=== PATIENT | female | born 1975 | race Caucasian/White ===

== ENCOUNTER 2016-03-16 14:41 | Emergency (ER) | payer OTHER ==
[2016-03-16] MEDS ORDERED: PHENAZOPYRIDINE 100 MG TAB PO STA (16:43)
[2016-03-16] MEDS ORDERED: SODIUM CHLORIDE 0.9% 1,000 ML IV STA (16:43)
--- NOTE | 2016-03-16 16:48 | ED ---
General Adult HPI - General Chief complaint: Syncope Stated complaint: Syncope,Fever Time Seen by Provider: 03/16/16 16:39 Source: patient, RN notes reviewed Mode of arrival: wheelchair Limitations: no limitations - History of Present Illness Initial comments: 41 yo female presents to the emergency Department chief complaint of dysuria. Patient states she's had burning with urination for the past few days. Patient states she's had a low-grade fever with this as well. Patient doesn't she should return feel lightheaded due to her pain and fever and she didn't have a simple episode. Patient's surgical injury during this. Patient states she's also had a cough with some production and some wheezing as well. Patient states she was feeling concerned she is becoming weak she thought that she should be evaluated. Patient denies any recent fever, chills, shortness of breath, chest pain, back pain, abdominal pain, nausea vomiting, numbness or tingling, constipation or diarrhea, headaches or visual changes, or any other current symptoms. - Related Data Previous Rx's Medication Instructions Recorded Orphenadrine [Norflex] 100 mg PO Q12H #10 tablet.er 02/15/16 predniSONE 50 mg PO DAILY #5 tab 02/15/16 Ciprofloxacin HCl [Cipro] 500 mg PO Q12HR #14 tablet 03/16/16 Phenazopyridine [Pyridium] 100 mg PO TID #6 tablet 03/16/16 traMADol HCl [Ultram] 50 mg PO Q4H PRN #20 tab 03/16/16 Allergies Allergy/AdvReac Type Severity Reaction Status Date / Time hydromorphone HCl Allergy Swelling Verified 03/16/16 16:10 [From Dilaudid] Review of Systems ROS Statement: Those systems with pertinent positive or pertinent negative responses have been documented in the HPI. ROS Other: All systems not noted in ROS Statement are negative. Past Medical History Past Medical History: No Reported History History of Any Multi-Drug Resistant Organisms: None Reported Past Surgical History: Section, Hernia Repair, Tubal Ligation Past Psychological History: No Psychological Hx Reported Smoking Status: Current every day smoker Past Alcohol Use History: None Reported Past Drug Use History: None Reported General Exam - General Exam Comments Initial Comments: General: The patient is awake and alert, in no distress, and does not appear acutely ill. Eye: Pupils are equal, round and reactive to light, extra-ocular movements are intact; there is normal conjunctiva bilaterally. No signs of icterus. Ears, nose, mouth and throat: There are moist mucous membranes and no oral lesions. Neck: The neck is supple, there is no tenderness. Cardiovascular: There is a regular rate and rhythm. No murmur, rub or gallop is appreciated. Respiratory: Lungs are clear to auscultation, respirations are non-labored, breath sounds are equal. No wheezes, stridor, rales, or rhonchi. Gastrointestinal: Soft, non-distended, supra pubic abdomen without masses or organomegaly noted. There is no rebound or guarding present. Bilateral CVA tenderness. Bowel sounds are unremarkable. Back: There is no tenderness to palpation in the midline. There is no obvious deformity. No rashes noted. Musculoskeletal: Normal ROM, no tenderness, There is no pedal edema. There is no calf tenderness or swelling. Sensation intact. Pulses equal bilaterally 2+. Neurological: CN II-XII intact, There are no obvious motor or sensory deficits. Coordination appears grossly intact. Speech is normal. Skin: Skin is warm and dry and no rashes or lesions are noted. Psychiatric: Cooperative, appropriate mood & affect, normal judgment. Limitations: no limitations Course Vital Signs 03/16/16 03/16/16 15:21 15:55 Temperature 98.4 F Pulse Rate 76 Respiratory 20 20 Rate Blood Pressure 101/75 O2 Sat by Pulse 99 Oximetry Medical Decision Making - Medical Decision Making 41-year-old female presents emergency Department with a chief complaint of dysuria and cough. Patient's CAT scan is reviewed. At this time the patient does appear to have medullary kidney which she was informed about. We did discuss close follow-up for this. Patient does appear to have UTI. The plan is most likely related to the infection versus possibly the sponge kidney. We did discuss with the patient. We did take antibiotics as prescribed and appropriate follow-up and return parameters. Patient stated that she understood all her questions have been answered. She will be discharged home. - Lab Data Result diagrams: 03/16/16 17:20 03/16/16 17:20 Lab Results 03/16/16 03/16/16 03/16/16 Range/Units 17:20 17:20 17:20 WBC 9.7 (3.8-10.6) k/uL RBC 4.58 (3.80-5.40) m/uL Hgb 14.1 (11.4-16.0) gm/dL Hct 42.8 (34.0-46.0) % MCV 93.6 (80.0-100.0) fL MCH 30.8 (25.0-35.0) pg MCHC 32.9 (31.0-37.0) g/dL RDW 13.0 (11.5-15.5) % Plt Count 336 (150-450) k/uL Neutrophils % 64 % Lymphocytes % 26 % Monocytes % 4 % Eosinophils % 5 % Basophils % 1 % Neutrophils # 6.2 (1.3-7.7) k/uL Lymphocytes # 2.5 (1.0-4.8) k/uL Monocytes # 0.3 (0-1.0) k/uL Eosinophils # 0.5 (0-0.7) k/uL Basophils # 0.1 (0-0.2) k/uL Sodium 145 (137-145) mmol/L Potassium 4.3 (3.5-5.1) mmol/L Chloride 107 (98-107) mmol/L Carbon Dioxide 24 (22-30) mmol/L Anion Gap 14 mmol/L BUN 15 (7-17) mg/dL Creatinine 0.71 (0.52-1.04) mg/dL Est GFR (MDRD) Af Amer >60 (>60 ml/min/1.73 sqM) Est GFR (MDRD) Non-Af >60 (>60 ml/min/1.73 sqM) Glucose 87 (74-99) mg/dL Calcium 9.2 (8.4-10.2) mg/dL Total Bilirubin 0.3 (0.2-1.3) mg/dL AST 15 (14-36) U/L ALT 28 (9-52) U/L Alkaline Phosphatase 87 (38-126) U/L Total Protein 7.8 (6.3-8.2) g/dL Albumin 4.4 (3.5-5.0) g/dL Urine Color Urine Appearance (Clear) Urine pH (5.0-8.0) Ur Specific [place] (1.001-1.035) Urine Protein (Negative) Urine Glucose (UA) (Negative) Urine Ketones (Negative) Urine Blood (Negative) Urine Nitrate (Negative) Urine Bilirubin (Negative) Urine Urobilinogen (<2.0) mg/dL Ur Leukocyte Esterase (Negative) Urine RBC (0-5) /hpf Urine WBC (0-5) /hpf Ur Squamous Epith Cells (0-4) /hpf Urine Mucus (None) /hpf Urine HCG, Qual Not Detected (Not Detectd) Influenza Type A RNA (Not Detectd) Influenza Type B (PCR) (Not Detectd) 03/16/16 03/16/16 Range/Units 17:20 17:20 WBC (3.8-10.6) k/uL RBC (3.80-5.40) m/uL Hgb (11.4-16.0) gm/dL Hct (34.0-46.0) % MCV (80.0-100.0) fL MCH (25.0-35.0) pg MCHC (31.0-37.0) g/dL RDW (11.5-15.5) % Plt Count (150-450) k/uL Neutrophils % % Lymphocytes % % Monocytes % % Eosinophils % % Basophils % % Neutrophils # (1.3-7.7) k/uL Lymphocytes # (1.0-4.8) k/uL Monocytes # (0-1.0) k/uL Eosinophils # (0-0.7) k/uL Basophils # (0-0.2) k/uL Sodium (137-145) mmol/L Potassium (3.5-5.1) mmol/L Chloride (98-107) mmol/L Carbon Dioxide (22-30) mmol/L Anion Gap mmol/L BUN (7-17) mg/dL Creatinine (0.52-1.04) mg/dL Est GFR (MDRD) Af Amer (>60 ml/min/1.73 sqM) Est GFR (MDRD) Non-Af (>60 ml/min/1.73 sqM) Glucose (74-99) mg/dL Calcium (8.4-10.2) mg/dL Total Bilirubin (0.2-1.3) mg/dL AST (14-36) U/L ALT (9-52) U/L Alkaline Phosphatase (38-126) U/L Total Protein (6.3-8.2) g/dL Albumin (3.5-5.0) g/dL Urine Color Light Red Urine Appearance Turbid H (Clear) Urine pH 6.0 (5.0-8.0) Ur Specific [place] 1.022 (1.001-1.035) Urine Protein 2+ H (Negative) Urine Glucose (UA) Negative (Negative) Urine Ketones 1+ H (Negative) Urine Blood Large H (Negative) Urine Nitrate Negative (Negative) Urine Bilirubin Negative (Negative) Urine Urobilinogen 2.0 (<2.0) mg/dL Ur Leukocyte Esterase Large H (Negative) Urine RBC >182 H (0-5) /hpf Urine WBC >182 H (0-5) /hpf Ur Squamous Epith Cells 5 H (0-4) /hpf Urine Mucus Occasional H (None) /hpf Urine HCG, Qual (Not Detectd) Influenza Type A RNA Not Detected (Not Detectd) Influenza Type B (PCR) Not Detected (Not Detectd) - Radiology Data Radiology results: report reviewed, image reviewed Disposition Clinical Impression: Medullary sponge kidney, UTI (urinary tract infection) Disposition: HOME SELF-CARE Condition: Stable Instructions: Urinary Tract Infection in Women (ED) Additional Instructions: Please use medication as discussed. Please follow up with family doctor if symptoms have not improved over the next two days. Please return to the emergency room if your symptoms increase or worsen or for any other concerns. Prescriptions: Ciprofloxacin HCl [Cipro] 500 mg PO Q12HR #14 tablet Phenazopyridine [Pyridium] 100 mg PO TID #6 tablet traMADol HCl [Ultram] 50 mg PO Q4H PRN #20 tab PRN Reason: Pain Referrals: Ange Maldonado MD [Primary Care Provider] - 1-2 days Time of Disposition: 19:04
[2016-03-16] MEDS ORDERED: KETOROLAC 30 MG/ML 1 ML VIAL IVP STA (17:24)
[2016-03-16 17:32] LABS: Basophils # (A) 0.1 k/uL (0-0.2); Basophils % (A) 1 %; CH 31.8; CHCM 34.1; Eosinophils # (A) 0.5 k/uL (0-0.7); Eosinophils % (A) 5 %; HCT 42.8 % (34.0-46.0); HDW 2.71; HGB 14.1 gm/dL (11.4-16.0); Luc # (Auto) 0.08; Luc % (Auto) 1; Lymphocytes # (A) 2.5 k/uL (1.0-4.8); Lymphocytes % (A) 26 %; MCH 30.8 pg (25.0-35.0); MCHC 32.9 g/dL (31.0-37.0); MCV 93.6 fL (80.0-100.0); Mean Platelet Volume 8.1; Monocytes # (A) 0.3 k/uL (0-1.0); Monocytes % (A) 4 %; Neutrophils # (A) 6.2 k/uL (1.3-7.7); Neutrophils % (A) 64 %; RBC 4.58 m/uL (3.80-5.40); WBC 9.7 k/uL (3.8-10.6)
[2016-03-16 17:37] LABS: Appearance,Urine Turbid (Clear); Bilirubin,Urine Negative (Negative); Glucose,Urine (UA) Negative (Negative); Ketones,Urine 1+ (Negative); Leukocyte Esterase,Urine Large (Negative); Mucus,Urine Occasional /hpf; Nitrite,Urine Negative (Negative); Particle Count 10015; Protein,Urine 2+ (Negative); RBC,Urine >182 /hpf (0-5); Specific Gravity,Urine 1.022 (1.001-1.035); Squamous Epithelial Cell,Urine 5 /hpf (0-4); UA Billing (MACRO vs. MICRO) MICRO; WBC,Urine >182 /hpf (0-5)
[2016-03-16 17:40] LABS: ALT 28 U/L (9-52); AST 15 U/L (14-36); Alkaline Phosphatase 87 U/L (38-126); Anion Gap 14 mmol/L; Blood Urea Nitrogen 15 mg/dL (7-17); Calcium 9.2 mg/dL (8.4-10.2); Carbon Dioxide 24 mmol/L (22-30); Chloride 107 mmol/L (98-107); Glucose 87 mg/dL (74-99); Non-African American GFR(MDRD) >60 (>60 ml/min/1.73 sqM); Potassium 4.3 mmol/L (3.5-5.1); Sodium 145 mmol/L (137-145); Total Bilirubin 0.3 mg/dL (0.2-1.3); Total Protein 7.8 g/dL (6.3-8.2)
--- NOTE | 2016-03-16 18:07 | XR ---
EXAMINATION TYPE: XR chest 2V DATE OF EXAM: 03/16/2016 5:37 PM COMPARISON: Prior chest x-ray reported August 2014 HISTORY: Syncope and cough TECHNIQUE: Frontal and lateral views of the chest are obtained. FINDINGS: There is no focal air space opacity, pleural effusion, or pneumothorax seen. The cardiac silhouette size is within normal limits. The osseous structures are intact. IMPRESSION: No acute cardiopulmonary process.
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
[2016-03-16 19:44] VITALS: BP 110/65; PULSE 81; RESP 18; TEMP 97.3
== END 2016-03-16 19:30 | disposition home or self-care (01) ==
LOC: EC 14:41
DX: N39.0 Urinary tract infection, site not specified (principal); Q61.5 Medullary cystic kidney; R05 Cough; R16.0 Hepatomegaly, not elsewhere classified; N83.202 Unspecified ovarian cyst, left side; F17.200 Nicotine dependence, unspecified, uncomplicated; Z88.5 Allergy status to narcotic agent
CPT/HCPCS: 99284; 96374; 96361 ×2; 36415; 80053; 85025; 81001; 81025; 87040; 87086; 87502; 71020; 74176; J1885

== ENCOUNTER 2019-09-13 13:44 | Emergency (ER) | payer OTHER ==
[2019-09-13 13:51] VITALS: TEMP 98.9
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
[2019-09-13 14:54] LABS: Basophils # (A) 0.1 k/uL (0-0.2); Basophils % (A) 1 %; Eosinophils # (A) 0.3 k/uL (0-0.7); Eosinophils % (A) 4 %; HCT 39.4 % (34.0-46.0); HGB 12.9 gm/dL (11.4-16.0); Lymphocytes # (A) 2.8 k/uL (1.0-4.8); Lymphocytes % (A) 36 %; MCH 30.2 pg (25.0-35.0); MCHC 32.6 g/dL (31.0-37.0); MCV 92.6 fL (80.0-100.0); Mean Platelet Volume 8.3; Monocytes # (A) 0.4 k/uL (0-1.0); Monocytes % (A) 5 %; Neutrophils # (A) 4.1 k/uL (1.3-7.7); Neutrophils % (A) 52 %; Platelet Count 328 k/uL (150-450); RBC 4.26 m/uL (3.80-5.40); RDW 13.2 % (11.5-15.5); WBC 7.8 k/uL (3.8-10.6)
[2019-09-13 15:02] LABS: INR 0.9 (<1.2); Partial Thromboplastin Time 22.9 sec (22.0-30.0); Prothrombin Time 9.9 sec (9.0-12.0)
[2019-09-13 15:10] LABS: ALT 14 U/L (4-34); AST 21 U/L (14-36); African American GFR (CKD) >90 (>60 ml/min/1.73 sqM); Albumin 4.7 g/dL (3.5-5.0); Alkaline Phosphatase 66 U/L (38-126); Anion Gap 7 mmol/L; Blood Urea Nitrogen 10 mg/dL (7-17); Calcium 9.8 mg/dL (8.4-10.2); Carbon Dioxide 24 mmol/L (22-30); Chloride 107 mmol/L (98-107); Glucose 92 mg/dL (74-99); Non-African American GFR(CKD) >90 (>60 ml/min/1.73 sqM); Potassium 3.9 mmol/L (3.5-5.1); Sodium 138 mmol/L (137-145); Total Bilirubin 0.4 mg/dL (0.2-1.3); Total Protein 7.9 g/dL (6.3-8.2)
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
[2019-09-13] MEDS ORDERED: ACETAMINOPHEN TAB 325 MG TAB PO STA (15:46)
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
[2019-09-13 16:38] VITALS: BP 115/85
[2019-09-13] MEDS ORDERED: KETOROLAC 30 MG/ML 1 ML VIAL IVP STA (16:49)
[2019-09-13 17:01] VITALS: PULSE 78; RESP 15
== END 2019-09-13 17:09 | disposition home or self-care (01) ==
LOC: EC 13:44
DX: M25.511 Pain in right shoulder (principal); M25.512 Pain in left shoulder; M54.2 Cervicalgia; F17.200 Nicotine dependence, unspecified, uncomplicated; Z88.5 Allergy status to narcotic agent; Z88.8 Allergy status to other drugs, medicaments and biological substances; V89.2XXA Person injured in unspecified motor-vehicle accident, traffic, initial encounter; Y92.410 Unspecified street and highway as the place of occurrence of the external cause
CPT/HCPCS: 36415; 80053; 85025; 85610; 85730; 73562; 71046; 72128; 72125; 72131; 70450; 99284; 96374; J1885

== ENCOUNTER 2020-07-10 00:33 | Emergency (ER) | payer OTHER ==
[2020-07-10 00:45] VITALS: BP 116/81; PULSE 88; RESP 20; TEMP 98.3
[2020-07-10] MEDS ORDERED: LIDOCAINE 1% INJ 10MG/ML (20 ML MDV) SQ ONE (00:56)
--- NOTE | 2020-07-10 01:09 | ED ---
General Adult HPI - General Chief complaint: Wound/Laceration Stated complaint: Left finger lac Time Seen by Provider: 07/10/20 00:50 Source: patient Mode of arrival: ambulatory Limitations: no limitations - History of Present Illness Initial comments: 45-year-old female presents to the emergency room for laceration of the left index finger. Patient states she was trying to cut a kielbasa and accidentally cut her finger. This occurred about 3 hours prior to arrival. Patient states her tetanus is up-to-date within the past 5 years. Patient states that she came in today because it would not stop bleeding and opening back up. 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 - Related Data Previous Rx's Medication Instructions Recorded Orphenadrine [Norflex] 100 mg PO Q12H #10 tablet.er 02/15/16 predniSONE 50 mg PO DAILY #5 tab 02/15/16 Ciprofloxacin HCl [Cipro] 500 mg PO Q12HR #14 tablet 03/16/16 Phenazopyridine [Pyridium] 100 mg PO TID #6 tablet 03/16/16 traMADol HCl [Ultram] 50 mg PO Q4H PRN #20 tab 03/16/16 Cyclobenzaprine [Flexeril] 5 mg PO TID PRN #15 tablet 09/13/19 Allergies Allergy/AdvReac Type Severity Reaction Status Date / Time hydromorphone HCl Allergy Swelling Verified 07/10/20 00:45 [From Dilaudid] Morpholine Analogues AdvReac Itching Verified 07/10/20 00:45 Review of Systems ROS Statement: Those systems with pertinent positive or pertinent negative responses have been documented in the HPI. ROS Other: All systems not noted in ROS Statement are negative. Past Medical History Past Medical History: No Reported History History of Any Multi-Drug Resistant Organisms: None Reported Past Surgical History: Section, Hernia Repair, Tubal Ligation Past Psychological History: No Psychological Hx Reported Smoking Status: Current every day smoker Past Alcohol Use History: None Reported Past Drug Use History: None Reported General Exam Limitations: no limitations General appearance: alert, in no apparent distress Head exam: Present: atraumatic, normocephalic, normal inspection Eye exam: Present: normal appearance ENT exam: Present: normal exam, mucous membranes moist Neck exam: Present: normal inspection. Absent: tenderness, meningismus, lymphadenopathy Respiratory exam: Present: normal lung sounds bilaterally. Absent: respiratory distress, wheezes, rales, rhonchi, stridor Cardiovascular Exam: Present: regular rate, normal rhythm, normal heart sounds Extremities exam: Present: full ROM (Full range of motion of the left index finger.), normal capillary refill (Capillary refill less than 2 seconds, DP pulse 2+ left upper extremity.), other (Small 1 cm laceration to the tip of the left index finger. No foreign bodies. No evidence of infection.) Course Vital Signs 07/10/20 00:43 Temperature 98.3 F Pulse Rate 88 Respiratory 20 Rate Blood Pressure 116/81 O2 Sat by Pulse 99 Oximetry Procedures - Laceration Laceration #1 Consent Obtained: verbal consent Indication: laceration Site: hand Size (cm): 1 Description: linear Depth: simple, single layer Anesthetic Used: lidocaine 1% Anesthesia Technique: local infiltration Amount (mls): 1 Pre-repair: wound explored, irrigated extensively Type of Sutures: nylon Size of Sutures: 5-0 Number of Sutures: 2 Technique: simple, interrupted Patient Tolerated Procedure: well, no complications Medical Decision Making - Medical Decision Making I did offer glue versus suturing. Patient providers suturing. Laceration is repaired. Discussed return parameters the patient. Discussed care instructions. Disposition Clinical Impression: Laceration Disposition: HOME SELF-CARE Condition: Good Instructions (If sedation given, give patient instructions): Laceration (ED) Additional Instructions: Please keep the area clean. Monitor for signs of infection such as spreading or streaking redness, drainage or fever return if these occur. Return if you have any other worsening symptoms. Returnin 7 - 10 days for suture removal. Is patient prescribed a controlled substance at d/c from ED?: No Referrals: Foster Thomas [STAFF PHYSICIAN] - 1-2 days Time of Disposition: 01:09
== END 2020-07-10 01:41 | disposition home or self-care (01) ==
LOC: EC 00:33
DX: S61.211A Laceration without foreign body of left index finger without damage to nail, initial encounter (principal); W26.8XXA Contact with other sharp object(s), not elsewhere classified, initial encounter; F17.200 Nicotine dependence, unspecified, uncomplicated
CPT/HCPCS: 99282; 12001; 96372; J2001

== ENCOUNTER 2021-05-10 15:10 | Inpatient (IN) | payer OTHER ==
[2021-05-10] MEDS ORDERED: SODIUM CHLORIDE 0.9% 2,000 ML IV STA (15:54)
[2021-05-10] MEDS ORDERED: ONDANSETRON 4 MG/2 ML VIAL IVP STA (15:54)
[2021-05-10] MEDS ORDERED: ACETAMINOPHEN TAB 500 MG TAB PO STA (16:00)
[2021-05-10 16:50] LABS: ALT 26 U/L (4-34); AST 26 U/L (14-36); African American GFR (CKD) 18 (>60 ml/min/1.73 sqM); Albumin 3.3 g/dL (3.5-5.0); Alkaline Phosphatase 180 U/L (38-126); Anion Gap 15 mmol/L; Blood Urea Nitrogen 48 mg/dL (7-17); Calcium 8.6 mg/dL (8.4-10.2); Carbon Dioxide 18 mmol/L (22-30); Chloride 104 mmol/L (98-107); Glucose 116 mg/dL (74-99); Lipase <10 U/L (23-300); Non-African American GFR(CKD) 16 (>60 ml/min/1.73 sqM); Potassium 3.7 mmol/L (3.5-5.1); Sodium 137 mmol/L (137-145); Total Bilirubin 0.6 mg/dL (0.2-1.3); Total Protein 6.4 g/dL (6.3-8.2)
[2021-05-10 16:54] LABS: Appearance,Urine Turbid (Clear); Bacteria,Urine Many /hpf; Bilirubin,Urine Negative (Negative); Blood,Urine Moderate (Negative); Color,Urine Yellow; Glucose,Urine (UA) Trace (Negative); Hyaline Casts,Urine 21 /lpf (0-2); Ketones,Urine Negative (Negative); Leukocyte Esterase,Urine Large (Negative); Mucus,Urine Few /hpf; Nitrite,Urine Negative (Negative); Protein,Urine 3+ (Negative); RBC,Urine 52 /hpf (0-5); Specific Gravity,Urine 1.019 (1.001-1.035); Squamous Epithelial Cell,Urine 96 /hpf (0-4); Urobilinogen,Urine <2.0 mg/dL (<2.0); WBC,Urine >182 /hpf (0-5)
--- NOTE | 2021-05-10 17:03 | ED ---
Nausea/Vomiting/Diarrhea HPI - General Chief complaint: Nausea/Vomiting/Diarrhea Stated complaint: Vomiting, Fever Time Seen by Provider: 05/10/21 15:45 Source: patient Mode of arrival: ambulatory Limitations: no limitations - History of Present Illness Initial comments: Patient is a 46-year-old female who presents with a chief complaint of intractable nausea and vomiting 4 days. Patient reports that she woke up with the symptoms and has been unable to keep food or liquid down. Last bowel movement was today. Patient also reports generalized body aches and chills. Patient denies abdominal pain but does report back pain in the tailbone area, worsened with movement, no known mechanism of injury. Patient denies radicular symptoms including pain, numbness, and tingling down the bilateral legs. She denies shortness of breath, chest pain, groin numbness, dysuria, urinary incontinence, and urinary retention. She denies chance of , alcohol, and drug use. She does note history of medullary sponge kidney. - Related Data Home Medications Medication Instructions Recorded Confirmed No Known Home Medications 05/10/21 05/10/21 Allergies Allergy/AdvReac Type Severity Reaction Status Date / Time hydromorphone HCl Allergy Swelling Verified 05/10/21 17:50 [From Dilaudid] Morpholine Analogues AdvReac Itching Verified 05/10/21 17:50 Review of Systems ROS Statement: Those systems with pertinent positive or pertinent negative responses have been documented in the HPI. ROS Other: All systems not noted in ROS Statement are negative. Past Medical History Past Medical History: No Reported History History of Any Multi-Drug Resistant Organisms: None Reported Past Surgical History: Section, Hernia Repair, Tubal Ligation Past Psychological History: No Psychological Hx Reported Smoking Status: Current every day smoker Past Alcohol Use History: None Reported Past Drug Use History: None Reported General Exam Limitations: no limitations General appearance: alert, in no apparent distress Head exam: Present: atraumatic, normocephalic, normal inspection Eye exam: Present: normal appearance, PERRL, EOMI. Absent: scleral icterus, conjunctival injection, periorbital swelling ENT exam: Present: mucous membranes dry Respiratory exam: Present: wheezes (Patient reports she has a smoker's cough, denies shortness of breath) Cardiovascular Exam: Present: normal rhythm, tachycardia GI/Abdominal exam: Present: soft, tenderness (Patient is very tender with palpation of the right upper quadrant, positive Martinez's sign). Absent: distended, guarding, rebound, rigid Back exam: Present: normal inspection, full ROM, vertebral tenderness (Lumbosacral area). Absent: CVA tenderness (R), CVA tenderness (L) Neurological exam: Present: alert, oriented X3, CN II-XII intact Psychiatric exam: Present: normal affect, normal mood Skin exam: Present: warm, dry, intact, normal color. Absent: rash Course Vital Signs 05/10/21 05/10/21 15:19 17:52 Temperature 98.4 F Pulse Rate 109 H 94 Respiratory 20 16 Rate Blood Pressure 86/56 149/105 O2 Sat by Pulse 98 98 Oximetry Medical Decision Making - Medical Decision Making This is a 46-year-old female who presents with intractable nausea,/vomiting and back pain. Thorough history and examination were performed. Patient is afebrile. During my abdominal exam patient is very tender with palpation of the right upper quadrant. Laboratory studies revealed leukocytosis with left shift at 20.4 and 17.2 respectively. Patient has acute kidney injury with creatinine at 3.36 and BUN at 48. Alk phos is elevated at 180. Urinalysis reveals moderate blood, > 182 WBC, many bacteria however is contaminated by 96 squamous cells. Urine hCG is negative. Abdominal ultrasound limited reveals no gallstones or dilated ducts, there is hepatomegaly. CT of the abdomen and pelvis without contrast reveals significant right renal swelling without any significant hydronephrosis, consistent with acute pyelonephritis. Lumbar spine x-ray is unremarkable. Patient does meet SIRS criteria with tachycardia and leukocytosis. Blood c ultures were drawn and Rocephin was given. Patient given Tylenol for pain and Zofran for nausea. On reevaluation patient is still very nauseous. Reglan was given with moderate relief. Case discussed with Sarah Ingram. Patient will be admitted with nephrology consult for further evaluation and management. Results discussed with patient who verbalizes understanding and is agreeable to plan. Dr. Berman is my attending. - Lab Data Result diagrams: 05/10/21 16:05 05/10/21 16:05 Lab Results 05/10/21 05/10/21 05/10/21 Range/Units 16:05 16:05 16:16 WBC 20.4 H (3.8-10.6) k/uL RBC 4.16 (3.80-5.40) m/uL Hgb 13.0 (11.4-16.0) gm/dL Hct 39.1 (34.0-46.0) % MCV 94.0 (80.0-100.0) fL MCH 31.2 (25.0-35.0) pg MCHC 33.2 (31.0-37.0) g/dL RDW 13.3 (11.5-15.5) % Plt Count 115 L (150-450) k/uL MPV 11.0 Neutrophils % 84 % Lymphocytes % 8 % Monocytes % 4 % Eosinophils % 0 % Basophils % 0 % Neutrophils # 17.2 H (1.3-7.7) k/uL Lymphocytes # 1.5 (1.0-4.8) k/uL Monocytes # 0.9 (0-1.0) k/uL Eosinophils # 0.0 (0-0.7) k/uL Basophils # 0.1 (0-0.2) k/uL Sodium 137 (137-145) mmol/L Potassium 3.7 (3.5-5.1) mmol/L Chloride 104 (98-107) mmol/L Carbon Dioxide 18 L (22-30) mmol/L Anion Gap 15 mmol/L BUN 48 H (7-17) mg/dL Creatinine 3.36 H (0.52-1.04) mg/dL Est GFR (CKD-EPI)AfAm 18 (>60 ml/min/1.73 sqM) Est GFR (CKD-EPI)NonAf 16 (>60 ml/min/1.73 sqM) Glucose 116 H (74-99) mg/dL Plasma Lactic Acid Jovany (0.7-2.0) mmol/L Calcium 8.6 (8.4-10.2) mg/dL Total Bilirubin 0.6 (0.2-1.3) mg/dL AST 26 (14-36) U/L ALT 26 (4-34) U/L Alkaline Phosphatase 180 H (38-126) U/L Total Protein 6.4 (6.3-8.2) g/dL Albumin 3.3 L (3.5-5.0) g/dL Lipase <10 L (23-300) U/L Urine Color Yellow Urine Appearance Turbid H (Clear) Urine pH 6.0 (5.0-8.0) Ur Specific Waggoner 1.019 (1.001-1.035) Urine Protein 3+ H (Negative) Urine Glucose (UA) Trace H (Negative) Urine Ketones Negative (Negative) Urine Blood Moderate H (Negative) Urine Nitrite Negative (Negative) Urine Bilirubin Negative (Negative) Urine Urobilinogen <2.0 (<2.0) mg/dL Ur Leukocyte Esterase Large H (Negative) Urine RBC 52 H (0-5) /hpf Urine WBC >182 H (0-5) /hpf Ur Squamous Epith Cells 96 H (0-4) /hpf Urine Bacteria Many H (None) /hpf Hyaline Casts 21 H (0-2) /lpf Urine Mucus Few H (None) /hpf Urine HCG, Qual (Not Detectd) Coronavirus (PCR) (Not Detectd) Influenza Type A RNA (Not Detectd) Influenza Type B (PCR) (Not Detectd) 05/10/21 05/10/21 05/10/21 Range/Units 16:16 16:16 16:16 WBC (3.8-10.6) k/uL RBC (3.80-5.40) m/uL Hgb (11.4-16.0) gm/dL Hct (34.0-46.0) % MCV (80.0-100.0) fL MCH (25.0-35.0) pg MCHC (31.0-37.0) g/dL RDW (11.5-15.5) % Plt Count (150-450) k/uL MPV Neutrophils % % Lymphocytes % % Monocytes % % Eosinophils % % Basophils % % Neutrophils # (1.3-7.7) k/uL Lymphocytes # (1.0-4.8) k/uL Monocytes # (0-1.0) k/uL Eosinophils # (0-0.7) k/uL Basophils # (0-0.2) k/uL Sodium (137-145) mmol/L Potassium (3.5-5.1) mmol/L Chloride (98-107) mmol/L Carbon Dioxide (22-30) mmol/L Anion Gap mmol/L BUN (7-17) mg/dL Creatinine (0.52-1.04) mg/dL Est GFR (CKD-EPI)AfAm (>60 ml/min/1.73 sqM) Est GFR (CKD-EPI)NonAf (>60 ml/min/1.73 sqM) Glucose (74-99) mg/dL Plasma Lactic Acid Jovany (0.7-2.0) mmol/L Calcium (8.4-10.2) mg/dL Total Bilirubin (0.2-1.3) mg/dL AST (14-36) U/L ALT (4-34) U/L Alkaline Phosphatase (38-126) U/L Total Protein (6.3-8.2) g/dL Albumin (3.5-5.0) g/dL Lipase (23-300) U/L Urine Color Urine Appearance (Clear) Urine pH (5.0-8.0) Ur Specific Waggoner (1.001-1.035) Urine Protein (Negative) Urine Glucose (UA) (Negative) Urine Ketones (Negative) Urine Blood (Negative) Urine Nitrite (Negative) Urine Bilirubin (Negative) Urine Urobilinogen (<2.0) mg/dL Ur Leukocyte Esterase (Negative) Urine RBC (0-5) /hpf Urine WBC (0-5) /hpf Ur Squamous Epith Cells (0-4) /hpf Urine Bacteria (None) /hpf Hyaline Casts (0-2) /lpf Urine Mucus (None) /hpf Urine HCG, Qual Not Detected (Not Detectd) Coronavirus (PCR) Not Detected (Not Detectd) Influenza Type A RNA Not Detected (Not Detectd) Influenza Type B (PCR) Not Detected (Not Detectd) 05/10/21 Range/Units 19:07 WBC (3.8-10.6) k/uL RBC (3.80-5.40) m/uL Hgb (11.4-16.0) gm/dL Hct (34.0-46.0) % MCV (80.0-100.0) fL MCH (25.0-35.0) pg MCHC (31.0-37.0) g/dL RDW (11.5-15.5) % Plt Count (150-450) k/uL MPV Neutrophils % % Lymphocytes % % Monocytes % % Eosinophils % % Basophils % % Neutrophils # (1.3-7.7) k/uL Lymphocytes # (1.0-4.8) k/uL Monocytes # (0-1.0) k/uL Eosinophils # (0-0.7) k/uL Basophils # (0-0.2) k/uL Sodium (137-145) mmol/L Potassium (3.5-5.1) mmol/L Chloride (98-107) mmol/L Carbon Dioxide (22-30) mmol/L Anion Gap mmol/L BUN (7-17) mg/dL Creatinine (0.52-1.04) mg/dL Est GFR (CKD-EPI)AfAm (>60 ml/min/1.73 sqM) Est GFR (CKD-EPI)NonAf (>60 ml/min/1.73 sqM) Glucose (74-99) mg/dL Plasma Lactic Acid Jovany 1.3 (0.7-2.0) mmol/L Calcium (8.4-10.2) mg/dL Total Bilirubin (0.2-1.3) mg/dL AST (14-36) U/L ALT (4-34) U/L Alkaline Phosphatase (38-126) U/L Total Protein (6.3-8.2) g/dL Albumin (3.5-5.0) g/dL Lipase (23-300) U/L Urine Color Urine Appearance (Clear) Urine pH (5.0-8.0) Ur Specific Waggoner (1.001-1.035) Urine Protein (Negative) Urine Glucose (UA) (Negative) Urine Ketones (Negative) Urine Blood (Negative) Urine Nitrite (Negative) Urine Bilirubin (Negative) Urine Urobilinogen (<2.0) mg/dL Ur Leukocyte Esterase (Negative) Urine RBC (0-5) /hpf Urine WBC (0-5) /hpf Ur Squamous Epith Cells (0-4) /hpf Urine Bacteria (None) /hpf Hyaline Casts (0-2) /lpf Urine Mucus (None) /hpf Urine HCG, Qual (Not Detectd) Coronavirus (PCR) (Not Detectd) Influenza Type A RNA (Not Detectd) Influenza Type B (PCR) (Not Detectd) Critical Care Time Critical Care Time: Yes Total Critical Care Time: 31 Disposition Clinical Impression: Pyelonephritis Disposition: ADMITTED IP TO THIS HOSP Condition: Fair Referrals: None,Stated [Primary Care Provider] - 1-2 days Decision Time: 19:28
[2021-05-10 17:31] LABS: Basophils # (A) 0.1 k/uL (0-0.2); Basophils % (A) 0 %; Eosinophils % (A) 0 %; HCT 39.1 % (34.0-46.0); Lymphocytes # (A) 1.5 k/uL (1.0-4.8); Lymphocytes % (A) 8 %; MCH 31.2 pg (25.0-35.0); MCHC 33.2 g/dL (31.0-37.0); Monocytes # (A) 0.9 k/uL (0-1.0); Monocytes % (A) 4 %; Neutrophils # (A) 17.2 k/uL (1.3-7.7); Neutrophils % (A) 84 %; Platelet Count 115 k/uL (150-450); RBC 4.16 m/uL (3.80-5.40); RDW 13.3 % (11.5-15.5); WBC 20.4 k/uL (3.8-10.6)
--- NOTE | 2021-05-10 17:31 | US ---
EXAMINATION TYPE: US abdomen limited DATE OF EXAM: 05/10/2021 COMPARISON: CT CLINICAL HISTORY: RUQ tenderness. EC patient with epigastric pain, nausea and vomiting, fever x 4 day s; patient stated has sponge kidney and enlarged liver EXAM MEASUREMENTS: Liver Length: 21.6 cm Gallbladder Wall: 0.2 cm CBD: 0.6 cm Right Kidney: 12.5 x 5.5 x 4.6 cm Pancreas: wnl Liver: enlarged as is greater than 18.0cm; periportal wall brightness is noted. 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 No gallstones or d ilated ducts. Hepatomegaly.
[2021-05-10] MEDS ORDERED: METOCLOPRAMIDE 5 MG/ML 2 ML VIAL IVP STA (18:09)
--- NOTE | 2021-05-10 18:17 | XR ---
EXAMINATION TYPE: XR lumbosacral spine min 4V DATE OF EXAM: 05/10/2021 COMPARISON: NONE HISTORY: Pain TECHNIQUE: 5 views FINDINGS: Lumbar vertebra have fairly normal spacing and alignment. Posterior elements are intact. Th ere is no compression fracture. Sacroiliac joints are intact. IMPRESSION: Negative lumbar spine exam. No fracture.
--- NOTE | 2021-05-10 18:29 | CT ---
EXAMINATION TYPE: CT abdomen pelvis wo con DATE OF EXAM: 05/10/2021 COMPARISON: 03/16/2016 HISTORY: vomiting, abd pain CT DLP: 592.3 mGycm Automated exposure control for dose reduction was used. Images obtained from the diaphragm to the floor the pelvis with no contrast. Lung bases are clear. There is no pleural effusion. Heart size is normal. There is no pericardial eff usion. Liver spleen pancreas and gallbladder appear intact. The bile ducts are not dilated. There is no adrenal mass. There is some hypertrophy left adrenal gland. Left kidney appears normal. T he right kidney is enlarged with heterogeneity. There is some fat stranding and fluid around the righ t kidney. Right ureter not definitely dilated. Bladder distends smoothly. The lumbar vertebrae have n ormal alignment. Posterior elements are intact. There is no compression fracture. The uterus is antev erted. There is no pelvic mass. There is no free fluid in the pelvis. There is no inguinal hernia. There is no mesenteric edema. There is no ascites or free air. There is no bowel obstruction. Appendi x not definitely seen. No sign of thickened appendix. IMPRESSION: Significant right renal swelling without any significant hydronephrosis. This is consistent with acut e pyelonephritis and is a change compared to the old exam. No evidence of ureteral calculus.
[2021-05-10] MEDS ORDERED: SODIUM CHLORIDE 0.9% 1,000 ML IV STA (18:38)
[2021-05-10] MEDS ORDERED: NALOXONE 0.4 MG/ML 1 ML VIAL IV PRN (18:59)
[2021-05-11] MEDS: ACETAMINOPHEN TAB 325 MG TAB PO PRN ×3 (02:32→19:46)
[2021-05-11] MEDS: PROCHLORPERAZINE 5 MG TAB PO PRN (03:06)
[2021-05-11 08:36] LABS: ALT 26 U/L (4-34); AST 25 U/L (14-36); African American GFR (CKD) 28 (>60 ml/min/1.73 sqM); Albumin 2.7 g/dL (3.5-5.0); Alkaline Phosphatase 168 U/L (38-126); Anion Gap 6 mmol/L; Blood Urea Nitrogen 46 mg/dL (7-17); Calcium 7.5 mg/dL (8.4-10.2); Carbon Dioxide 21 mmol/L (22-30); Chloride 107 mmol/L (98-107); Globulin 2.7 g/dL; Glucose 105 mg/dL (74-99); Magnesium 1.8 mg/dL (1.6-2.3); Non-African American GFR(CKD) 24 (>60 ml/min/1.73 sqM); Potassium 3.1 mmol/L (3.5-5.1); Sodium 134 mmol/L (137-145); Total Bilirubin 0.7 mg/dL (0.2-1.3); Total Protein 5.4 g/dL (6.3-8.2)
[2021-05-11] MEDS ORDERED: Potassium Replacement Protocol 1 EACH MISC MISCELLANE PRN (09:27)
[2021-05-11] MEDS: ONDANSETRON 4 MG/2 ML VIAL IVP PRN (09:44)
[2021-05-11] MEDS: SODIUM CHLORIDE 0.9% 1,000 ML IV SCH ×2 (09:45→19:47)
--- NOTE | 2021-05-11 10:03 | P.HPIM ---
History of Present Illness H&P Date: 05/11/21 Chief Complaint: Intractable nausea and vomiting Patient is a 46-year-old female with a known history of medullary sponge kidney, history of pyelonephritis, nephrolithiasis and currently everyday smoker presents to ER with complaints of intractable nausea and vomiting for the past 4 days. Patient is unable to keep down food and was having generalized body aches and fever/chills. Patient also complaining of bilateral flank pain lower back pain worsens with movement. Denied any numbness or tingling in the hands. No chest pain or shortness of breath. Denied any dysuria or hematuria. No cough or sputum production. Denies any recent illnesses. Patient presents to ER due to worsening symptoms. Patient had ultrasound abdomen showed 5 mm hyperechoic focus in the upper pole of the right kidney is probable lipoma. No gallstones or dilated ducts. Hepatomegaly. Lumbar spine x-ray showed negative lumbar spine exam. No fractures. CT of the abdomen pelvis showed significant right renal swelling without any significant hydronephrosis. This is consistent with acute pyelonephritis and did a change compared to the old exam. Laboratory data showed WBC 20.4 hemoglobin 13.0 and platelets 115 sodium 137 potassium 3.7 chloride 104 bicarb is 18 BUN 48 and creatinine 3.36 Urinalysis showed turbid with 3+ protein moderate blood nitrite negative and liver large leukocyte esterase elevated RBCs and WBCs COVID-19 PCR not detected. Review of Systems Constitutional: Patient does have generalized weakness and fever and chills.. Abdomen: Patient has had nausea vomiting abdominal pain and bilateral flank pain. Cardiovascular: Patient denies any chest pain or short of breath no palpitations. Respiratory: patient denied any cough or sputum production. No shortness of breath Neurologic: Patient denied any numbness or tingling headache. Musculoskeletal: Patient denies any complaints of joint swelling or deformity. Skin: Negative Psychiatric: Negative Endocrine: No heat or cold intolerance. No recent weight gain. Genitourinary: No dysuria or hematuria. All other 14 point ROS negative except the above Past Medical History Past Medical History: Pneumonia, Renal Disease Additional Past Medical History / Comment(s): Medullary sponge kidney, pyelonephritis, nephrolithiasis/passed stone on her own, UTI, History of Any Multi-Drug Resistant Organisms: None Reported Past Surgical History: Section, Hernia Repair, Tubal Ligation Additional Past Surgical History / Comment(s): Umbilical hernia repair Past Anesthesia/Blood Transfusion Reactions: No Reported Reaction Smoking Status: Current every day smoker - Past Family History Father Family Medical History: No Reported History Additional Family Medical History / Comment(s): Father is healthy Mother Family Medical History: Cancer Additional Family Medical History / Comment(s): Breast cancer survivor Medications and Allergies Home Medications Medication Instructions Recorded Confirmed Type No Known Home Medications 05/10/21 05/10/21 History Allergies Allergy/AdvReac Type Severity Reaction Status Date / Time hydromorphone HCl Allergy Swelling Verified 05/10/21 17:50 [From Dilaudid] Morpholine Analogues AdvReac Itching Verified 05/10/21 17:50 Physical Exam Vitals: Vital Signs Temp Pulse Resp BP Pulse Ox 05/11/21 07:00 98.9 F 102 H 18 98/64 99 05/11/21 02:33 101 F H 110 H 20 99/62 99 05/10/21 20:13 96 16 100/63 100 05/10/21 17:52 94 16 149/105 98 05/10/21 15:19 98.4 F 109 H 20 86/56 98 Intake and Output 05/10/21 05/11/21 05/11/21 22:59 06:59 14:59 Other: Weight 70.307 kg 70.307 kg PHYSICAL EXAMINATION: Patient is lying in the bed comfortably, no acute distress, awake alert and oriented.. HEENT: Normocephalic. Neck is supple. Pupils reactive. Nostrils clear. Oral cavity is moist. Neck reveals no JVD, carotid bruits, or thyromegaly. CHEST EXAMINATION: Trachea is central. Symmetrical expansion. Lung leger clear to auscultation and percussion. CARDIAC: Normal S1, S2 with no gallops. No murmurs ABDOMEN: Soft. Bowel sounds normal. No organomegaly. No abdominal bruits. Right flank tenderness Extremities: reveal no edema. No clubbing or cyanosis Neurologically awake, alert, oriented x3 with well-coordinated movements. No focal deficits noted Skin: No rash or skin lesions. Psychiatric: Cooperative. Nonsuicidal Musculoskeletal: No joint swelling or deformity. Normal range of motion. Results CBC & Chem 7: 05/11/21 07:59 05/11/21 07:59 Labs: Abnormal Lab Results - Last 24 Hours (Table) 05/10/21 05/10/21 05/10/21 Range/Units 16:05 16:05 16:16 WBC 20.4 H (3.8-10.6) k/uL Plt Count 115 L (150-450) k/uL Neutrophils # 17.2 H (1.3-7.7) k/uL Sodium (137-145) mmol/L Potassium (3.5-5.1) mmol/L Carbon Dioxide 18 L (22-30) mmol/L BUN 48 H (7-17) mg/dL Creatinine 3.36 H (0.52-1.04) mg/dL Glucose 116 H (74-99) mg/dL Calcium (8.4-10.2) mg/dL Alkaline Phosphatase 180 H (38-126) U/L Total Protein (6.3-8.2) g/dL Albumin 3.3 L (3.5-5.0) g/dL Lipase <10 L (23-300) U/L Urine Appearance Turbid H (Clear) Urine Protein 3+ H (Negative) Urine Glucose (UA) Trace H (Negative) Urine Blood Moderate H (Negative) Ur Leukocyte Esterase Large H (Negative) Urine RBC 52 H (0-5) /hpf Urine WBC >182 H (0-5) /hpf Ur Squamous Epith Cells 96 H (0-4) /hpf Urine Bacteria Many H (None) /hpf Hyaline Casts 21 H (0-2) /lpf Urine Mucus Few H (None) /hpf 05/11/21 Range/Units 07:59 WBC (3.8-10.6) k/uL Plt Count (150-450) k/uL Neutrophils # (1.3-7.7) k/uL Sodium 134 L (137-145) mmol/L Potassium 3.1 L (3.5-5.1) mmol/L Carbon Dioxide 21 L (22-30) mmol/L BUN 46 H (7-17) mg/dL Creatinine 2.39 H (0.52-1.04) mg/dL Glucose 105 H (74-99) mg/dL Calcium 7.5 L (8.4-10.2) mg/dL Alkaline Phosphatase 168 H (38-126) U/L Total Protein 5.4 L (6.3-8.2) g/dL Albumin 2.7 L (3.5-5.0) g/dL Lipase (23-300) U/L Urine Appearance (Clear) Urine Protein (Negative) Urine Glucose (UA) (Negative) Urine Blood (Negative) Ur Leukocyte Esterase (Negative) Urine RBC (0-5) /hpf Urine WBC (0-5) /hpf Ur Squamous Epith Cells (0-4) /hpf Urine Bacteria (None) /hpf Hyaline Casts (0-2) /lpf Urine Mucus (None) /hpf Microbiology - Last 24 Hours (Table) 05/10/21 16:16 Urine Culture - Preliminary Urine,Voided Thrombosis Risk Factor Assmnt - DVT/VTE Prophylaxis DVT/VTE Prophylaxis: Pharmacologic Prophylaxis ordered - Choose All That Apply Any of the Below Risk Factors Present?: Yes Each Factor Represents 1 point: Age 41-60 years Other Risk Factors: No Other congenital or acquired thrombophilia - If yes, enter type in comment: No Thrombosis Risk Factor Assessment Total Risk Factor Score: 1 Thrombosis Risk Factor Assessment Level: Low Risk Assessment and Plan Assessment: Acute pyelonephritis Severe sepsis secondary to above Intractable nausea and vomiting Acute kidney injury Likely prerenal. possible ATN due to infection/ hypotension. Creatinine level 3.36 on admission and baseline creatinine is 0.65 Medullary sponge kidney Hypokalemia History of renal stones DVT prophylaxis Plan: Patient will be continued on antibiotics above ceftriaxone and follow-up urine culture reports and blood cultures. Renal ultrasound showed no gallstones or dilated ducts. Continue with IV hydration and nephrology and ID was consulted. Continue to follow closely. Time with Patient: Greater than 30
--- NOTE | 2021-05-11 10:14 | P.NPCON ---
History of Present Illness - Reason for Consult acute renal failure - History of Present Illness Reason for consultation: Acute kidney injury History of present illness: Patient is a 46-year-old female seen in renal consultation for acute kidney injury. Patient was seen and examined in the emergency room. Patient's baseline creatinine from September 2019 was 0.65. On admission was 3.36 and is down to 2.39 today. Patient presented to the hospital with fever as well as nausea and vomiting going on for the last 4 days. Patient states her temperature was as high as 103F at home. She did receive normal saline bolus and is currently maintained on IV fluids with normal saline. She had mild diarrhea but is not improved. Patient's blood pressure has been low in the systolic 80s to 90s systolic this admission. Patient states she took 2 tablets of ibuprofen but then threw them up. No history of diabetes. No hematuria. Urine output improved with IV fluids. No family history of renal disease. Patient states she's been told about having medullary sponge kidney. 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 Vital signs are stable. Blood pressure on the lower side. General: The patient appeared well nourished and normally developed. HEENT: Head exam is unremarkable. LUNGS: Breath sounds decreased. HEART: Rate and Rhythm are regular. ABDOMEN: Soft, no distention. EXTREMITITES: No edema. Past Medical History Past Medical History: Pneumonia, Renal Disease Additional Past Medical History / Comment(s): Medullary sponge kidney, pyelonephritis, nephrolithiasis/passed stone on her own, UTI, History of Any Multi-Drug Resistant Organisms: None Reported Past Surgical History: Section, Hernia Repair, Tubal Ligation Additional Past Surgical History / Comment(s): Umbilical hernia repair Past Anesthesia/Blood Transfusion Reactions: No Reported Reaction Smoking Status: Current every day smoker - Past Family History Father Family Medical History: No Reported History Additional Family Medical History / Comment(s): Father is healthy Mother Family Medical History: Cancer Additional Family Medical History / Comment(s): Breast cancer survivor Medications and Allergies Home Medications Medication Instructions Recorded Confirmed Type No Known Home Medications 05/10/21 05/10/21 History Allergies Allergy/AdvReac Type Severity Reaction Status Date / Time hydromorphone HCl Allergy Swelling Verified 05/10/21 17:50 [From Dilaudid] Morpholine Analogues AdvReac Itching Verified 05/10/21 17:50 Physical Exam Vitals: Vital Signs Temp Pulse Resp BP Pulse Ox 05/11/21 07:00 98.9 F 102 H 18 98/64 99 05/11/21 02:33 101 F H 110 H 20 99/62 99 05/10/21 20:13 96 16 100/63 100 05/10/21 17:52 94 16 149/105 98 05/10/21 15:19 98.4 F 109 H 20 86/56 98 Intake and Output 05/10/21 05/11/21 05/11/21 22:59 06:59 14:59 Other: Weight 70.307 kg 70.307 kg Results - Lab Results Most recent lab results Calcium 7.5 mg/dL (8.4-10.2) L 05/11/21 07:59 Magnesium 1.8 mg/dL (1.6-2.3) 05/11/21 07:59 05/10/21 16:05 05/11/21 07:59 Assessment and Plan Plan: Assessment: 1. Acute kidney injury mostly prerenal secondary to hypovolemia from vomiting. Improving with IV hydration. Creatinine was 3.36 on admission is 2.39 today. Creatinine in September 2019 was 0.65. 2. UTI. CAT scan suggestive of pyelonephritis. No hydronephrosis. On antibiotics. 3. Hypokalemia from poor intake. Being replaced. 4. Severe sepsis secondary to pyelonephritis. She tested negative for coronavirus. 5. Metabolic acidosis secondary to acute kidney injury. Improved. 6. Questionable history of medullary sponge kidney. She does have history of kidney stones and last passed a kidney stone 2 years ago. CAT scan done this admission showed no kidney stones. Also no evidence of nephrocalcinosis was mentioned on CAT scan done this admission. Plan: Maintain IV fluids. Follow-up renal ultrasound. Follow-up cultures. Repeat labs in the morning. Continue to monitor renal function and urine output. Thank you for the consultation. I will continue to follow the patient with you during her hospital stay.
[2021-05-11] MEDS: POTASSIUM CHLORIDE 10 MEQ in WATER FOR INJECTION 1 100ML.BAG IVPB SCH ×2 (10:18→12:03)
[2021-05-11] MEDS ORDERED: FAMOTIDINE 20 MG/2 ML VIAL IV SCH (10:27)
[2021-05-11 10:37] LABS: Basophils # (A) 0.1 k/uL (0-0.2); Basophils % (A) 0 %; Eosinophils # (A) 0.1 k/uL (0-0.7); Eosinophils % (A) 0 %; HCT 37.4 % (34.0-46.0); Lymphocytes # (A) 0.5 k/uL (1.0-4.8); Lymphocytes % (A) 3 %; MCH 31.1 pg (25.0-35.0); MCHC 32.1 g/dL (31.0-37.0); MCV 96.9 fL (80.0-100.0); Monocytes # (A) 0.6 k/uL (0-1.0); Monocytes % (A) 3 %; Neutrophils # (A) 18.9 k/uL (1.3-7.7); Neutrophils % (A) 93 %; Platelet Count 138 k/uL (150-450); RBC 3.87 m/uL (3.80-5.40); RDW 12.9 % (11.5-15.5); WBC 20.3 k/uL (3.8-10.6)
[2021-05-11] MEDS ORDERED: CEFEPIME 2 GM in SODIUM CHLORIDE 0.9% 100 ML IVPB SCH (11:00)
[2021-05-11] MEDS: POTASSIUM CHLORIDE ER 20 MEQ TAB.ER PO SCH ×2 (12:21→13:52)
--- NOTE | 2021-05-11 12:37 | US ---
EXAMINATION TYPE: US kidneys/renal and bladder DATE OF EXAM: 05/11/2021 COMPARISON: NONE CLINICAL HISTORY: uti and bacteremia. bilateral flank pain, UTI EXAM MEASUREMENTS: Right Kidney: 12.9 x 5.6 x 5.6 cm Left Kidney: 12.5 x 4.6 x 5.5 cm Right Kidney: 0.8cm possible angiomyolipoma seen on superior cortex, and the cortex shows increased e chogenicity Left Kidney: No hydronephrosis or masses seen Bladder: wnl Bilateral Jets seen: right only There is no evidence for hydronephrosis at this point in time. No nephrolithiasis is seen. No maury s are identified. The urinary bladder is anechoic. 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
[2021-05-11 13:56] VITALS: BMI 24.3
[2021-05-11] MEDS: HYDROcodone/APAP 5-325MG 1 EACH TAB PO PRN ×2 (15:27→21:30)
[2021-05-11] MEDS: HEPARIN SODIUM,PORCINE/PF 5,000 UNIT/0.5 ML SYRINGE SQ SCH ×2 (15:28→21:31)
--- NOTE | 2021-05-11 22:40 | P.CONS ---
History of Present Illness - Reason for Consult Consult date: 05/11/21 Gram-negative bacteremia Requesting physician: Sarah Ley - Chief Complaint Nausea and vomiting x 4 days - History of Present Illness Patient is a 46-year-old female presenting to the ER last night for evaluation of intractable nausea and vomiting symptom has been going on for 4 days prior to presentation to hospital patient mention she was unable to keep food or liquid down patient was comfortable generalized body aches and chills and has been complaining of pain in the right flank area describing the pain to be more of a dull aching to sharp 6-7 out of 10 head no radiation patient did have some urinary burning and frequency with the symptom the patient has been evaluated by ER physician on arrival to the ER patient did have a fever of 101 F patient did have white count of 20,000 repeat is 20.3 with a left shift she also have elevated BUN and creatinine urine has been positive hernandez PCR was negative patient blood culture showed gram-negative bacilli that has prompted this infectious disease consultation patient did have an abdominal ultrasound which did shows a 5 mm hyperpneic with focus in the upper pole of the right kidney stone no gallstone, patient also have a CT of abdominal pelvis which shows a significant right renal swelling without any significant hydronephrosis consistent with acute pyelonephritis patient was started on Rocephin infectious disease was consulted for further management of antibiotic therapy Review of Systems Positive point has been mentioned in the HPI rest of the systems are negative Past Medical History Past Medical History: Pneumonia, Renal Disease Additional Past Medical History / Comment(s): Medullary sponge kidney, pyelonephritis, nephrolithiasis/passed stone on her own, UTI, History of Any Multi-Drug Resistant Organisms: None Reported Past Surgical History: Section, Hernia Repair, Tubal Ligation Additional Past Surgical History / Comment(s): Umbilical hernia repair Past Anesthesia/Blood Transfusion Reactions: No Reported Reaction Smoking Status: Current every day smoker - Past Family History Father Family Medical History: No Reported History Additional Family Medical History / Comment(s): Father is healthy Mother Family Medical History: Cancer Additional Family Medical History / Comment(s): Breast cancer survivor Medications and Allergies Home Medications Medication Instructions Recorded Confirmed Type No Known Home Medications 05/10/21 05/10/21 History Allergies Allergy/AdvReac Type Severity Reaction Status Date / Time hydromorphone HCl Allergy Swelling Verified 05/10/21 17:50 [From Dilaudid] Morpholine Analogues AdvReac Itching Verified 05/10/21 17:50 Physical Exam Vitals: Vital Signs Temp Pulse Resp BP Pulse Ox 05/11/21 10:29 101 F H 05/11/21 07:00 98.9 F 102 H 18 98/64 99 05/11/21 02:33 101 F H 110 H 20 99/62 99 05/10/21 20:13 96 16 100/63 100 05/10/21 17:52 94 16 149/105 98 05/10/21 15:19 98.4 F 109 H 20 86/56 98 Intake and Output 05/10/21 05/11/21 05/11/21 22:59 06:59 14:59 Other: Weight 70.307 kg 70.307 kg GENERAL DESCRIPTION: Middle-aged female lying in bed, no distress. No tachypnea or accessory muscle of respiration use. HEENT: Shows Pallor , no scleral icterus. Oral mucous membrane is dry. No pharyngeal erythema or thrush NECK: Trachea central, no thyromegaly. LUNGS: Unlabored breathing. Clear to auscultation anteriorly. No wheeze or crackle. HEART: S1, S2, regular rate and rhythm. No loud murmur ABDOMEN: Soft, right flank tenderness , no guarding or rigidity, no organomegaly EXTREMITIES: No edema of feet. SKIN: No rash, no masses palpable. NEUROLOGICAL: The patient is awake, alert, oriented x3, mood and affect normal. Results CBC & Chem 7: 05/11/21 07:59 05/11/21 07:59 Labs: Abnormal Lab Results - Last 24 Hours (Table) 05/10/21 05/10/21 05/10/21 Range/Units 16:05 16:05 16:16 WBC 20.4 H (3.8-10.6) k/uL Plt Count 115 L (150-450) k/uL Neutrophils # 17.2 H (1.3-7.7) k/uL Lymphocytes # (1.0-4.8) k/uL Sodium (137-145) mmol/L Potassium (3.5-5.1) mmol/L Carbon Dioxide 18 L (22-30) mmol/L BUN 48 H (7-17) mg/dL Creatinine 3.36 H (0.52-1.04) mg/dL Glucose 116 H (74-99) mg/dL Calcium (8.4-10.2) mg/dL Alkaline Phosphatase 180 H (38-126) U/L Total Protein (6.3-8.2) g/dL Albumin 3.3 L (3.5-5.0) g/dL Lipase <10 L (23-300) U/L Urine Appearance Turbid H (Clear) Urine Protein 3+ H (Negative) Urine Glucose (UA) Trace H (Negative) Urine Blood Moderate H (Negative) Ur Leukocyte Esterase Large H (Negative) Urine RBC 52 H (0-5) /hpf Urine WBC >182 H (0-5) /hpf Ur Squamous Epith Cells 96 H (0-4) /hpf Urine Bacteria Many H (None) /hpf Hyaline Casts 21 H (0-2) /lpf Urine Mucus Few H (None) /hpf 05/11/21 05/11/21 Range/Units 07:59 07:59 WBC 20.3 H (3.8-10.6) k/uL Plt Count 138 L (150-450) k/uL Neutrophils # 18.9 H (1.3-7.7) k/uL Lymphocytes # 0.5 L (1.0-4.8) k/uL Sodium 134 L (137-145) mmol/L Potassium 3.1 L (3.5-5.1) mmol/L Carbon Dioxide 21 L (22-30) mmol/L BUN 46 H (7-17) mg/dL Creatinine 2.39 H (0.52-1.04) mg/dL Glucose 105 H (74-99) mg/dL Calcium 7.5 L (8.4-10.2) mg/dL Alkaline Phosphatase 168 H (38-126) U/L Total Protein 5.4 L (6.3-8.2) g/dL Albumin 2.7 L (3.5-5.0) g/dL Lipase (23-300) U/L Urine Appearance (Clear) Urine Protein (Negative) Urine Glucose (UA) (Negative) Urine Blood (Negative) Ur Leukocyte Esterase (Negative) Urine RBC (0-5) /hpf Urine WBC (0-5) /hpf Ur Squamous Epith Cells (0-4) /hpf Urine Bacteria (None) /hpf Hyaline Casts (0-2) /lpf Urine Mucus (None) /hpf Microbiology - Last 24 Hours (Table) 05/10/21 18:45 Blood Culture - Final Blood 05/10/21 16:16 Urine Culture - Preliminary Urine,Voided Assessment and Plan (1) Pyelonephritis Current Visit: Yes Status: Acute Code(s): N12 - TUBULO-INTERSTITIAL NEPHRITIS, NOT SPCF ACUTE OR CHRONIC SNOMED Code(s): 90496722 Plan: 1patient presented to hospital with sepsis in this patient did have a fever elevated white count tachycardia with evidence of gram-negative bacteremia source is urinary and right-sided pyelonephritis with no evidence of any hydronephrosis. 2patient with gram-negative bacteremia with persistent elevated white count despite being on Rocephin questionable resistant gram-negative pathogen. 3discontinue Rocephin and start IV cefepime 2 g every 12 hours 4gentle IV fluid We will follow on clinical condition and cultures to further adjust medication if needed Thank you for this consultation will follow this patient along with you Time with Patient: Greater than 30
[2021-05-12] MEDS: HYDROcodone/APAP 5-325MG 1 EACH TAB PO PRN ×4 (04:26→23:03)
[2021-05-12] MEDS: SODIUM CHLORIDE 0.9% 1,000 ML IV SCH (08:47)
[2021-05-12] MEDS: FAMOTIDINE 20 MG TAB PO SCH (08:48)
[2021-05-12] MEDS: HEPARIN SODIUM,PORCINE/PF 5,000 UNIT/0.5 ML SYRINGE SQ SCH ×3 (08:48→20:38)
--- NOTE | 2021-05-12 09:57 | P.PN ---
Subjective Patient is seen in follow-up for acute kidney injury. Morning labs pending. Nausea and vomiting improved. Oral intake fair. Good urine output. Vital signs are stable. General: The patient appeared well nourished and normally developed. HEENT: Head exam is unremarkable. LUNGS: Breath sounds decreased. HEART: Rate and Rhythm are regular. ABDOMEN: Soft, no distention. EXTREMITITES: No edema. Objective - Vital Signs Vital signs: Vital Signs Temp 98.6 F 05/12/21 07:40 Pulse 94 05/12/21 07:40 Resp 18 05/12/21 07:40 BP 102/71 05/12/21 07:40 Pulse Ox 97 05/12/21 07:40 Intake & Output 05/11/21 05/12/21 05/12/21 18:59 06:59 18:59 Intake Total 295 Balance 295 Weight 70.307 kg Intake: Intake, IV Titration 175 Amount Cefepime 2 gm In Sodium 25 Chloride 0.9% 100 ml @ 25 mls/hr IVPB Q12H [facility] Rx# :[id number] Sodium Chloride 0.9% 1, 150 000 ml @ 75 mls/hr IV . [id number] [facility] Rx#:[id number] Oral 120 Other: Voiding Method Toilet Toilet # Voids 1 2 # Bowel Movements 1 - Labs CBC & Chem 7: 05/11/21 07:59 05/11/21 07:59 Labs: Abnormal Lab Results - Last 24 Hours (Table) 05/11/21 Range/Units 07:59 WBC 20.3 H (3.8-10.6) k/uL Plt Count 138 L (150-450) k/uL Neutrophils # 18.9 H (1.3-7.7) k/uL Lymphocytes # 0.5 L (1.0-4.8) k/uL Microbiology - Last 24 Hours (Table) 05/10/21 19:02 Blood Culture - Preliminary Blood No Growth after 24 hours 05/10/21 16:16 Urine Culture - Preliminary Urine,Voided Gram Neg Bacilli 05/10/21 18:45 Blood Culture Gram Stain - Preliminary Blood Blood Culture - Preliminary Escherichia coli 05/10/21 18:45 Blood Culture - Final Blood Assessment and Plan Plan: Assessment: 1. Acute kidney injury mostly prerenal secondary to hypovolemia from vomiting. Improving with IV hydration. Creatinine was 3.36 on admission and was 2.39 yesterday. Creatinine in September 2019 was 0.65. No hydronephrosis noted on u ltrasound. 2. E. coli UTI and bacteremia. CAT scan suggestive of pyelonephritis. No hydronephrosis. On antibiotics. 3. Hypokalemia from poor intake. Replaced. 4. Severe sepsis secondary to pyelonephritis. She tested negative for coronavirus. 5. Metabolic acidosis secondary to acute kidney injury. Improved. 6. Questionable history of medullary sponge kidney. She does have history of kidney stones and last passed a kidney stone 2 years ago. CAT scan done this admission showed no kidney stones. Also no evidence of nephrocalcinosis was mentioned on CAT scan done this admission. Plan: Maintain IV fluids. Follow-up cultures. Continue to monitor renal function and urine output. Follow-up morning labs.
[2021-05-12 12:31] LABS: African American GFR (CKD) 41.8 (60.0-200.0); Albumin 2.7 g/dL (3.8-4.9); Albumin/Globulin Ratio 1.13 (1.60-3.17); Anion Gap 9.4 mmol/L (10.00-18.00); BUN/Creat Ratio 18.24 Ratio (12.00-20.00); Carbon Dioxide 19.6 mmol/L (20.0-27.5); Globulin 2.4 g/dL (1.6-3.3); Magnesium 2.4 mg/dL (1.5-2.4); Potassium 3.4 mmol/L (3.5-5.5); Total Bilirubin 0.4 mg/dL (0.30-1.20); Total Protein 5.1 g/dL (6.2-8.2)
[2021-05-12 12:32] LABS: Basophils # (A) 0.07 X 10*3/uL (0.00-0.10); Basophils % (A) 0.5 %; Eosinophils # (A) 0.02 X 10*3/uL (0.04-0.35); Eosinophils % (A) 0.1 %; HGB 10.6 g/dL (12.0-15.0); Immature Grans, Automated 1.4 %; Immature Platelet Fraction 15.8 % (1.1-6.1); Lymphocytes # (A) 0.98 X 10*3/uL (0.90-5.00); Lymphocytes % (A) 6.4 %; MCHC 32.1 g/dL (32.0-37.0); MCV 93.5 fL (80.0-97.0); Mean Platelet Volume 12.8 fL (9.5-12.2); Monocytes % (A) 10.4 %; NRBC Per 100 WBC 0 /100 WBCS (0.0-0.0); Neutrophils # (A) 12.46 X 10*3/uL (1.80-7.70); Neutrophils % (A) 81.2 %; Platelet Count 97 X 10*3/uL (140-440); RBC 3.53 X 10*6/uL (4.10-5.20); RDW 13.3 % (11.5-14.5); WBC 15.34 X 10*3/uL (4.50-10.00)
[2021-05-12] MEDS ORDERED: POTASSIUM CHLORIDE ER 20 MEQ TAB.ER PO STA (12:59)
[2021-05-12] MEDS: ACETAMINOPHEN TAB 325 MG TAB PO PRN (20:38)
[2021-05-12] MEDS: ONDANSETRON 4 MG/2 ML VIAL IVP PRN (20:41)
[2021-05-13] MEDS: SODIUM CHLORIDE 0.9% 1,000 ML IV SCH ×3 (01:54→21:12)
[2021-05-13] MEDS: ACETAMINOPHEN TAB 325 MG TAB PO PRN ×4 (01:54→21:10)
[2021-05-13] MEDS: HYDROcodone/APAP 5-325MG 1 EACH TAB PO PRN ×3 (06:23→17:33)
[2021-05-13] MEDS: HEPARIN SODIUM,PORCINE/PF 5,000 UNIT/0.5 ML SYRINGE SQ SCH ×3 (07:51→23:36)
[2021-05-13] MEDS: FAMOTIDINE 20 MG TAB PO SCH ×2 (07:51→21:09)
[2021-05-13 09:59] LABS: African American GFR (CKD) 63.7 (60.0-200.0); Anion Gap 9.2 mmol/L (10.00-18.00); BUN/Creat Ratio 14.92 Ratio (12.00-20.00); Blood Urea Nitrogen 17.9 mg/dL (9.0-27.0); Calcium 7.7 mg/dL (8.7-10.3); Carbon Dioxide 20.8 mmol/L (20.0-27.5); Magnesium 2.2 mg/dL (1.5-2.4); Non-African American GFR(CKD) 54.9 (60.0-200.0); Potassium 3.6 mmol/L (3.5-5.5)
--- NOTE | 2021-05-13 10:01 | P.PN ---
Subjective Patient is seen in follow-up for acute kidney injury. Morning labs pending. Nausea and vomiting improved. Oral intake fair. Good urine output. Complaining of burning with urination as well as flank and abdominal discomfort. Vital signs are stable. General: The patient appeared well nourished and normally developed. HEENT: Head exam is unremarkable. LUNGS: Breath sounds decreased. HEART: Rate and Rhythm are regular. ABDOMEN: Soft, generalized tenderness. EXTREMITITES: No edema. Objective - Vital Signs Vital signs: Vital Signs Temp 99.4 F 05/13/21 07:52 Pulse 87 05/13/21 07:52 Resp 16 05/13/21 07:52 BP 106/68 05/13/21 07:52 Pulse Ox 96 05/13/21 07:52 Intake & Output 05/12/21 05/13/21 05/13/21 18:59 06:59 18:59 Intake Total 240 Balance 240 Intake: Oral 240 Other: Voiding Method Toilet External Catheter # Voids 0 2 - Labs CBC & Chem 7: 05/12/21 07:36 05/12/21 07:36 Labs: Abnormal Lab Results - Last 24 Hours (Table) 05/12/21 05/12/21 Range/Units 07:36 07:36 WBC 15.34 H (4.50-10.00) X 10*3/uL RBC 3.53 L (4.10-5.20) X 10*6/uL Hgb 10.6 L (12.0-15.0) g/dL Hct 33.0 L (37.2-46.3) % Plt Count 97 L (140-440) X 10*3/uL Plt Count Comment DECREASED A MPV 12.8 H (9.5-12.2) fL Immature Gran # 0.21 H (0.00-0.04) X 10*3/uL Neutrophils # 12.46 H (1.80-7.70) X 10*3/uL Monocytes # 1.60 H (0.20-1.00) X 10*3/uL Eosinophils # 0.02 L (0.04-0.35) X 10*3/uL Immature Plt Fraction 15.8 H (1.1-6.1) % Sodium 134 L (135-145) mmol/L Potassium 3.4 L (3.5-5.5) mmol/L Carbon Dioxide 19.6 L (20.0-27.5) mmol/L Anion Gap 9.40 L (10.00-18.00) mmol/L BUN 31.0 H (9.0-27.0) mg/dL Creatinine 1.7 H (0.6-1.5) mg/dL Est GFR (CKD-EPI)AfAm 41.8 L (60.0-200.0) Est GFR (CKD-EPI)NonAf 36.0 L (60.0-200.0) Calcium 8.0 L (8.7-10.3) mg/dL Alkaline Phosphatase 204 H (41-126) U/L Total Protein 5.1 L (6.2-8.2) g/dL Albumin 2.7 L (3.8-4.9) g/dL Albumin/Globulin Ratio 1.13 L (1.60-3.17) g/dL Microbiology - Last 24 Hours (Table) 05/10/21 19:02 Blood Culture - Preliminary Blood No Growth after 48 hours 05/10/21 16:16 Urine Culture - Final Urine,Voided Escherichia coli 05/10/21 18:45 Blood Culture Gram Stain - Preliminary Blood Blood Culture - Preliminary Escherichia coli Assessment and Plan Plan: Assessment: 1. Acute kidney injury mostly prerenal secondary to hypovolemia from vomiting and infection. Improving with IV hydration. Creatinine was 3.36 on admission and was 1.7 yesterday. Creatinine in September 2019 was 0.65. No hydronephrosis noted on ultrasound. 2. E. coli UTI and bacteremia. CAT scan suggestive of pyelonephritis. No hydronephrosis. On antibiotics. 3. Hypokalemia from poor intake. Replaced. 4. Severe sepsis secondary to pyelonephritis. She tested negative for co ronavirus. 5. Metabolic acidosis secondary to acute kidney injury. 6. Questionable history of medullary sponge kidney. She does have history of kidney stones and last passed a kidney stone 2 years ago. CAT scan done this admission showed no kidney stones. Also no evidence of nephrocalcinosis was mentioned on CAT scan done this admission. Plan: Maintain IV fluids. Continue to monitor renal function and urine output. Follow-up morning labs.
--- NOTE | 2021-05-13 10:34 | P.PN ---
Subjective Progress Note Date: 05/12/21 Principal diagnosis: E. coli urinary tract infection and bacteremia Patient is a 46-year female presented to hospital with flank pain nausea and vomiting this patient has been diagnosed with the E. coli ureteric infection/pyonephritis with secondary bacteremia. On today's evaluation that is 05/12/2021 the patient is afebrile this morning, the patient denies any further vomiting pain has decreased intensity no chest pain shortness of breath or cough no diarrhea Objective - Vital Signs Vital signs: Vital Signs Temp 98.6 F 05/12/21 07:40 Pulse 94 05/12/21 07:40 Resp 18 05/12/21 07:40 BP 102/71 05/12/21 07:40 Pulse Ox 97 05/12/21 07:40 Intake & Output 05/11/21 05/12/21 05/12/21 18:59 06:59 18:59 Intake Total 295 Balance 295 Weight 70.307 kg Intake: Intake, IV Titration 175 Amount Cefepime 2 gm In Sodium 25 Chloride 0.9% 100 ml @ 25 mls/hr IVPB Q12H [facility] Rx# :[id number] Sodium Chloride 0.9% 1, 150 000 ml @ 75 mls/hr IV . [id number] [facility] Rx#:[id number] Oral 120 Other: Voiding Method Toilet Toilet # Voids 1 2 # Bowel Movements 1 - Exam GENERAL DESCRIPTION: Middle-aged female lying in bed, no distress. No tachypnea or accessory muscle of respiration use. LUNGS: Unlabored breathing. Clear to auscultation anteriorly. No wheeze or crackle. HEART: S1, S2, regular rate and rhythm. No loud murmur ABDOMEN: Soft, no tenderness , guarding or rigidity, no organomegaly EXTREMITIES: No edema of feet. - Labs CBC & Chem 7: 05/12/21 07:36 05/13/21 06:41 Labs: Microbiology - Last 24 Hours (Table) 05/10/21 19:02 Blood Culture - Preliminary Blood No Growth after 24 hours 05/10/21 16:16 Urine Culture - Preliminary Urine,Voided Gram Neg Bacilli 05/10/21 18:45 Blood Culture Gram Stain - Preliminary Blood Blood Culture - Preliminary Escherichia coli 05/10/21 18:45 Blood Culture - Final Blood Assessment and Plan (1) Pyelonephritis Current Visit: Yes Status: Acute Code(s): N12 - TUBULO-INTERSTITIAL NEPHRITIS, NOT SPCF ACUTE OR CHRONIC SNOMED Code(s): 96104394 Plan: 1patient presented to hospital with sepsis in this patient did have a fever elevated white count tachycardia with evidence of gram-negative bacteremia source is urinary and right-sided pyelonephritis with no evidence of any hydronephrosis. 2Patient blood culture has been finalized with E. coli that is sensitive to Rocephin antibiotic has been adjusted to Rocephin 2 g daily, ultrasound did not show any structural normality. Time with Patient: Less than 30
[2021-05-13] MEDS ORDERED: POTASSIUM CHLORIDE ER 20 MEQ TAB.ER PO STA (14:44)
[2021-05-13] MEDS: ONDANSETRON 4 MG/2 ML VIAL IVP PRN (21:10)
--- NOTE | 2021-05-13 22:02 | P.PN ---
Subjective Progress Note Date: 05/12/21 Patient is a 46-year-old female with a known history of medullary sponge kidney, history of pyelonephritis, nephrolithiasis and currently everyday smoker presents to ER with complaints of intractable nausea and vomiting for the past 4 days. Patient is unable to keep down food and was having generalized body aches and fever/chills. Patient also complaining of bilateral flank pain lower back pain worsens with movement. Denied any numbness or tingling in the hands. No chest pain or shortness of breath. Denied any dysuria or hematuria. No cough or sputum production. Denies any recent illnesses. Patient presents to ER due to worsening symptoms. Patient had ultrasound abdomen showed 5 mm hyperechoic focus in the upper pole of the right kidney is probable lipoma. No gallstones or dilated ducts. Hepatomegaly. Lumbar spine x-ray showed negative lumbar spine exam. No fractures. CT of the abdomen pelvis showed significant right renal swelling without any significant hydronephrosis. This is consistent with acute pyelonephritis and did a change compared to the old exam. Laboratory data showed WBC 20.4 hemoglobin 13.0 and platelets 115 sodium 137 potassium 3.7 chloride 104 bicarb is 18 BUN 48 and creatinine 3.36 Urinalysis showed turbid with 3+ protein moderate blood nitrite negative and liver large leukocyte esterase elevated RBCs and WBCs COVID-19 PCR not detected. 05/12/2021 Patient is currently resting in bed. Awake alert and oriented. Feels weak and also complaining of nausea but improved compared to yesterday. No complaints of chest pain or shortness breath. Patient has been febrile overnight. Continued on antibiotics in the form of ceftriaxone 2 g daily. Blood cultures growing E. coli and urine culture showed gram-negative bacilli. Laboratory showed WBC trending down to 15.3 hemoglobin 10.6 and platelets 97 Sodium 134 potassium 3.4 chloride 105 BUN 31 and creatinine improved to 1.7 calcium 8.0 ID and nephrology is on board. Current medications reviewed. Objective - Vital Signs Vital signs: Vital Signs Temp 98.6 F 05/12/21 07:40 Pulse 94 05/12/21 07:40 Resp 18 05/12/21 07:40 BP 102/71 05/12/21 07:40 Pulse Ox 97 05/12/21 07:40 Intake & Output 05/11/21 05/12/21 05/12/21 18:59 06:59 18:59 Intake Total 295 Balance 295 Weight 70.307 kg Intake: Intake, IV Titration 175 Amount Cefepime 2 gm In Sodium 25 Chloride 0.9% 100 ml @ 25 mls/hr IVPB Q12H [facility] Rx# :[id number] Sodium Chloride 0.9% 1, 150 000 ml @ 75 mls/hr IV . [id number] [facility] Rx#:[id number] Oral 120 Other: Voiding Method Toilet Toilet # Voids 1 2 # Bowel Movements 1 - Exam PHYSICAL EXAMINATION: Patient is lying in the bed comfortably, no acute distress, awake alert and oriented.. HEENT: Normocephalic. Neck is supple. Pupils reactive. Nostrils clear. Oral cavity is moist. Neck reveals no JVD, carotid bruits, or thyromegaly. CHEST EXAMINATION: Trachea is central. Symmetrical expansion. Lung leger clear to auscultation and percussion. CARDIAC: Normal S1, S2 with no gallops. No murmurs ABDOMEN: Soft. Bowel sounds normal. No organomegaly. No abdominal bruits. Right flank tenderness Extremities: reveal no edema. No clubbing or cyanosis Neurologically awake, alert, oriented x3 with well-coordinated movements. No focal deficits noted Skin: No rash or skin lesions. Psychiatric: Cooperative. Nonsuicidal Musculoskeletal: No joint swelling or deformity. Normal range of motion. - Labs CBC & Chem 7: 05/12/21 07:36 05/13/21 06:41 Labs: Abnormal Lab Results - Last 24 Hours (Table) 05/12/21 05/12/21 Range/Units 07:36 07:36 WBC 15.34 H (4.50-10.00) X 10*3/uL RBC 3.53 L (4.10-5.20) X 10*6/uL Hgb 10.6 L (12.0-15.0) g/dL Hct 33.0 L (37.2-46.3) % Plt Count 97 L (140-440) X 10*3/uL Plt Count Comment DECREASED A MPV 12.8 H (9.5-12.2) fL Immature Gran # 0.21 H (0.00-0.04) X 10*3/uL Neutrophils # 12.46 H (1.80-7.70) X 10*3/uL Monocytes # 1.60 H (0.20-1.00) X 10*3/uL Eosinophils # 0.02 L (0.04-0.35) X 10*3/uL Immature Plt Fraction 15.8 H (1.1-6.1) % Sodium 134 L (135-145) mmol/L Potassium 3.4 L (3.5-5.5) mmol/L Carbon Dioxide 19.6 L (20.0-27.5) mmol/L Anion Gap 9.40 L (10.00-18.00) mmol/L BUN 31.0 H (9.0-27.0) mg/dL Creatinine 1.7 H (0.6-1.5) mg/dL Est GFR (CKD-EPI)AfAm 41.8 L (60.0-200.0) Est GFR (CKD-EPI)NonAf 36.0 L (60.0-200.0) Calcium 8.0 L (8.7-10.3) mg/dL Alkaline Phosphatase 204 H (41-126) U/L Total Protein 5.1 L (6.2-8.2) g/dL Albumin 2.7 L (3.8-4.9) g/dL Albumin/Globulin Ratio 1.13 L (1.60-3.17) g/dL Microbiology - Last 24 Hours (Table) 05/10/21 19:02 Blood Culture - Preliminary Blood No Growth after 24 hours 05/10/21 16:16 Urine Culture - Preliminary Urine,Voided Gram Neg Bacilli 05/10/21 18:45 Blood Culture Gram Stain - Preliminary Blood Blood Culture - Preliminary Escherichia coli 05/10/21 18:45 Blood Culture - Final Blood Assessment and Plan Assessment: Acute pyelonephritis E. coli bacteremia likely source from the UTI. Severe sepsis secondary to above Intractable nausea and vomiting Acute kidney injury Likely prerenal. possible ATN due to infection/ hypotension. Creatinine level 3.36 on admission and baseline creatinine is 0.65 Medullary sponge kidney Hypokalemia History of renal stones DVT prophylaxis Plan: Patient will be continued on antibiotics above ceftriaxone and follow-up final urine culture reports and blood cultures. Renal ultrasound showed no gallstones or dilated ducts. Continue with IV hydration and nephrology and ID is on board.Replace electrolyt es and symptomatic management for nausea and vomiting. GI and DVT prophylaxis. . Continue to follow closely. Time with Patient: Greater than 30
--- NOTE | 2021-05-13 22:07 | P.PN ---
Subjective Progress Note Date: 05/13/21 Patient is a 46-year-old female with a known history of medullary sponge kidney, history of pyelonephritis, nephrolithiasis and currently everyday smoker presents to ER with complaints of intractable nausea and vomiting for the past 4 days. Patient is unable to keep down food and was having generalized body aches and fever/chills. Patient also complaining of bilateral flank pain lower back pain worsens with movement. Denied any numbness or tingling in the hands. No chest pain or shortness of breath. Denied any dysuria or hematuria. No cough or sputum production. Denies any recent illnesses. Patient presents to ER due to worsening symptoms. Patient had ultrasound abdomen showed 5 mm hyperechoic focus in the upper pole of the right kidney is probable lipoma. No gallstones or dilated ducts. Hepatomegaly. Lumbar spine x-ray showed negative lumbar spine exam. No fractures. CT of the abdomen pelvis showed significant right renal swelling without any significant hydronephrosis. This is consistent with acute pyelonephritis and did a change compared to the old exam. Laboratory data showed WBC 20.4 hemoglobin 13.0 and platelets 115 sodium 137 potassium 3.7 chloride 104 bicarb is 18 BUN 48 and creatinine 3.36 Urinalysis showed turbid with 3+ protein moderate blood nitrite negative and liver large leukocyte esterase elevated RBCs and WBCs COVID-19 PCR not detected. 05/12/2021 Patient is currently resting in bed. Awake alert and oriented. Feels weak and also complaining of nausea but improved compared to yesterday. No complaints of chest pain or shortness breath. Patient has been febrile overnight. Continued on antibiotics in the form of ceftriaxone 2 g daily. Blood cultures growing E. coli and urine culture showed gram-negative bacilli. Laboratory showed WBC trending down to 15.3 hemoglobin 10.6 and platelets 97 Sodium 134 potassium 3.4 chloride 105 BUN 31 and creatinine improved to 1.7 calcium 8.0 ID and nephrology is on board. 05/13/2021 Patient is currently resting in the bed. Feels weak. Otherwise nausea did improve and able to tolerate oral diet and will be advanced to regular. No complaints of abdominal pain. No nausea or vomiting or diarrhea. Patient has fever with T-max 102.7. Currently being continued ceftriaxone 2 g daily. Blood cultures grew E. coli and is pansensitive. Laboratory showed renal function improved with creatinine level 1.2, BUN 17.9 potassium 3.6. Current medications reviewed. Objective - Vital Signs Vital signs: Vital Signs Temp 99.4 F 05/13/21 07:52 Pulse 87 05/13/21 07:52 Resp 16 05/13/21 07:52 BP 106/68 05/13/21 07:52 Pulse Ox 96 05/13/21 07:52 Intake & Output 05/12/21 05/13/21 05/13/21 18:59 06:59 18:59 Intake Total 240 Balance 240 Intake: Oral 240 Other: Voiding Method Toilet External Catheter # Voids 0 2 - Exam PHYSICAL EXAMINATION: Patient is lying in the bed comfortably, no acute distress, awake alert and oriented.. HEENT: Normocephalic. Neck is supple. Pupils reactive. Nostrils clear. Oral cavity is moist. Neck reveals no JVD, carotid bruits, or thyromegaly. CHEST EXAMINATION: Trachea is central. Symmetrical expansion. Lung leger clear to auscultation and percussion. CARDIAC: Normal S1, S2 with no gallops. No murmurs ABDOMEN: Soft. Bowel sounds normal. No organomegaly. No abdominal bruits. Right flank tenderness Extremities: reveal no edema. No clubbing or cyanosis Neurologically awake, alert, oriented x3 with well-coordinated movements. No focal deficits noted Skin: No rash or skin lesions. Psychiatric: Cooperative. Nonsuicidal Musculoskeletal: No joint swelling or deformity. Normal range of motion. - Labs CBC & Chem 7: 05/12/21 07:36 05/13/21 06:41 Labs: Abnormal Lab Results - Last 24 Hours (Table) 05/13/21 Range/Units 06:41 Anion Gap 9.20 L (10.00-18.00) mmol/L Est GFR (CKD-EPI)NonAf 54.9 L (60.0-200.0) Calcium 7.7 L (8.7-10.3) mg/dL Microbiology - Last 24 Hours (Table) 05/10/21 18:45 Blood Culture Gram Stain - Final Blood Blood Culture - Final Escherichia coli 05/10/21 19:02 Blood Culture - Preliminary Blood No Growth after 48 hours 05/10/21 16:16 Urine Culture - Final Urine,Voided Escherichia coli Assessment and Plan Assessment: Acute pyelonephritis E. coli bacteremia likely source from the UTI. Severe sepsis secondary to above Intractable nausea and vomiting Acute kidney injury Likely prerenal. possible ATN due to infection/ hypotension. Creatinine level 3.36 on admission and baseline creatinine is 0.65 Medullary sponge kidney Hypokalemia History of renal stones DVT prophylaxis Plan: Patient will be continued on antibiotics above ceftriaxone and follow-up final urine culture reports and blood cultures. Renal ultrasound showed no gallstones or dilated ducts. Continue with IV hydration and nephrology and ID is on board.Replace electrolytes and symptomatic management for nausea and vomiting. GI and DVT prophylaxis. . Continue to follow closely. Time with Patient: Greater than 30
[2021-05-13] MEDS: HYDROcodone/APAP 7.5-325MG 1 EACH TAB PO PRN (23:37)
[2021-05-14] MEDS: HYDROcodone/APAP 7.5-325MG 1 EACH TAB PO PRN ×3 (06:07→19:49)
[2021-05-14] MEDS: HEPARIN SODIUM,PORCINE/PF 5,000 UNIT/0.5 ML SYRINGE SQ SCH ×2 (09:18→16:54)
[2021-05-14] MEDS: FAMOTIDINE 20 MG TAB PO SCH ×2 (09:18→19:49)
[2021-05-14 09:23] LABS: African American GFR (CKD) 79.3 (60.0-200.0); Anion Gap 16.9 mmol/L (10.00-18.00); BUN/Creat Ratio 13.6 Ratio (12.00-20.00); Blood Urea Nitrogen 13.6 mg/dL (9.0-27.0); Carbon Dioxide 19.1 mmol/L (20.0-27.5); Magnesium 1.9 mg/dL (1.5-2.4); Non-African American GFR(CKD) 68.5 (60.0-200.0); Potassium 3.9 mmol/L (3.5-5.5)
--- NOTE | 2021-05-14 09:52 | P.PN ---
Subjective Patient is seen in follow-up for acute kidney injury. Renal function continues to improve. Vomiting again. Oral intake poor. Good urine output. Still complains of dysuria. Vital signs are stable. General: The patient appeared well nourished and normally developed. HEENT: Head exam is unremarkable. LUNGS: Breath sounds decreased. HEART: Rate and Rhythm are regular. ABDOMEN: Soft, generalized tenderness. EXTREMITITES: No edema. Objective - Vital Signs Vital signs: Vital Signs Temp 99.7 F H 05/14/21 04:32 Pulse 82 05/14/21 04:32 Resp 16 05/14/21 04:32 BP 112/70 05/14/21 04:32 Pulse Ox 98 05/14/21 04:32 Intake & Output 05/13/21 05/14/21 05/14/21 18:59 06:59 18:59 Intake Total 300 Balance 300 Intake: Intake, IV Titration 300 Amount Sodium Chloride 0.9% 1, 300 000 ml @ 75 mls/hr IV . [id number] [facility] Rx#:[id number] Other: Voiding Method External Catheter External Catheter # Voids 1 1 - Labs CBC & Chem 7: 05/12/21 07:36 05/14/21 06:16 Labs: Abnormal Lab Results - Last 24 Hours (Table) 05/13/21 05/14/21 Range/Units 06:41 06:16 Carbon Dioxide 19.1 L (20.0-27.5) mmol/L Anion Gap 9.20 L (10.00-18.00) mmol/L Est GFR (CKD-EPI)NonAf 54.9 L (60.0-200.0) Calcium 7.7 L 8.0 L (8.7-10.3) mg/dL Microbiology - Last 24 Hours (Table) 05/10/21 19:02 Blood Culture - Preliminary Blood No Growth after 72 hours 05/10/21 18:45 Blood Culture Gram Stain - Final Blood Blood Culture - Final Escherichia coli Assessment and Plan Plan: Assessment: 1. Acute kidney injury mostly prerenal secondary to hypovolemia from vomiting and infection. Improving with IV hydration. Creatinine was 3.36 on admission and 1.0 today. Creatinine in September 2019 was 0.65. No hydronephrosis noted on ultrasound. 2. E. coli UTI and bacteremia. CAT scan suggestive of pyelonephritis. No hydronephrosis. On antibiotics. 3. Hypokalemia from poor intake. Replaced. Improved. 4. Severe sepsis secondary to pyelonephritis. She tested negative for coronavirus. 5. Metabolic acidosis secondary to acute kidney injury. Stable. 6. Questionable history of medullary sponge kidney. She does have history of k idney stones and last passed a kidney stone 2 years ago. CAT scan done this admission showed no kidney stones. Also no evidence of nephrocalcinosis was mentioned on CAT scan done this admission. Plan: Maintain IV fluids - change to LR. Continue to monitor renal function and urine output. Add oral bicarbonate.
[2021-05-14] MEDS: LACTATED RINGERS 1,000 ML IV SCH (11:23)
[2021-05-14 11:33] LABS: HCT 38.4 % (37.2-46.3); HGB 12.1 g/dL (12.0-15.0); MCH 30.1 pg (27.0-32.0); MCHC 31.5 g/dL (32.0-37.0); MCV 95.5 fL (80.0-97.0); Mean Platelet Volume 11.9 fL (9.5-12.2); NRBC Per 100 WBC 0 /100 WBCS (0.0-0.0); Platelet Count 102 X 10*3/uL (140-440); RBC 4.02 X 10*6/uL (4.10-5.20); RDW 13.5 % (11.5-14.5); WBC 18.91 X 10*3/uL (4.50-10.00)
[2021-05-14 11:34] LABS: Basophils # (M) 0.19 X 10*3/uL (0.00-0.10); Eosinophils # (M) 0 X 10*3/uL (0.04-0.35); Immature Platelet Fraction 18.7 % (1.1-6.1); Monocytes # (M) 0.95 X 10*3/uL (0.20-1.00); Myelocytes % 2 % (0-0); Neutrophils # (M) 15.13 X 10*3/uL (2.00-8.90); Neutrophils % (M) 80 %; Promyelocytes % 3 % (0-0); RBC Morphology NORMAL
[2021-05-14] MEDS: ONDANSETRON 4 MG/2 ML VIAL IVP PRN ×2 (12:47→19:49)
[2021-05-14] MEDS: ACETAMINOPHEN TAB 325 MG TAB PO PRN (20:27)
--- NOTE | 2021-05-14 23:52 | P.PN ---
Subjective Progress Note Date: 05/13/21 Principal diagnosis: E. coli urinary tract infection and bacteremia Patient is a 46-year female presented to hospital with flank pain nausea and vomiting this patient has been diagnosed with the E. coli ureteric infection/pyonephritis with secondary bacteremia. On today's evaluation that is 05/13/2021 the patient fever pattern has improved, the patient did have some nausea but no vomiting , the patient right flank pain has decreased intensity no chest pain shortness of breath or cough no diarrhea Objective - Vital Signs Vital signs: Vital Signs Temp 99.4 F 05/13/21 07:52 Pulse 87 05/13/21 07:52 Resp 16 05/13/21 07:52 BP 106/68 05/13/21 07:52 Pulse Ox 96 05/13/21 07:52 Intake & Output 05/12/21 05/13/21 05/13/21 18:59 06:59 18:59 Intake Total 240 Balance 240 Intake: Oral 240 Other: Voiding Method Toilet External Catheter # Voids 0 2 - Exam GENERAL DESCRIPTION: Middle-aged female lying in bed, no distress. No tachypnea or accessory muscle of respiration use. LUNGS: Unlabored breathing. Clear to auscultation anteriorly. No wheeze or crackle. HEART: S1, S2, regular rate and rhythm. No loud murmur ABDOMEN: Soft, no tenderness , guarding or rigidity, no organomegaly EXTREMITIES: No edema of feet. - Labs CBC & Chem 7: 05/14/21 06:16 05/14/21 06:16 Labs: Abnormal Lab Results - Last 24 Hours (Table) 05/12/21 05/12/21 05/13/21 Range/Units 07:36 07:36 06:41 WBC 15.34 H (4.50-10.00) X 10*3/uL RBC 3.53 L (4.10-5.20) X 10*6/uL Hgb 10.6 L (12.0-15.0) g/dL Hct 33.0 L (37.2-46.3) % Plt Count 97 L (140-440) X 10*3/uL Plt Count Comment DECREASED A MPV 12.8 H (9.5-12.2) fL Immature Gran # 0.21 H (0.00-0.04) X 10*3/uL Neutrophils # 12.46 H (1.80-7.70) X 10*3/uL Monocytes # 1.60 H (0.20-1.00) X 10*3/uL Eosinophils # 0.02 L (0.04-0.35) X 10*3/uL Immature Plt Fraction 15.8 H (1.1-6.1) % Sodium 134 L (135-145) mmol/L Potassium 3.4 L (3.5-5.5) mmol/L Carbon Dioxide 19.6 L (20.0-27.5) mmol/L Anion Gap 9.40 L 9.20 L (10.00-18.00) mmol/L BUN 31.0 H (9.0-27.0) mg/dL Creatinine 1.7 H (0.6-1.5) mg/dL Est GFR (CKD-EPI)AfAm 41.8 L (60.0-200.0) Est GFR (CKD-EPI)NonAf 36.0 L 54.9 L (60.0-200.0) Calcium 8.0 L 7.7 L (8.7-10.3) mg/dL Alkaline Phosphatase 204 H (41-126) U/L Total Protein 5.1 L (6.2-8.2) g/dL Albumin 2.7 L (3.8-4.9) g/dL Albumin/Globulin Ratio 1.13 L (1.60-3.17) g/dL Microbiology - Last 24 Hours (Table) 05/10/21 19:02 Blood Culture - Preliminary Blood No Growth after 48 hours 05/10/21 16:16 Urine Culture - Final Urine,Voided Escherichia coli 05/10/21 18:45 Blood Culture Gram Stain - Preliminary Blood Blood Culture - Preliminary Escherichia coli Assessment and Plan (1) Pyelonephritis Current Visit: Yes Status: Acute Code(s): N12 - TUBULO-INTERSTITIAL NEPHR ITIS, NOT SPCF ACUTE OR CHRONIC SNOMED Code(s): 13555071 Plan: 1patient presented to hospital with sepsis in this patient did have a fever elevated white count tachycardia with evidence of gram-negative bacteremia source is urinary and right-sided pyelonephritis with no evidence of any hydronephrosis or structural abnormality on the ultrasound 2Patient blood culture has been finalized with E. coli that is sensitive to Rocephin patient to continue with Rocephin 2 g daily Time with Patient: Less than 30
--- NOTE | 2021-05-14 23:55 | P.PN ---
Subjective Progress Note Date: 05/14/21 Principal diagnosis: E. coli urinary tract infection and bacteremia Patient is a 46-year female presented to hospital with flank pain nausea and vomiting this patient has been diagnosed with the E. coli ureteric infection/pyonephritis with secondary bacteremia. On today's evaluation that is 05/14/2021 the patient did have a low-grade fever of 99.9F, the patient denies further vomiting , the patient right flank pain has decreased intensity no chest pain shortness of breath or cough no diarrhea Objective - Vital Signs Vital signs: Vital Signs Temp 98.8 F 05/14/21 11:35 Pulse 90 05/14/21 11:35 Resp 16 05/14/21 11:35 BP 113/68 05/14/21 11:35 Pulse Ox 98 05/14/21 11:35 Intake & Output 05/13/21 05/14/21 05/14/21 18:59 06:59 18:59 Intake Total 300 Balance 300 Intake: Intake, IV Titration 300 Amount Sodium Chloride 0.9% 1, 300 000 ml @ 75 mls/hr IV . [id number] [facility] Rx#:[id number] Other: Voiding Method External Catheter External Catheter # Voids 1 1 - Exam GENERAL DESCRIPTION: Middle-aged female lying in bed, no distress. No tachypnea or accessory muscle of respiration use. LUNGS: Unlabored breathing. Clear to auscultation anteriorly. No wheeze or crackle. HEART: S1, S2, regular rate and rhythm. No loud murmur ABDOMEN: Soft, no tenderness , guarding or rigidity, no organomegaly EXTREMITIES: No edema of feet. - Labs CBC & Chem 7: 05/14/21 06:16 05/14/21 06:16 Labs: Abnormal Lab Results - Last 24 Hours (Table) 05/14/21 05/14/21 Range/Units 06:16 06:16 WBC 18.91 H (4.50-10.00) X 10*3/uL RBC 4.02 L (4.10-5.20) X 10*6/uL MCHC 31.5 L (32.0-37.0) g/dL Plt Count 102 L (140-440) X 10*3/uL Plt Count Comment DECREASED A Myelocytes % 2 H (0-0) % Promyelocytes % 3 H (0-0) % Neutrophils # (Manual) 15.13 H (2.00-8.90) X 10*3/uL Eosinophils # (Manual) 0 L (0.04-0.35) X 10*3/uL Basophils # (Manual) 0.19 H (0.00-0.10) X 10*3/uL Immature Plt Fraction 18.7 H (1.1-6.1) % Carbon Dioxide 19.1 L (20.0-27.5) mmol/L Calcium 8.0 L (8.7-10.3) mg/dL Microbiology - Last 24 Hours (Table) 05/10/21 19:02 Blood Culture - Preliminary Blood No Growth after 72 hours 05/10/21 18:45 Blood Culture Gram Stain - Final Blood Blood Culture - Final Escherichia coli Assessment and Plan (1) Pyelonephritis Current Visit: Yes Status: Acute Code(s): N12 - TUBULO-INTERSTITIAL NEP HRITIS, NOT SPCF ACUTE OR CHRONIC SNOMED Code(s): 45342029 Plan: 1patient presented to hospital with sepsis in this patient did have a fever elevated white count tachycardia with evidence of gram-negative bacteremia source is urinary and right-sided pyelonephritis with no evidence of any hydronephrosis or structural abnormality on the ultrasound 2Patient blood culture has been finalized with E. coli that is sensitive pathogen, patient to continue with the Rocephin however in view of slight worsening of the white count cultures will be repeated
[2021-05-15] MEDS: LACTATED RINGERS 1,000 ML IV SCH ×3 (00:02→23:58)
[2021-05-15] MEDS: HEPARIN SODIUM,PORCINE/PF 5,000 UNIT/0.5 ML SYRINGE SQ SCH ×4 (00:02→23:57)
--- NOTE | 2021-05-15 00:49 | P.PN ---
Subjective Progress Note Date: 05/14/21 Patient is a 46-year-old female with a known history of medullary sponge kidney, history of pyelonephritis, nephrolithiasis and currently everyday smoker presents to ER with complaints of intractable nausea and vomiting for the past 4 days. Patient is unable to keep down food and was having generalized body aches and fever/chills. Patient also complaining of bilateral flank pain lower back pain worsens with movement. Denied any numbness or tingling in the hands. No chest pain or shortness of breath. Denied any dysuria or hematuria. No cough or sputum production. Denies any recent illnesses. Patient presents to ER due to worsening symptoms. Patient had ultrasound abdomen showed 5 mm hyperechoic focus in the upper pole of the right kidney is probable lipoma. No gallstones or dilated ducts. Hepatomegaly. Lumbar spine x-ray showed negative lumbar spine exam. No fractures. CT of the abdomen pelvis showed significant right renal swelling without any significant hydronephrosis. This is consistent with acute pyelonephritis and did a change compared to the old exam. Laboratory data showed WBC 20.4 hemoglobin 13.0 and platelets 115 sodium 137 potassium 3.7 chloride 104 bicarb is 18 BUN 48 and creatinine 3.36 Urinalysis showed turbid with 3+ protein moderate blood nitrite negative and liver large leukocyte esterase elevated RBCs and WBCs COVID-19 PCR not detected. 05/12/2021 Patient is currently resting in bed. Awake alert and oriented. Feels weak and also complaining of nausea but improved compared to yesterday. No complaints of chest pain or shortness breath. Patient has been febrile overnight. Continued on antibiotics in the form of ceftriaxone 2 g daily. Blood cultures growing E. coli and urine culture showed gram-negative bacilli. Laboratory showed WBC trending down to 15.3 hemoglobin 10.6 and platelets 97 Sodium 134 potassium 3.4 chloride 105 BUN 31 and creatinine improved to 1.7 calcium 8.0 ID and nephrology is on board. 05/13/2021 Patient is currently resting in the bed. Feels weak. Otherwise nausea did improve and able to tolerate oral diet and will be advanced to regular. No complaints of abdominal pain. No nausea or vomiting or diarrhea. Patient has fever with T-max 102.7. Currently being continued ceftriaxone 2 g daily. Blood cultures grew E. coli and is pansensitive. Laboratory showed renal function improved with creatinine level 1.2, BUN 17.9 potassium 3.6. 05/14/2021 Patient is seen and evaluated this morning and is continued on IV antibiotics with ID and nephrology following. Patient continues to have fevers and WBC is trending upwards. Initial cultures came back with ecoli and blood cultures were positive for ecoli and repeat was negative. Repeat cultures ordered and pending. Procalcitonin ordered for am as well. Patient reports to continued flank pain on the right and also reports to mostly sleeping and has not been eating much. Patient maintained on IV NS and being transitioned to LR @ 75ml/hour. Encouraged oral intake and increased activity as tolerated. Patient denies chest pain or shortness of breath. Active Medications Acetaminophen (Acetaminophen Tab 325 Mg Tab) 650 mg PO Q6HR PRN PRN Reason: Mild Pain or Fever > 100.5 Last Admin: 05/14/21 20:27 Dose: 650 mg Documented by: Hydrocodone Bitart/Acetaminophen (Hydrocodone/Apap 7.5-325mg 1 Each Tab) 1 each PO Q6HR PRN PRN Reason: Pain Last Admin: 05/14/21 19:49 Dose: 1 each Documented by: Famotidine (Famotidine 20 Mg Tab) 20 mg PO BID [facility] Last Admin: 05/14/21 19:49 Dose: 20 mg Documented by: Heparin Sodium (Porcine) (Heparin Sodium,Porcine/Pf 5,000 Unit/0.5 Ml Syringe) 5,000 unit SQ Q8HR [facility] Last Admin: 05/15/21 00:02 Dose: 5,000 unit Documented by: Ceftriaxone Sodium 2 gm/ (Sodium Chloride) 50 mls @ 100 mls/hr IVPB HS [facility] Last Admin: 05/14/21 20:27 Dose: 100 mls/hr Documented by: Lactated Ringer's (Lactated Ringers) 1,000 mls @ 75 mls/hr IV .[id number] [facility] Last Admin: 05/15/21 00:02 Dose: 75 mls/hr Documented by: Miscellaneous Information (Potassium Replacement Protocol 1 Each Misc) 1 each MISCELLANE DAILY PRN; Protocol PRN Reason: Per Protocol Naloxone HCl (Naloxone 0.4 Mg/Ml 1 Ml Vial) 0.2 mg IV Q2M PRN PRN Reason: Opioid Reversal Ondansetron HCl (Ondansetron 4 Mg/2 Ml Vial) 4 mg IVP Q8HR PRN PRN Reason: Nausea And Vomiting Last Admin: 05/14/21 19:49 Dose: 4 mg Documented by: Prochlorperazine Maleate (Prochlorperazine 5 Mg Tab) 5 mg PO Q8HR PRN PRN Reason: Nausea And Vomiting Last Admin: 05/11/21 03:06 Dose: 5 mg Documented by: PHYSICAL EXAMINATION: Patient is lying in the bed comfortably, asleep, but arousable, no acute distress HEENT: Normocephalic. Neck is supple. Pupils reactive. Nostrils clear. Oral cavity is moist. Neck reveals no JVD, carotid bruits, or thyromegaly. CHEST EXAMINATION: Trachea is central. Symmetrical expansion. Lung leger clear to auscultation and percussion. CARDIAC: Normal S1, S2 with no gallops. No murmurs ABDOMEN: Soft. Bowel sounds normal. No organomegaly. No abdominal bruits. Right flank tenderness Extremities: reveal no edema. No clubbing or cyanosis Neurologically asleep but arousable, alert, oriented x3 with well-coordinated movements. No focal deficits noted Skin: No rash or skin lesions. Psychiatric: Cooperative. Non-suicidal Musculoskeletal: No joint swelling or deformity. Normal range of motion. Assessment: Acute pyelonephritis E. coli bacteremia likely source from the UTI. Repeat cultures pending Severe sepsis secondary to above Intractable nausea and vomiting Acute kidney injury Likely prerenal. possible ATN due to infection/ hypotension. Creatinine level 3.36 on admission and baseline creatinine is 0.65, currently 1.0 Medullary sponge kidney Hypokalemia, improved History of renal stones DVT prophylaxis full code Plan: Patient will be continued on antibiotics IV ceftriaxone and final urine culture reports and blood cultures show ecoli with sensitivity. ID following and procal citonin, CRP, repeat blood cultures ordered as patient continues with fevers and WBC count trending up. Renal ultrasound showed no gallstones or dilated ducts. Continue with IV hydration and nephrology and ID is on board. IV fluids being changed to lactated ringers per nephrology. Replace electrolytes and symptomatic management for nausea and vomiting. GI and DVT prophylaxis. Encouraged oral int grace and increased activity as tolerated. Patient reports to mostly sleeping and not having much energy or appetite. Continue to monitor closely. The impression and plan of care has been dictated by Kellie Guevara, nurse practitioner as directed. MD Karoline I have performed a history and examination and MDM of this patient, discussed the same with the dictator, and agree with the dictator's assessment and plan as written ,documented as a scribe. Based on total visit time, I have performed more than 50% of the visit. Number of minutes spent on the visit, 10 minutes. Any additional findings or plans will be noted. Objective - Vital Signs Vital signs: Vital Signs Temp 99.7 F H 05/14/21 04:32 Pulse 82 05/14/21 04:32 Resp 16 05/14/21 04:32 BP 112/70 05/14/21 04:32 Pulse Ox 98 05/14/21 04:32 Intake & Output 05/13/21 05/14/21 05/14/21 18:59 06:59 18:59 Intake Total 300 Balance 300 Intake: Intake, IV Titration 300 Amount Sodium Chloride 0.9% 1, 300 000 ml @ 75 mls/hr IV . [id number] [facility] Rx#:[id number] Other: Voiding Method External Catheter External Catheter # Voids 1 1 - Labs CBC & Chem 7: 05/14/21 06:16 05/14/21 06:16 Labs: Abnormal Lab Results - Last 24 Hours (Table) 05/13/21 Range/Units 06:41 Anion Gap 9.20 L (10.00-18.00) mmol/L Est GFR (CKD-EPI)NonAf 54.9 L (60.0-200.0) Calcium 7.7 L (8.7-10.3) mg/dL Microbiology - Last 24 Hours (Table) 05/10/21 19:02 Blood Culture - Preliminary Blood No Growth after 72 hours 05/10/21 18:45 Blood Culture Gram Stain - Final Blood Blood Culture - Final Escherichia coli
[2021-05-15] MEDS: HYDROcodone/APAP 7.5-325MG 1 EACH TAB PO PRN ×4 (03:59→23:58)
[2021-05-15] MEDS: ONDANSETRON 4 MG/2 ML VIAL IVP PRN ×3 (04:18→20:00)
[2021-05-15] MEDS: ACETAMINOPHEN TAB 325 MG TAB PO PRN ×3 (05:31→21:44)
[2021-05-15] MEDS: FAMOTIDINE 20 MG TAB PO SCH ×2 (08:45→21:44)
[2021-05-15 10:23] LABS: African American GFR (CKD) 101.6 (60.0-200.0); Anion Gap 11.7 mmol/L (10.00-18.00); BUN/Creat Ratio 9.87 Ratio (12.00-20.00); C Reactive Protein 20.5 mg/dL (0.00-0.80); Calcium 7.5 mg/dL (8.7-10.3); Carbon Dioxide 20.6 mmol/L (20.0-27.5); Magnesium 1.6 mg/dL (1.5-2.4); Non-African American GFR(CKD) 87.7 (60.0-200.0); Potassium 3.5 mmol/L (3.5-5.5)
[2021-05-15] MEDS ORDERED: POTASSIUM CHLORIDE ER 20 MEQ TAB.ER PO STA (11:00)
--- NOTE | 2021-05-15 11:01 | P.PN ---
Subjective Patient is seen in follow-up for acute kidney injury. Renal function continues to improve. Still vomiting. Good urine output. Dysuria improved. Vital signs are stable. General: The patient appeared well nourished and normally developed. HEENT: Head exam is unremarkable. LUNGS: Breath sounds decreased. HEART: Rate and Rhythm are regular. ABDOMEN: Soft, generalized tenderness. EXTREMITITES: No edema. Objective - Vital Signs Vital signs: Vital Signs Temp 100.5 F H 05/15/21 06:14 Pulse 106 H 05/15/21 04:03 Resp 18 05/15/21 04:03 BP 138/79 05/15/21 04:03 Pulse Ox 96 05/15/21 04:03 Intake & Output 05/14/21 05/15/21 05/15/21 18:59 06:59 18:59 Intake Total 800 1550 Balance 800 1550 Intake: Intake, IV Titration 950 Amount Lactated Ringers 1,000 ml 900 @ 75 mls/hr IV .[id number] [facility] Rx#:[id number] cefTRIAXone 2 gm In 50 Sodium Chloride 0.9% 50 ml @ 100 mls/hr IVPB HS [facility] Rx#:[id number] Oral 800 600 Other: Voiding Method Toilet Toilet # Voids 3 4 - Labs CBC & Chem 7: 05/14/21 06:16 05/15/21 06:15 Labs: Abnormal Lab Results - Last 24 Hours (Table) 05/14/21 05/15/21 05/15/21 Range/Units 06:16 06:15 06:15 WBC 18.91 H (4.50-10.00) X 10*3/uL RBC 4.02 L (4.10-5.20) X 10*6/uL MCHC 31.5 L (32.0-37.0) g/dL Plt Count 102 L (140-440) X 10*3/uL Plt Count Comment DECREASED A Myelocytes % 2 H (0-0) % Promyelocytes % 3 H (0-0) % Neutrophils # (Manual) 15.13 H (2.00-8.90) X 10*3/uL Eosinophils # (Manual) 0 L (0.04-0.35) X 10*3/uL Basophils # (Manual) 0.19 H (0.00-0.10) X 10*3/uL Immature Plt Fraction 18.7 H (1.1-6.1) % BUN 8.0 L (9.0-27.0) mg/dL BUN/Creatinine Ratio 9.87 L (12.00-20.00) Ratio Glucose 121 H (70-110) mg/dL Calcium 7.5 L (8.7-10.3) mg/dL C-Reactive Protein 20.50 H (0.00-0.80) mg/dL Procalcitonin 1.07 H (0.02-0.09) ng/mL Microbiology - Last 24 Hours (Table) 05/10/21 19:02 Blood Culture - Preliminary Blood No Growth after 96 hours Assessment and Plan Plan: Assessment: 1. Acute kidney injury mostly prerenal secondary to hypovolemia from vomiting and infection. Improving with IV hydration. Creatinine was 3.36 on admission and 0.8 today. Creatinine in September 2019 was 0.65. No hydronephrosis noted on ultrasound. 2. E. coli UTI and bacteremia. CAT scan suggestive of pyelonephritis. No hydronephrosis. On antibiotics. 3. Hypokalemia from poor intake. Improved. 4. Severe sepsis secondary to pyelonephritis. She tested negative for cor onavirus. 5. Metabolic acidosis secondary to acute kidney injury. Stable. On po bicarb. 6. Questionable history of medullary sponge kidney. She does have history of kidney stones and last passed a kidney stone 2 years ago. CAT scan done this admission showed no kidney stones. Also no evidence of nephrocalcinosis was mentioned on CAT scan done this admission. Plan: Maintain LR. Continue to monitor renal function and urine output. Replace potassium and magnesium.
[2021-05-15] MEDS: SODIUM BICARBONATE TAB 650 MG TAB PO SCH ×2 (12:09→21:44)
[2021-05-15] MEDS: MAGNESIUM SULFATE-D5W PMX 1 GM in DEXTROSE/WATER 1 100ML.BAG IVPB SCH ×2 (12:10→13:25)
[2021-05-15] MEDS: CIPROFLOXACIN HCL 500 MG TAB PO SCH ×2 (15:06→21:44)
[2021-05-15] MEDS ORDERED: IOPAMIDOL CONTRAST (ORAL USE) VIAL PO PRN (15:54)
--- NOTE | 2021-05-15 15:54 | P.PN ---
Subjective Progress Note Date: 05/15/21 Principal diagnosis: E. coli urinary tract infection and bacteremia Patient is a 46-year female presented to hospital with flank pain nausea and vomiting this patient has been diagnosed with the E. coli ureteric infection/pyonephritis with secondary bacteremia. On today's evaluation that is 05/15/2021 the patient has been spiking a fever of the last 24 hours, patient overall is feeling better the patient right sided flank pain has improved no chest pain shortness of breath or cough no nausea no vomiting and no diarrhea Objective - Vital Signs Vital signs: Vital Signs Temp 98.6 F 05/15/21 13:00 Pulse 88 05/15/21 13:00 Resp 18 05/15/21 13:00 BP 110/68 05/15/21 13:00 Pulse Ox 99 05/15/21 13:00 Intake & Output 05/14/21 05/15/21 05/15/21 18:59 06:59 18:59 Intake Total 800 1550 Balance 800 1550 Intake: Intake, IV Titration 950 Amount Lactated Ringers 1,000 ml 900 @ 75 mls/hr IV .[id number] [facility] Rx#:[id number] cefTRIAXone 2 gm In 50 Sodium Chloride 0.9% 50 ml @ 100 mls/hr IVPB HS [facility] Rx#:[id number] Oral 800 600 Other: Voiding Method Toilet Toilet # Voids 3 4 - Exam GENERAL DESCRIPTION: Middle-aged female lying in bed, no distress. No tachypnea or accessory muscle of respiration use. LUNGS: Unlabored breathing. Clear to auscultation anteriorly. No wheeze or crackle. HEART: S1, S2, regular rate and rhythm. No loud murmur ABDOMEN: Soft, no tenderness , guarding or rigidity, no organomegaly EXTREMITIES: No edema of feet. - Labs CBC & Chem 7: 05/14/21 06:16 05/15/21 06:15 Labs: Abnormal Lab Results - Last 24 Hours (Table) 05/15/21 05/15/21 Range/Units 06:15 06:15 BUN 8.0 L (9.0-27.0) mg/dL BUN/Creatinine Ratio 9.87 L (12.00-20.00) Ratio Glucose 121 H (70-110) mg/dL Calcium 7.5 L (8.7-10.3) mg/dL C-Reactive Protein 20.50 H (0.00-0.80) mg/dL Procalcitonin 1.07 H (0.02-0.09) ng/mL Microbiology - Last 24 Hours (Table) 05/10/21 19:02 Blood Culture - Preliminary Blood No Growth after 96 hours Assessment and Plan (1) Pyelonephritis Current Visit: Yes Status: Acute Code(s): N12 - TUBULO-INTERSTITIAL NEPHRITIS, NOT SPCF ACUTE OR CHRONIC SNOMED Code(s): 15487765 Plan: 1patient presented to hospital with sepsis in this patient did have a fever elevated white count tachycardia with evidence of gram-negative bacteremia source is urinary and right-sided pyelonephritis with no evidence of any hydronephrosis or structural abnormality on the ultrasound 2Patient blood culture has been finalized with E. coli that is sensitive pathogen, in view of the persistent fever we will repeat CT of the abdominal pel vis with oral contrast only to [place] no evidence of any abscess formation that may need to be drained he will continue the patient on Rocephin however and oral Cipro with consideration for possible emphysematous pyelonephritis Time with Patient: Less than 30
--- NOTE | 2021-05-15 21:49 | CT ---
EXAMINATION TYPE: CT abdomen pelvis wo con DATE OF EXAM: 05/15/2021 COMPARISON: 05/10/2021 HISTORY: fever, nausea, vomiting CT DLP: 550.9 mGycm Automated exposure control for dose reduction was used. Images obtained from the diaphragm to the floor the pelvis without contrast. There is right pleural effusion. There is some mild atelectasis at the lung bases. Heart size is norm al. There is no pericardial effusion. Liver spleen pancreas appear intact. The bile ducts are not dilated. There is mildly dilated gallblad noa measuring 5.2 cm in diameter. There is enlarged right kidney with some mild perinephric edema. There is mild right-sided periureter al edema. Bladder distends smoothly. I see no definite ureteral calculus. There is no retroperitoneal adenopathy. There is small amount of free fluid in the pelvis. Uterus is anteverted. Bladder distend s smoothly. Lumbar vertebrae have normal alignment. Posterior elements are intact. There is no compre ssion fracture. Bony pelvis is intact. The hip joints are intact. IMPRESSION: Significant right renal swelling slightly increased compared to last exam and could relate to pyelone phritis. No significant hydronephrosis. Periureteral edema. There is small amount of low-density free fluid in the pelvis which is new compared to old exam. Dilated gallbladder increased in size compared to last exam and consistent with cholecystitis.
[2021-05-15] MEDS: PROCHLORPERAZINE 5 MG TAB PO PRN (23:57)
[2021-05-16] MEDS: HYDROcodone/APAP 7.5-325MG 1 EACH TAB PO PRN ×3 (05:59→19:44)
[2021-05-16] MEDS: HEPARIN SODIUM,PORCINE/PF 5,000 UNIT/0.5 ML SYRINGE SQ SCH ×3 (09:43→23:39)
[2021-05-16] MEDS: CIPROFLOXACIN HCL 500 MG TAB PO SCH ×2 (09:43→20:06)
[2021-05-16] MEDS: FAMOTIDINE 20 MG TAB PO SCH ×2 (09:43→19:44)
[2021-05-16] MEDS: SODIUM BICARBONATE TAB 650 MG TAB PO SCH ×2 (09:43→20:06)
--- NOTE | 2021-05-16 09:48 | P.PN ---
Subjective Patient is seen in follow-up for acute kidney injury. Renal function continues to improve. Still vomiting. Good urine output. No dysuria or hematuria. Vital signs are stable. General: The patient appeared well nourished and normally developed. HEENT: Head exam is unremarkable. LUNGS: Breath sounds decreased. HEART: Rate and Rhythm are regular. ABDOMEN: Soft, generalized tenderness. EXTREMITITES: No edema. Objective - Vital Signs Vital signs: Vital Signs Temp 99.4 F 05/16/21 05:00 Pulse 91 05/16/21 05:00 Resp 16 05/16/21 05:00 BP 125/70 05/16/21 05:00 Pulse Ox 97 05/16/21 05:00 Intake & Output 05/15/21 05/16/21 05/16/21 18:59 06:59 18:59 Intake Total 1100 1550 Balance 1100 1550 Weight 70.307 kg Intake: Intake, IV Titration 1100 950 Amount Lactated Ringers 1,000 ml 900 900 @ 75 mls/hr IV .[id number] [facility] Rx#:[id number] Magnesium Sulfate-D5w Pmx 200 1 gm In Dextrose/Water 1 100ml.bag @ 100 mls/hr IVPB Q1H [facility] Rx#: [id number] cefTRIAXone 2 gm In 50 Sodium Chloride 0.9% 50 ml @ 100 mls/hr IVPB HS [facility] Rx#:[id number] Oral 600 Other: Voiding Method Toilet Toilet # Voids 3 - Labs CBC & Chem 7: 05/14/21 06:16 05/15/21 06:15 Labs: Abnormal Lab Results - Last 24 Hours (Table) 05/15/21 Range/Units 06:15 BUN 8.0 L (9.0-27.0) mg/dL BUN/Creatinine Ratio 9.87 L (12.00-20.00) Ratio Glucose 121 H (70-110) mg/dL Calcium 7.5 L (8.7-10.3) mg/dL C-Reactive Protein 20.50 H (0.00-0.80) mg/dL Microbiology - Last 24 Hours (Table) 05/15/21 06:15 Blood Culture - Preliminary Blood No Growth after 24 hours 05/10/21 19:02 Blood Culture - Preliminary Blood No Growth after 120 hours Assessment and Plan Plan: Assessment: 1. Acute kidney injury mostly prerenal secondary to hypovolemia from vomiting and infection. Improving with IV hydration. Creatinine was 3.36 on admission and 0.8 yesterday. Creatinine in September 2019 was 0.65. No hydronephrosis noted on ultrasound. 2. E. coli UTI and bacteremia. CAT scan suggestive of pyelonephritis. No hydronephrosis. On antibiotics. 3. Hypokalemia from poor intake. Replaced. 4. Severe sepsis secondary to pyelonephritis. She tested negative for coronavirus. 5. Metabolic acidosis secondary to acute kidney injury. Stable. On po bicarb. 6. Questionable history of medullary sponge kidney. She does have history of kidney stones and last passed a kidney stone 2 years ago. CAT scan done this admission showed no kidney stones. Also no evidence of nephrocalcinosis was mentioned on CAT scan done this admission. Plan: Maintain LR. Continue to monitor renal function and urine output. Morning labs pending.
[2021-05-16 11:54] LABS: African American GFR (CKD) 103.9 (60.0-200.0); BUN/Creat Ratio 7.13 Ratio (12.00-20.00); Blood Urea Nitrogen 5.7 mg/dL (9.0-27.0); Calcium 7.6 mg/dL (8.7-10.3); Magnesium 1.8 mg/dL (1.5-2.4); Non-African American GFR(CKD) 89.7 (60.0-200.0); Potassium 4.3 mmol/L (3.5-5.5)
[2021-05-16] MEDS: PROCHLORPERAZINE 5 MG TAB PO PRN ×2 (12:50→20:06)
[2021-05-16] MEDS: ACETAMINOPHEN TAB 325 MG TAB PO PRN (12:54)
[2021-05-16 15:10] LABS: HCT 36.9 % (34.0-46.0); HGB 11.4 gm/dL (11.4-16.0); Hypochromasia Marked; MCH 31.6 pg (25.0-35.0); MCHC 30.9 g/dL (31.0-37.0); Macrocytosis Slight; Mean Platelet Volume 11.5; RBC 3.61 m/uL (3.80-5.40); RDW 13.2 % (11.5-15.5); WBC 15.8 k/uL (3.8-10.6)
[2021-05-16 15:31] LABS: MCV 102.4 fL (80.0-100.0)
[2021-05-16] MEDS: LACTATED RINGERS 1,000 ML IV SCH (15:44)
[2021-05-16 16:43] LABS: Lymphocytes # (M) 2.21 k/uL (1.0-4.8); Metamyelocytes # (M) 0.32 k/uL (0); Metamyelocytes % 2 %; Monocytes # (M) 0.63 k/uL (0-1.0); Myelocytes # (M) 0.47 k/uL (0); Myelocytes % 3 %; Neutrophils # (M) 12.17 k/uL (1.3-7.7); Neutrophils % (M) 77 %; Nucleated Red Blood Cells 0 /100 WBC (0-0); Total Cells Counted 100
[2021-05-16 16:44] LABS: Polychromasia Present
[2021-05-16 16:45] LABS: Platelet Count 262 k/uL (150-450)
[2021-05-16] MEDS: AMPICILLIN-SULBACTAM 3 GM in SODIUM CHLORIDE 0.9% 100 ML IVPB SCH ×2 (17:41→23:40)
--- NOTE | 2021-05-17 00:23 | P.PN ---
Subjective Progress Note Date: 05/16/21 Principal diagnosis: E. coli urinary tract infection and bacteremia Patient is a 46-year female presented to hospital with flank pain nausea and vomiting this patient has been diagnosed with the E. coli ureteric infection/pyonephritis with secondary bacteremia. On today's evaluation that is 05/16/2021 the patient continues to be spiking a fever of the last 24 hours, patient has been complaining of more pain into the epigastric area since yesterday some nausea but no vomiting no chest pain shortness of breath or cough and no diarrhea Objective - Vital Signs Vital signs: Vital Signs Temp 102.0 F H 05/16/21 12:47 Pulse 48 L 05/16/21 12:47 Resp 18 05/16/21 12:47 BP 127/78 05/16/21 12:47 Pulse Ox 91 L 05/16/21 12:47 Intake & Output 05/15/21 05/16/21 05/16/21 18:59 06:59 18:59 Intake Total 1100 1550 Balance 1100 1550 Weight 70.307 kg Intake: Intake, IV Titration 1100 950 Amount Lactated Ringers 1,000 ml 900 900 @ 75 mls/hr IV .[id number] [facility] Rx#:[id number] Magnesium Sulfate-D5w Pmx 200 1 gm In Dextrose/Water 1 100ml.bag @ 100 mls/hr IVPB Q1H [facility] Rx#: [id number] cefTRIAXone 2 gm In 50 Sodium Chloride 0.9% 50 ml @ 100 mls/hr IVPB HS [facility] Rx#:[id number] Oral 600 Other: Voiding Method Toilet Toilet # Voids 3 - Exam GENERAL DESCRIPTION: Middle-aged female lying in bed, no distress. No tachypnea or accessory muscle of respiration use. LUNGS: Unlabored breathing. Clear to auscultation anteriorly. No wheeze or crackle. HEART: S1, S2, regular rate and rhythm. No loud murmur ABDOMEN: Soft, no tenderness , guarding or rigidity, no organomegaly EXTREMITIES: No edema of feet. - Labs CBC & Chem 7: 05/16/21 06:14 05/16/21 06:14 Labs: Abnormal Lab Results - Last 24 Hours (Table) 05/16/21 Range/Units 06:14 BUN 5.7 L (9.0-27.0) mg/dL BUN/Creatinine Ratio 7.13 L (12.00-20.00) Ratio Calcium 7.6 L (8.7-10.3) mg/dL Microbiology - Last 24 Hours (Table) 05/15/21 06:15 Blood Culture - Preliminary Blood No Growth after 24 hours 05/10/21 19:02 Blood Culture - Preliminary Blood No Growth after 120 hours Assessment and Plan (1) Pyelonephritis Current Visit: Yes Status: Acute Code(s): N12 - TUBULO-INTERSTITIAL NEPHRITIS, NOT SPCF ACUTE OR CHRONIC SNOMED Code(s): 39793073 Plan: 1patient presented to hospital with sepsis in this patient did have a fever elevated white count tachycardia with evidence of gram-negative bacteremia source is urinary and right-sided pyelonephritis with no evidence of any hydronephrosis or structural abnormality on the ultrasound, patient repeat CT did show significant swelling of the right kidney and concern for possible cholecystitis 2Patient antibiotic will be switched over to Unasyn in view of persistent fever could be related to emphysematous pyelonephritis, versus cholecystitis for which general surgery has been consulted Time with Patient: Less than 30
[2021-05-17] MEDS: HYDROcodone/APAP 7.5-325MG 1 EACH TAB PO PRN ×4 (01:48→21:10)
[2021-05-17] MEDS: PROCHLORPERAZINE 5 MG TAB PO PRN ×2 (04:02→18:06)
[2021-05-17] MEDS: LACTATED RINGERS 1,000 ML IV SCH ×2 (04:03→18:26)
[2021-05-17] MEDS: AMPICILLIN-SULBACTAM 3 GM in SODIUM CHLORIDE 0.9% 100 ML IVPB SCH ×4 (05:24→23:50)
[2021-05-17] MEDS: ACETAMINOPHEN TAB 325 MG TAB PO PRN ×2 (05:31→18:25)
[2021-05-17] MEDS: FAMOTIDINE 20 MG TAB PO SCH ×2 (08:04→21:10)
[2021-05-17] MEDS: CIPROFLOXACIN HCL 500 MG TAB PO SCH ×2 (08:04→21:10)
[2021-05-17] MEDS: SODIUM BICARBONATE TAB 650 MG TAB PO SCH (08:04)
[2021-05-17] MEDS: HEPARIN SODIUM,PORCINE/PF 5,000 UNIT/0.5 ML SYRINGE SQ SCH ×3 (08:04→23:51)
[2021-05-17 08:41] LABS: HCT 28.5 % (37.2-46.3); MCH 29.7 pg (27.0-32.0); MCHC 31.6 g/dL (32.0-37.0); MCV 94.1 fL (80.0-97.0); Mean Platelet Volume 11.1 fL (9.5-12.2); NRBC Per 100 WBC 0 /100 WBCS (0.0-0.0); Platelet Count 259 X 10*3/uL (140-440); RBC 3.03 X 10*6/uL (4.10-5.20); RDW 13.4 % (11.5-14.5)
[2021-05-17 08:49] LABS: African American GFR (CKD) 124.8 (60.0-200.0); BUN/Creat Ratio 7.5 Ratio (12.00-20.00); Blood Urea Nitrogen 4.9 mg/dL (9.0-27.0); Calcium 7.4 mg/dL (8.7-10.3); Carbon Dioxide 24.5 mmol/L (20.0-27.5); Magnesium 1.6 mg/dL (1.5-2.4); Non-African American GFR(CKD) 107.7 (60.0-200.0); Potassium 3.8 mmol/L (3.5-5.5)
[2021-05-17 09:28] LABS: Basophils # (M) 0 X 10*3/uL (0.00-0.10); Eosinophils # (M) 0.53 X 10*3/uL (0.04-0.35); Lymphocytes # (M) 1.24 X 10*3/uL (0.90-5.00); Metamyelocytes % 1 % (0-0); Monocytes # (M) 0.71 X 10*3/uL (0.20-1.00); Myelocytes % 1 % (0-0); Neutrophils # (M) 14.87 X 10*3/uL (2.00-8.90); Neutrophils % (M) 84 %
--- NOTE | 2021-05-17 09:44 | P.PN ---
Subjective Patient is seen in follow-up for acute kidney injury. Renal function back to baseline. No vomiting yesterday. Good urine output. No dysuria or hematuria. Vital signs are stable. General: The patient appeared well nourished and normally developed. HEENT: Head exam is unremarkable. LUNGS: Breath sounds decreased. HEART: Rate and Rhythm are regular. ABDOMEN: Soft, no distention. EXTREMITITES: No edema. Objective - Vital Signs Vital signs: Vital Signs Temp 98.5 F 05/17/21 04:00 Pulse 82 05/17/21 04:00 Resp 18 05/17/21 04:00 BP 111/71 05/17/21 04:00 Pulse Ox 94 L 05/17/21 04:00 Intake & Output 05/16/21 05/17/21 05/17/21 18:59 06:59 18:59 Intake Total 300 1700 Balance 300 1700 Intake: Intake, IV Titration 300 1100 Amount Ampicillin-Sulbactam 3 gm 200 200 In Sodium Chloride 0.9% 100 ml @ 200 mls/hr IVPB Q6HR [facility] Rx#:[id number] Lactated Ringers 1,000 ml 900 @ 75 mls/hr IV .[id number] [facility] Rx#:[id number] cefTRIAXone 2 gm In 100 Sodium Chloride 0.9% 50 ml @ 100 mls/hr IVPB HS [facility] Rx#:[id number] Oral 600 Other: Voiding Method Toilet Toilet # Voids 5 3 - Labs CBC & Chem 7: 05/17/21 05:54 05/17/21 05:54 Labs: Abnormal Lab Results - Last 24 Hours (Table) 05/16/21 05/16/21 05/17/21 Range/Units 06:14 06:14 05:54 WBC 15.8 H (3.8-10.6) k/uL RBC 3.61 L (3.80-5.40) m/uL Hgb (12.0-15.0) g/dL Hct (37.2-46.3) % MCV 102.4 H D (80.0-100.0) fL MCHC 30.9 L (31.0-37.0) g/dL Metamyelocytes % (0-0) % Myelocytes % (0-0) % Neutrophils # (Manual) 12.17 H (1.3-7.7) k/uL Eosinophils # (Manual) (0.04-0.35) X 10*3/uL Metamyelocytes # (Man) 0.32 H (0) k/uL Myelocytes # (Manual) 0.47 H (0) k/uL BUN 5.7 L 4.9 L (9.0-27.0) mg/dL BUN/Creatinine Ratio 7.13 L 7.50 L (12.00-20.00) Ratio Calcium 7.6 L 7.4 L (8.7-10.3) mg/dL 05/17/21 Range/Units 05:54 WBC 17.70 H (3.8-10.6) k/uL RBC 3.03 L (3.80-5.40) m/uL Hgb 9.0 L (12.0-15.0) g/dL Hct 28.5 L (37.2-46.3) % MCV (80.0-100.0) fL MCHC 31.6 L (31.0-37.0) g/dL Metamyelocytes % 1 H (0-0) % Myelocytes % 1 H (0-0) % Neutrophils # (Manual) 14.87 H (1.3-7.7) k/uL Eosinophils # (Manual) 0.53 H (0.04-0.35) X 10*3/uL Metamyelocytes # (Man) (0) k/uL Myelocytes # (Manual) (0) k/uL BUN (9.0-27.0) mg/dL BUN/Creatinine Ratio (12.00-20.00) Ratio Calcium (8.7-10.3) mg/dL Microbiology - Last 24 Hours (Table) 05/15/21 06:15 Blood Culture - Preliminary Blood No Growth after 48 hours 05/10/21 19:02 Blood Culture - Final Blood No Growth after 144 hours Assessment and Plan Plan: Assessment: 1. Acute kidney injury mostly prerenal secondary to hypovolemia from vomiting and infection. Improving with IV hydration. Creatinine was 3.36 on admission and is 0.7 today. Creatinine in September 2019 was 0.65. No hydronephrosis noted on ultrasound. 2. E. coli UTI and bacteremia. CAT scan suggestive of pyelonephritis. No hydronephrosis. On antibiotics. 3. Hypokalemia from poor intake. Replaced. 4. Severe sepsis secondary to pyelonephritis. She tested negative for coronavirus. 5. Metabolic acidosis secondary to acute kidney injury. Improved. 6. Questionable history of medullary sponge kidney. She does have history of kidney stones and last passed a kidney stone 2 years ago. CAT scan done this admission showed no kidney stones. Also no evidence of nephrocalcinosis was mentioned on CAT scan done this admission. Plan: Decrease LR to 50 mL an hour. Add oral magnesium oxide. Stop bicarb. Continue to monitor renal function and urine output. Will see on as-needed basis
--- NOTE | 2021-05-17 11:07 | P.PN ---
Subjective Progress Note Date: 05/15/21 46-year-old female with a known history of medullary sponge kidney, history of pyelonephritis, nephrolithiasis and currently everyday smoker presents to ER with complaints of intractable nausea and vomiting for the past 4 days. Patient is unable to keep down food and was having generalized body aches and fever/chills. Patient also complaining of bilateral flank pain lower back pain worsens with movement. Denied any numbness or tingling in the hands. No chest pain or shortness of breath. Denied any dysuria or hematuria. No cough or sputum production. Denies any recent illnesses. Patient presents to ER due to worsening symptoms. Patient had ultrasound abdomen showed 5 mm hyperechoic focus in the upper pole of the right kidney is probable lipoma. No gallstones or dilated ducts. Hepatomegaly. Lumbar spine x-ray showed negative lumbar spine exam. No fractures. CT of the abdomen pelvis showed significant right renal swelling without any significant hydronephrosis. This is consistent with acute pyelonephritis and did a change compared to the old exam. Laboratory data showed WBC 20.4 hemoglobin 13.0 and platelets 115 sodium 137 potassium 3.7 chloride 104 bicarb is 18 BUN 48 and creatinine 3.36 Urinalysis showed turbid with 3+ protein moderate blood nitrite negative and liver large leukocyte esterase elevated RBCs and WBCs COVID-19 PCR not detected. Objective - Vital Signs Vital signs: Vital Signs Temp 100.5 F H 05/15/21 06:14 Pulse 106 H 05/15/21 04:03 Resp 18 05/15/21 04:03 BP 138/79 05/15/21 04:03 Pulse Ox 96 05/15/21 04:03 Intake & Output 05/14/21 05/15/21 05/15/21 18:59 06:59 18:59 Intake Total 800 1550 Balance 800 1550 Intake: Intake, IV Titration 950 Amount Lactated Ringers 1,000 ml 900 @ 75 mls/hr IV .[id number] [facility] Rx#:[id number] cefTRIAXone 2 gm In 50 Sodium Chloride 0.9% 50 ml @ 100 mls/hr IVPB HS [facility] Rx#:[id number] Oral 800 600 Other: Voiding Method Toilet Toilet # Voids 3 4 - Exam Patient is lying in the bed comfortably, asleep, but arousable, no acute distress HEENT: Normocephalic. Neck is supple. Pupils reactive. Nostrils clear. Oral cavity is moist. Neck reveals no JVD, carotid bruits, or thyromegaly. CHEST EXAMINATION: Trachea is central. Symmetrical expansion. Lung leger clear to auscultation and percussion. CARDIAC: Normal S1, S2 with no gallops. No murmurs ABDOMEN: Soft. Bowel sounds normal. No organomegaly. No abdominal bruits. Right flank tenderness Extremities: reveal no edema. No clubbing or cyanosis Neurologically asleep but arousable, alert, oriented x3 with well-coordinated movements. No focal deficits noted Skin: No rash or skin lesions. - Labs CBC & Chem 7: 05/17/21 05:54 05/17/21 05:54 Labs: Abnormal Lab Results - Last 24 Hours (Table) 05/14/21 05/15/21 05/15/21 Range/Units 06:16 06:15 06:15 WBC 18.91 H (4.50-10.00) X 10*3/uL RBC 4.02 L (4.10-5.20) X 10*6/uL MCHC 31.5 L (32.0-37.0) g/dL Plt Count 102 L (140-440) X 10*3/uL Plt Count Comment DECREASED A Myelocytes % 2 H (0-0) % Promyelocytes % 3 H (0-0) % Neutrophils # (Manual) 15.13 H (2.00-8.90) X 10*3/uL Eosinophils # (Manual) 0 L (0.04-0.35) X 10*3/uL Basophils # (Manual) 0.19 H (0.00-0.10) X 10*3/uL Immature Plt Fraction 18.7 H (1.1-6.1) % BUN 8.0 L (9.0-27.0) mg/dL BUN/Creatinine Ratio 9.87 L (12.00-20.00) Ratio Glucose 121 H (70-110) mg/dL Calcium 7.5 L (8.7-10.3) mg/dL C-Reactive Protein 20.50 H (0.00-0.80) mg/dL Procalcitonin 1.07 H (0.02-0.09) ng/mL Microbiology - Last 24 Hours (Table) 02/27/22 19:02 Blood Culture - Preliminary Blood No Growth after 96 hours Assessment and Plan Assessment: Acute pyelonephritis E. coli bacteremia likely source from the UTI. Repeat cultures pending Severe sepsis secondary to above Intractable nausea and vomiting Acute kidney injury Likely prerenal. possible ATN due to infection/ hypotension. Creatinine level 3.36 on admission and baseline creatinine is 0.65, currently 1.0 Medullary sponge kidney Hypokalemia, improved History of renal stones DVT prophylaxis full code Patient will be continued on antibiotics IV ceftriaxone and final urine culture reports and blood cultures show ecoli with sensitivity. ID following and procalcitonin, CRP, repeat blood cultures ordered as patient continues with fevers and WBC count trending up. Renal ultrasound showed no gallstones or dilated ducts. Continue with IV hydration and nephrology and ID is on board. IV fluids being changed to lactated ringers per nephrology. Replace electrolytes and symptomatic management for nausea and vomiting. GI and DVT prophylaxis. Encouraged oral intake and increased activity as tolerated. Patient reports to mostly sleeping and not having much energy or appetite. Continue to monitor closely.
--- NOTE | 2021-05-17 11:13 | P.PN ---
Subjective Progress Note Date: 05/16/21 Principal diagnosis: E. coli urinary tract infection and bacteremia Acute cholecystitis 46-year-old female with a known history of medullary sponge kidney, history of pyelonephritis, nephrolithiasis and currently everyday smoker presents to ER with complaints of intractable nausea and vomiting for the past 4 days. Patient is unable to keep down food and was having generalized body aches and fever/chills. Patient also complaining of bilateral flank pain lower back pain worsens with movement. Denied any numbness or tingling in the hands. No chest pain or shortness of breath. Denied any dysuria or hematuria. No cough or sputum production. Denies any recent illnesses. Patient presents to ER due to worsening symptoms. Patient had ultrasound abdomen showed 5 mm hyperechoic focus in the upper pole of the right kidney is probable lipoma. No gallstones or dilated ducts. Hepatomegaly. Lumbar spine x-ray showed negative lumbar spine exam. No fractures. CT of the abdomen pelvis showed significant right renal swelling without any significant hydronephrosis. This is consistent with acute pyelonephritis and did a change compared to the old exam. Laboratory data showed WBC 20.4 hemoglobin 13.0 and platelets 115 sodium 137 potassium 3.7 chloride 104 bicarb is 18 BUN 48 and creatinine 3.36 Urinalysis showed turbid with 3+ protein moderate blood nitrite negative and liver large leukocyte esterase elevated RBCs and WBCs COVID-19 PCR not detected. 05/16/2021 Patient seen and evaluated in room at bedside; continues to be spiking a fever of the last 24 hours, complaining of more pain into the epigastric area with nausea but no vomiting Vital signs reviewed with temperature of 102.0, pulse 48, respiration 18 and blood pressure 127/78 Lab review shows a persistent white blood count of 15.8, hemoglobin of 11.4 and platelet count of 262, sodium 139, potassium 4.3, BUN/creatinine of 5.7/0.8; repeat blood cultures have been negative to date Repeat CT of the abdomen reveals significant swelling of the right kidney consistent with pyelonephritis along with concern for possible cholecystitis ID on board and is recommending to switch antibiotics to Unasyn for emphysematous pyelonephritis versus cholecystitis; we will consult general surgery for further recommendations Objective - Vital Signs Vital signs: Vital Signs Temp 99.4 F 05/16/21 05:00 Pulse 91 05/16/21 05:00 Resp 16 05/16/21 05:00 BP 125/70 05/16/21 05:00 Pulse Ox 97 05/16/21 05:00 Intake & Output 05/15/21 05/16/21 05/16/21 18:59 06:59 18:59 Intake Total 1100 1550 Balance 1100 1550 Weight 70.307 kg Intake: Intake, IV Titration 1100 950 Amount Lactated Ringers 1,000 ml 900 900 @ 75 mls/hr IV .[id number] [facility] Rx#:[id number] Magnesium Sulfate-D5w Pmx 200 1 gm In Dextrose/Water 1 100ml.bag @ 100 mls/hr IVPB Q1H [facility] Rx#: [id number] cefTRIAXone 2 gm In 50 Sodium Chloride 0.9% 50 ml @ 100 mls/hr IVPB HS [facility] Rx#:[id number] Oral 600 Other: Voiding Method Toilet Toilet # Voids 3 - Exam Patient is lying in the bed comfortably, asleep, but arousable, no acute distress HEENT: Normocephalic. Neck is supple. Pupils reactive. Nostrils clear. Oral cavity is moist. Neck reveals no JVD, carotid bruits, or thyromegaly. CHEST EXAMINATION: Trachea is central. Symmetrical expansion. Lung leger clear to auscultation and percussion. CARDIAC: Normal S1, S2 with no gallops. No murmurs ABDOMEN: Soft. Bowel sounds normal. No organomegaly. No abdominal bruits. Right flank along with epigastric and right upper quadrant tenderness Extremities: reveal no edema. No clubbing or cyanosis Neurologically asleep but arousable, alert, oriented x3 with well-coordinated movements. No focal deficits noted Skin: No rash or skin lesions. - Labs CBC & Chem 7: 05/17/21 05:54 05/17/21 05:54 Labs: Abnormal Lab Results - Last 24 Hours (Table) 05/16/21 Range/Units 06:14 BUN 5.7 L (9.0-27.0) mg/dL BUN/Creatinine Ratio 7.13 L (12.00-20.00) Ratio Calcium 7.6 L (8.7-10.3) mg/dL Microbiology - Last 24 Hours (Table) 05/15/21 06:15 Blood Culture - Preliminary Blood No Growth after 24 hours 05/10/21 19:02 Blood Culture - Preliminary Blood No Growth after 120 hours Assessment and Plan Assessment: Acute pyelonephritis E. coli bacteremia likely source from the UTI. Repeat cultures pending Severe sepsis secondary to above Intractable nausea and vomiting Acute kidney injury Likely prerenal. possible ATN due to infection/ hypotension. Creatinine level 3.36 on admission and baseline creatinine is 0.65, currently 1.0 Medullary sponge kidney Hypokalemia, improved History of renal stones DVT prophylaxis full code Patient will be continued on antibiotics IV ceftriaxone and final urine culture reports and blood cultures show ecoli with sensitivity. ID following and procalcitonin, CRP, repeat blood cultures ordered as patient continues with fevers and WBC count trending up. Renal ultrasound showed no gallstones or dilated ducts. Continue with IV hydration and nephrology and ID is on board. IV fluids being changed to lactated ringers per nephrology. Replace electrolytes and symptomatic management for nausea and vomiting. GI and DVT prophylaxis. Encouraged oral intake and increased activity as tolerated. Patient reports to mostly sleeping and not having much energy or appetite. Continue to monitor closely.
--- NOTE | 2021-05-17 11:23 | P.GSCN ---
History of Present Illness Consult date: 05/17/21 Reason for Consult: Right upper quadrant pain History of present illness: This a 46-year-old female who is admitted to the hospital for possible pyelonephritis. Patient progressed to having right upper quadrant pain. His workup found have evidence of cholelithiasis and cholecystitis. Past Medical History Past Medical History: Pneumonia, Renal Disease Additional Past Medical History / Comment(s): Medullary sponge kidney, pyelonephritis, nephrolithiasis/passed stone on her own, UTI, History of Any Multi-Drug Resistant Organisms: None Reported Past Surgical History: Section, Hernia Repair, Tubal Ligation Additional Past Surgical History / Comment(s): Umbilical hernia repair Past Anesthesia/Blood Transfusion Reactions: No Reported Reaction Smoking Status: Current every day smoker - Past Family History Father Family Medical History: No Reported History Additional Family Medical History / Comment(s): Father is healthy Mother Family Medical History: Cancer Additional Family Medical History / Comment(s): Breast cancer survivor Medications and Allergies Home Medications Medication Instructions Recorded Confirmed Type No Known Home Medications 05/10/21 05/10/21 History Allergies Allergy/AdvReac Type Severity Reaction Status Date / Time hydromorphone HCl Allergy Swelling Verified 05/10/21 17:50 [From Dilaudid] Morpholine Analogues AdvReac Itching Verified 05/10/21 17:50 Surgical - Exam Vital Signs Temp Pulse Resp BP Pulse Ox 98.4 F 109 H 20 86/56 98 05/10/21 15:19 05/10/21 15:19 05/10/21 15:19 05/10/21 15:19 05/10/21 15:19 - General well developed, well nourished, no distress - Eyes PERRL - ENT normal pinna - Neck no masses - Respiratory normal expansion - Cardiovascular Rhythm: regular - Abdomen Abdomen soft. There is tenderness right upper quadrant. Results - Labs 05/17/21 05:54 05/17/21 05:54 Abnormal Lab Results - Last 24 Hours (Table) 05/16/21 05/16/21 05/17/21 Range/Units 06:14 06:14 05:54 WBC 15.8 H (3.8-10.6) k/uL RBC 3.61 L (3.80-5.40) m/uL Hgb (12.0-15.0) g/dL Hct (37.2-46.3) % MCV 102.4 H D (80.0-100.0) fL MCHC 30.9 L (31.0-37.0) g/dL Metamyelocytes % (0-0) % Myelocytes % (0-0) % Neutrophils # (Manual) 12.17 H (1.3-7.7) k/uL Eosinophils # (Manual) (0.04-0.35) X 10*3/uL Metamyelocytes # (Man) 0.32 H (0) k/uL Myelocytes # (Manual) 0.47 H (0) k/uL BUN 5.7 L 4.9 L (9.0-27.0) mg/dL BUN/Creatinine Ratio 7.13 L 7.50 L (12.00-20.00) Ratio Calcium 7.6 L 7.4 L (8.7-10.3) mg/dL 05/17/21 Range/Units 05:54 WBC 17.70 H (3.8-10.6) k/uL RBC 3.03 L (3.80-5.40) m/uL Hgb 9.0 L (12.0-15.0) g/dL Hct 28.5 L (37.2-46.3) % MCV (80.0-100.0) fL MCHC 31.6 L (31.0-37.0) g/dL Metamyelocytes % 1 H (0-0) % Myelocytes % 1 H (0-0) % Neutrophils # (Manual) 14.87 H (1.3-7.7) k/uL Eosinophils # (Manual) 0.53 H (0.04-0.35) X 10*3/uL Metamyelocytes # (Man) (0) k/uL Myelocytes # (Manual) (0) k/uL BUN (9.0-27.0) mg/dL BUN/Creatinine Ratio (12.00-20.00) Ratio Calcium (8.7-10.3) mg/dL Microbiology - Last 24 Hours (Table) 05/15/21 06:15 Blood Culture - Preliminary Blood No Growth after 48 hours 05/10/21 19:02 Blood Culture - Final Blood No Growth after 144 hours Diabetes panel 05/16/21 05/17/21 Range/Units 06:14 05:54 Sodium 139 138 (135-145) mmol/L Potassium 4.3 3.8 (3.5-5.5) mmol/L Chloride 103 102 (96-109) mmol/L Carbon Dioxide 24.0 24.5 (20.0-27.5) mmol/L BUN 5.7 L 4.9 L (9.0-27.0) mg/dL Creatinine 0.8 0.7 (0.6-1.5) mg/dL Glucose 85 109 (70-110) mg/dL Calcium 7.6 L 7.4 L (8.7-10.3) mg/dL Calcium panel 05/16/21 05/17/21 Range/Units 06:14 05:54 Calcium 7.6 L 7.4 L (8.7-10.3) mg/dL Pituitary panel 05/16/21 05/17/21 Range/Units 06:14 05:54 Sodium 139 138 (135-145) mmol/L Potassium 4.3 3.8 (3.5-5.5) mmol/L Chloride 103 102 (96-109) mmol/L Carbon Dioxide 24.0 24.5 (20.0-27.5) mmol/L BUN 5.7 L 4.9 L (9.0-27.0) mg/dL Creatinine 0.8 0.7 (0.6-1.5) mg/dL Glucose 85 109 (70-110) mg/dL Calcium 7.6 L 7.4 L (8.7-10.3) mg/dL Adrenal panel 05/16/21 05/17/21 Range/Units 06:14 05:54 Sodium 139 138 (135-145) mmol/L Potassium 4.3 3.8 (3.5-5.5) mmol/L Chloride 103 102 (96-109) mmol/L Carbon Dioxide 24.0 24.5 (20.0-27.5) mmol/L BUN 5.7 L 4.9 L (9.0-27.0) mg/dL Creatinine 0.8 0.7 (0.6-1.5) mg/dL Glucose 85 109 (70-110) mg/dL Calcium 7.6 L 7.4 L (8.7-10.3) mg/dL Assessment and Plan Assessment: Right upper quadrant pain. Cholelithiasis. Patient will undergo laparoscopic cholecystectomy in the a.m.
[2021-05-17] MEDS: MAGNESIUM OXIDE 400 MG TAB PO SCH ×2 (12:25→21:10)
--- NOTE | 2021-05-17 17:51 | P.PN ---
Subjective Progress Note Date: 05/17/21 Principal diagnosis: E. coli urinary tract infection and bacteremia Patient is a 46-year female presented to hospital with flank pain nausea and vomiting this patient has been diagnosed with the E. coli ureteric infection/pyonephritis with secondary bacteremia. On today's evaluation that is 05/17/2021 the patient did spike another fever of 102F around would afebrile since then, patient has been complaining of pain in epigastric area , the patient did have some nausea but no vomiting no chest pain shortness of breath or cough and no diarrhea Objective - Vital Signs Vital signs: Vital Signs Temp 99.3 F 05/17/21 15:16 Pulse 77 05/17/21 12:26 Resp 16 05/17/21 12:26 BP 119/73 05/17/21 12:26 Pulse Ox 95 05/17/21 12:26 Intake & Output 05/16/21 05/17/21 05/17/21 18:59 06:59 18:59 Intake Total 300 1700 Balance 300 1700 Intake: Intake, IV Titration 300 1100 Amount Ampicillin-Sulbactam 3 gm 200 200 In Sodium Chloride 0.9% 100 ml @ 200 mls/hr IVPB Q6HR [facility] Rx#:[id number] Lactated Ringers 1,000 ml 900 @ 75 mls/hr IV .[id number] [facility] Rx#:[id number] cefTRIAXone 2 gm In 100 Sodium Chloride 0.9% 50 ml @ 100 mls/hr IVPB HS [facility] Rx#:[id number] Oral 600 Other: Voiding Method Toilet Toilet # Voids 5 3 - Exam GENERAL DESCRIPTION: Middle-aged female lying in bed, no distress. No tachypnea or accessory muscle of respiration use. LUNGS: Unlabored breathing. Clear to auscultation anteriorly. No wheeze or crackle. HEART: S1, S2, regular rate and rhythm. No loud murmur ABDOMEN: Soft, no tenderness , guarding or rigidity, no organomegaly EXTREMITIES: No edema of feet. - Labs CBC & Chem 7: 05/17/21 05:54 05/17/21 05:54 Labs: Abnormal Lab Results - Last 24 Hours (Table) 05/17/21 05/17/21 Range/Units 05:54 05:54 WBC 17.70 H (4.50-10.00) X 10*3/uL RBC 3.03 L (4.10-5.20) X 10*6/uL Hgb 9.0 L (12.0-15.0) g/dL Hct 28.5 L (37.2-46.3) % MCHC 31.6 L (32.0-37.0) g/dL Metamyelocytes % 1 H (0-0) % Myelocytes % 1 H (0-0) % Neutrophils # (Manual) 14.87 H (2.00-8.90) X 10*3/uL Eosinophils # (Manual) 0.53 H (0.04-0.35) X 10*3/uL BUN 4.9 L (9.0-27.0) mg/dL BUN/Creatinine Ratio 7.50 L (12.00-20.00) Ratio Calcium 7.4 L (8.7-10.3) mg/dL Microbiology - Last 24 Hours (Table) 05/15/21 06:15 Blood Culture - Preliminary Blood No Growth after 48 hours 05/10/21 19:02 Blood Culture - Final Blood No Growth after 144 hours Assessment and Plan (1) Pyelonephritis Current Visit: Yes Status: Acute Code(s): N12 - TUBULO-INTERSTITIAL NEPHRITIS, NOT SPCF ACUTE OR CHRONIC SNOMED Code(s): 39002545 Plan: 1patient presented to hospital with sepsis in this patient did have a fever elevated white count tachycardia with evidence of gram-negative bacteremia source is urinary and right-sided pyelonephritis with no evidence of any hydronephrosis or structural abnormality on the ultrasound, patient repeat CT did show significant swelling of the right kidney and concern for possible cholecystitis, Gen. surgery has been consulted and plan is for cholecystectomy in the morning 2Patient to continue with IV Unasyn Time with Patient: Less than 30
--- NOTE | 2021-05-18 00:35 | P.PN ---
Subjective Progress Note Date: 05/17/21 Principal diagnosis: E. coli urinary tract infection and bacteremia Acute cholecystitis 46-year-old female with a known history of medullary sponge kidney, history of pyelonephritis, nephrolithiasis and currently everyday smoker presents to ER with complaints of intractable nausea and vomiting for the past 4 days. Patient is unable to keep down food and was having generalized body aches and fever/chills. Patient also complaining of bilateral flank pain lower back pain worsens with movement. Denied any numbness or tingling in the hands. No chest pain or shortness of breath. Denied any dysuria or hematuria. No cough or sputum production. Denies any recent illnesses. Patient presents to ER due to worsening symptoms. Patient had ultrasound abdomen showed 5 mm hyperechoic focus in the upper pole of the right kidney is probable lipoma. No gallstones or dilated ducts. Hepatomegaly. Lumbar spine x-ray showed negative lumbar spine exam. No fractures. CT of the abdomen pelvis showed significant right renal swelling without any significant hydronephrosis. This is consistent with acute pyelonephritis and did a change compared to the old exam. Laboratory data showed WBC 20.4 hemoglobin 13.0 and platelets 115 sodium 137 potassium 3.7 chloride 104 bicarb is 18 BUN 48 and creatinine 3.36 Urinalysis showed turbid with 3+ protein moderate blood nitrite negative and liver large leukocyte esterase elevated RBCs and WBCs COVID-19 PCR not detected. 05/16/2021 Patient seen and evaluated in room at bedside; continues to be spiking a fever of the last 24 hours, complaining of more pain into the epigastric area with nausea but no vomiting Vital signs reviewed with temperature of 102.0, pulse 48, respiration 18 and blood pressure 127/78 Lab review shows a persistent white blood count of 15.8, hemoglobin of 11.4 and platelet count of 262, sodium 139, potassium 4.3, BUN/creatinine of 5.7/0.8; repeat blood cultures have been negative to date Repeat CT of the abdomen reveals significant swelling of the right kidney consistent with pyelonephritis along with concern for possible cholecystitis ID on board and is recommending to switch antibiotics to Unasyn for emphysematous pyelonephritis versus cholecystitis; we will consult general surgery for further recommendations 05/17/21 Patient is seen and evaluated and complains of pain in epigastric area and continues to spike fever with a t max of 102 Patient remains on IV antibiotics Lab review shows WBC of 17.7 , patient evaluated by general surgery and is recommended cholecystectomy tomorrow morning Antibiotics have been switched to IV unasyn per ID recommendations for right sided pyelonephritis and cholcystitis Objective - Vital Signs Vital signs: Vital Signs Temp 98.5 F 05/17/21 04:00 Pulse 82 05/17/21 04:00 Resp 18 05/17/21 04:00 BP 111/71 05/17/21 04:00 Pulse Ox 94 L 05/17/21 04:00 Intake & Output 05/16/21 05/17/21 05/17/21 18:59 06:59 18:59 Intake Total 300 1700 Balance 300 1700 Intake: Intake, IV Titration 300 1100 Amount Ampicillin-Sulbactam 3 gm 200 200 In Sodium Chloride 0.9% 100 ml @ 200 mls/hr IVPB Q6HR [facility] Rx#:[id number] Lactated Ringers 1,000 ml 900 @ 75 mls/hr IV .[id number] [facility] Rx#:[id number] cefTRIAXone 2 gm In 100 Sodium Chloride 0.9% 50 ml @ 100 mls/hr IVPB HS [facility] Rx#:[id number] Oral 600 Other: Voiding Method Toilet Toilet # Voids 5 3 - Exam Patient is lying in the bed comfortably, asleep, but arousable, no acute distress HEENT: Normocephalic. Neck is supple. Pupils reactive. Nostrils clear. Oral cavity is moist. Neck reveals no JVD, carotid bruits, or thyromegaly. CHEST EXAMINATION: Trachea is central. Symmetrical expansion. Lung leger clear to auscultation and percussion. CARDIAC: Normal S1, S2 with no gallops. No murmurs ABDOMEN: Soft. Bowel sounds normal. No organomegaly. No abdominal bruits. Right flank along with epigastric and right upper quadrant tenderness Extremities: reveal no edema. No clubbing or cyanosis Neurologically asleep but arousable, alert, oriented x3 with well-coordinated movements. No focal deficits noted Skin: No rash or skin lesions. - Labs CBC & Chem 7: 05/17/21 05:54 05/17/21 05:54 Labs: Abnormal Lab Results - Last 24 Hours (Table) 05/16/21 05/16/21 05/17/21 Range/Units 06:14 06:14 05:54 WBC 15.8 H (3.8-10.6) k/uL RBC 3.61 L (3.80-5.40) m/uL Hgb (12.0-15.0) g/dL Hct (37.2-46.3) % MCV 102.4 H D (80.0-100.0) fL MCHC 30.9 L (31.0-37.0) g/dL Metamyelocytes % (0-0) % Myelocytes % (0-0) % Neutrophils # (Manual) 12.17 H (1.3-7.7) k/uL Eosinophils # (Manual) (0.04-0.35) X 10*3/uL Metamyelocytes # (Man) 0.32 H (0) k/uL Myelocytes # (Manual) 0.47 H (0) k/uL BUN 5.7 L 4.9 L (9.0-27.0) mg/dL BUN/Creatinine Ratio 7.13 L 7.50 L (12.00-20.00) Ratio Calcium 7.6 L 7.4 L (8.7-10.3) mg/dL 05/17/21 Range/Units 05:54 WBC 17.70 H (3.8-10.6) k/uL RBC 3.03 L (3.80-5.40) m/uL Hgb 9.0 L (12.0-15.0) g/dL Hct 28.5 L (37.2-46.3) % MCV (80.0-100.0) fL MCHC 31.6 L (31.0-37.0) g/dL Metamyelocytes % 1 H (0-0) % Myelocytes % 1 H (0-0) % Neutrophils # (Manual) 14.87 H (1.3-7.7) k/uL Eosinophils # (Manual) 0.53 H (0.04-0.35) X 10*3/uL Metamyelocytes # (Man) (0) k/uL Myelocytes # (Manual) (0) k/uL BUN (9.0-27.0) mg/dL BUN/Creatinine Ratio (12.00-20.00) Ratio Calcium (8.7-10.3) mg/dL Microbiology - Last 24 Hours (Table) 05/15/21 06:15 Blood Culture - Preliminary Blood No Growth after 48 hours 05/10/21 19:02 Blood Culture - Final Blood No Growth after 144 hours Assessment and Plan Assessment: Acute pyelonephritis E. coli bacteremia likely source from the UTI. Repeat cultures pending Severe sepsis secondary to above Intractable nausea and vomiting Acute kidney injury Likely prerenal. possible ATN due to infection/ hypotension. Creatinine level 3.36 on admission and baseline creatinine is 0.65, currently 1.0 Medullary sponge kidney Hypokalemia, improved History of renal stones DVT prophylaxis full code Patient will be continued on antibiotics IV ceftriaxone and final urine culture reports and blood cultures show ecoli with sensitivity. ID following and procalcitonin, CRP, repeat blood cultures ordered as patient continues with fevers and WBC count trending up. Renal ultrasound showed no gallstones or dilated ducts. Continue with IV hydration and nephrology and ID is on board. IV fluids being changed to lactated ringers per nephrology. Replace electrolytes and symptomatic management for nausea and vomiting. GI and DVT prophylaxis. Encouraged oral intake and increased activity as tolerated. Patient reports to mostly sleeping and not having much energy or appetite. Continue to monitor closely.
[2021-05-18] MEDS: LACTATED RINGERS 1,000 ML IV SCH (03:25)
[2021-05-18] MEDS: HYDROcodone/APAP 7.5-325MG 1 EACH TAB PO PRN ×3 (03:25→19:33)
[2021-05-18] MEDS: PROCHLORPERAZINE 5 MG TAB PO PRN (04:02)
[2021-05-18] MEDS: AMPICILLIN-SULBACTAM 3 GM in SODIUM CHLORIDE 0.9% 100 ML IVPB SCH ×4 (05:32→23:53)
[2021-05-18] MEDS ORDERED: IV FLUID CONTINUATION 800 ML IV ONE (08:11)
[2021-05-18] MEDS: HEPARIN SODIUM,PORCINE/PF 5,000 UNIT/0.5 ML SYRINGE SQ SCH (08:36)
[2021-05-18] MEDS ORDERED: ONDANSETRON 4 MG/2 ML VIAL IVP ONE (08:36)
[2021-05-18] MEDS ORDERED: MIDAZOLAM 2 MG/2 ML VIAL IVP ONE (08:36)
[2021-05-18] MEDS ORDERED: DEXAMETHASONE SOD PHOSPHATE 4 MG/ML 1 ML VIAL IVP ONE (08:36)
[2021-05-18] MEDS ORDERED: LIDOCAINE 1% INJ 10MG/ML (20 ML MDV) ONE (08:51)
[2021-05-18] MEDS ORDERED: MIDAZOLAM 2 MG/2 ML VIAL ONE (08:51)
[2021-05-18] MEDS ORDERED: GLYCOPYRROLATE 0.2 MG/ML 2 ML VIAL ONE (08:51)
[2021-05-18] MEDS ORDERED: SUCCINYLCHOLINE CHLORIDE 100 MG/5 ML SYR IV ONE (08:51)
[2021-05-18] MEDS ORDERED: PROPOFOL 10 MG/ML 20 ML VIAL IV ONE (08:51)
[2021-05-18] MEDS ORDERED: SODIUM CHLORIDE 0.9% 250 ML BAG ONE (08:51)
[2021-05-18] MEDS ORDERED: ROCURONIUM 10 MG/ML (5 ML VIAL) IV ONE (08:51)
[2021-05-18] MEDS ORDERED: ceFAZolin 1,000 MG VIAL ONE (08:51)
[2021-05-18] MEDS ORDERED: NEOSTIGMINE 1 MG/ML 10 ML VIAL ONE (08:51)
[2021-05-18] MEDS ORDERED: fentaNYL (PF) 50 MCG/ML 2 ML AMP ONE (08:51)
[2021-05-18 08:58] LABS: Basophils # (A) 0.07 X 10*3/uL (0.00-0.10); Basophils % (A) 0.4 %; Eosinophils # (A) 0.23 X 10*3/uL (0.04-0.35); Eosinophils % (A) 1.3 %; HCT 28.5 % (37.2-46.3); HGB 8.9 g/dL (12.0-15.0); Lymphocytes # (A) 1.94 X 10*3/uL (0.90-5.00); Lymphocytes % (A) 10.9 %; MCH 29.8 pg (27.0-32.0); MCHC 31.2 g/dL (32.0-37.0); MCV 95.3 fL (80.0-97.0); Mean Platelet Volume 10.8 fL (9.5-12.2); Monocytes # (A) 1.11 X 10*3/uL (0.20-1.00); Monocytes % (A) 6.2 %; NRBC Per 100 WBC 0 /100 WBCS (0.0-0.0); Neutrophils # (A) 13.53 X 10*3/uL (1.80-7.70); Neutrophils % (A) 76.2 %; Platelet Count 334 X 10*3/uL (140-440); RBC 2.99 X 10*6/uL (4.10-5.20); RDW 13.4 % (11.5-14.5); WBC 17.77 X 10*3/uL (4.50-10.00)
[2021-05-18 09:16] LABS: African American GFR (CKD) 124.3 (60.0-200.0); Anion Gap 11.1 mmol/L (10.00-18.00); BUN/Creat Ratio 7.59 Ratio (12.00-20.00); Calcium 7.3 mg/dL (8.7-10.3); Carbon Dioxide 23.7 mmol/L (20.0-27.5); Non-African American GFR(CKD) 107.2 (60.0-200.0); Potassium 3.8 mmol/L (3.5-5.5)
[2021-05-18] MEDS ORDERED: BUPIVACAIN-EPI 0.25%-1:200,000 30 ML VIAL SQ ONE (09:23)
--- NOTE | 2021-05-18 09:42 | P.OP ---
Date of Procedure: 05/18/21 Preoperative Diagnosis: Cholecystitis Postoperative Diagnosis: Cholecystitis Procedure(s) Performed: Laparoscopic cholecystectomy Anesthesia: GRISELDA Surgeon: Tristan Portillo Estimated Blood Loss (ml): 5 Pathology: other (Gallbladder) Condition: stable Disposition: PACU Description of Procedure: The patient was placed on the operating table. The patient received a general endotracheal tube anesthesia. The patients abdomen was prepped and draped in the usual sterile fashion. Through an infraumbilical stab incision, the fascia of the anterior abdominal wall was grasped with a pair of Kochers and then the Veress needle was placed in the peritoneal cavity. Position of the Veress needle was confirmed with positive drop test. The abdomen was then insufflated. After adequate insufflation, the 10 mm trocar was placed in the peritoneal cavity. Following this the laparoscope was placed in the peritoneal cavity. The patient was placed in the head-up, right side up position and then a 5 mm trocar was placed in the right lateral and right subcostal position under direct visualization. A 8 mm trocar was placed in the epigastric position. The gallbladder was grasped in the fundus and infundibulum. Traction on the gallbladder was placed in the lateral and the cephalad positions. The triangle of Calot was visualized.. The cystic duct was bluntly dissected until the union of the cystic duct and common bile duct was seen. A critical view of safety was achieved. The cystic duct was then divided and sealed with the Harmonic scissors. A PDS Endoloop was then placed throughout the cystic duct stump. The cystic artery divided and sealed with the Harmonic scissors. The gallbladder was then removed from the liver bed using Harmonic scissors. The gallbladder was then extracted through the epigastric port site. Operative field was checked for any bleeding spots and Harmonic scissors was used to coagulate the liver bed. The abdomen was irrigated. The trocars were removed. The skin was closed using interrupted 3-0 Vicryl suture. Dermabond dressing were applied. The patient tolerated the procedure well.
[2021-05-18] MEDS: fentaNYL (PF) 50 MCG/ML 2 ML AMP IVP ONE ×4 (09:55→10:15)
[2021-05-18] MEDS ORDERED: LACTATED RINGERS 1,000 ML IV ONE (10:26)
[2021-05-18] MEDS: CIPROFLOXACIN HCL 500 MG TAB PO SCH ×2 (11:43→21:06)
[2021-05-18] MEDS: KETOROLAC 30 MG/ML 1 ML VIAL IVP SCH ×3 (11:44→23:53)
[2021-05-18] MEDS: FAMOTIDINE 20 MG TAB PO SCH ×2 (11:44→21:07)
[2021-05-18] MEDS: MAGNESIUM OXIDE 400 MG TAB PO SCH ×2 (11:44→21:07)
[2021-05-18] MEDS: diphenhydrAMINE 25 MG CAP PO PRN (16:21)
[2021-05-18] MEDS: MORPHINE SULFATE 2 MG/ML SYRINGE IVP PRN ×2 (17:01→21:10)
[2021-05-19] MEDS: MORPHINE SULFATE 2 MG/ML SYRINGE IVP PRN ×2 (01:14→06:05)
[2021-05-19] MEDS: diphenhydrAMINE 25 MG CAP PO PRN (01:14)
--- NOTE | 2021-05-19 01:40 | P.PN ---
Subjective This is a pleasant 46 years old female who presents with acute pyelonephritis with positive urine blood culture for E. coli, currently covered with Unasyn and by mouth Cipro per infectious disease team for following case. 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 Patient underwent cholecystectomy laparoscopically today. She is fully awake and oriented, she has some pain in her right upper quadrant with surgery procedure done as well as flank pain about 7/10 in severity Labs reviewed Continue with Ringer lactate 50 mL/h I offered to do a test for her today but she declined, risks and benefits explained Objective - Vital Signs Vital signs: Vital Signs Temp 98.3 F 05/18/21 11:17 Pulse 83 05/18/21 12:24 Resp 16 05/18/21 10:46 BP 102/59 05/18/21 15:00 Pulse Ox 88 L 05/18/21 13:00 Intake & Output 05/17/21 05/18/21 05/18/21 18:59 06:59 18:59 Intake Total 200 1300 700 Output Total 5 Balance 200 1300 695 Weight 70.307 kg Intake: IV 700 Intake, IV Titration 200 700 Amount Ampicillin-Sulbactam 3 gm 200 200 In Sodium Chloride 0.9% 100 ml @ 200 mls/hr IVPB Q6HR [facility] Rx#:[id number] Lactated Ringers 1,000 ml 500 @ 50 mls/hr IV .Q20H [facility] Rx#:[id number] Oral 600 Output: Estimated Blood Loss 5 Other: Voiding Method Toilet Toilet Toilet # Voids 3 - Exam GENERAL: The patient is alert and oriented x3, not in any acute distress. Well developed, well nourished. HEENT: Pupils are round and equally reacting to light. EOMI. No scleral icterus. No conjunctival pallor. Normocephalic, atraumatic. No pharyngeal erythema. No thyromegaly. CARDIOVASCULAR: S1 and S2 present. No murmurs, rubs, or gallops. PULMONARY: Chest is clear to auscultation, no wheezing or crackles. -ABDOMEN: Soft, mild abdominal tenderness, no rebound tenderness, nondistended, normoactive bowel sounds. No palpable organomegaly. MUSCULOSKELETAL: No joint swelling or deformity. EXTREMITIES: No cyanosis, clubbing, or pedal edema. NEUROLOGICAL: Gross neurological examination did not reveal any focal deficits. SKIN: No rashes. no petechiae. - Labs CBC & Chem 7: 05/18/21 05:39 05/18/21 05:39 Labs: Abnormal Lab Results - Last 24 Hours (Table) 05/18/21 05/18/21 Range/Units 05:39 05:39 WBC 17.77 H (4.50-10.00) X 10*3/uL RBC 2.99 L (4.10-5.20) X 10*6/uL Hgb 8.9 L (12.0-15.0) g/dL Hct 28.5 L (37.2-46.3) % MCHC 31.2 L (32.0-37.0) g/dL Immature Gran # 0.89 H (0.00-0.04) X 10*3/uL Neutrophils # 13.53 H (1.80-7.70) X 10*3/uL Monocytes # 1.11 H (0.20-1.00) X 10*3/uL BUN 5.0 L (9.0-27.0) mg/dL BUN/Creatinine Ratio 7.59 L (12.00-20.00) Ratio Calcium 7.3 L (8.7-10.3) mg/dL Microbiology - Last 24 Hours (Table) 05/15/21 06:15 Blood Culture - Preliminary Blood No Growth after 72 hours Assessment and Plan Assessment: Acute pyelonephritis E. coli bacteremia likely source from the UTI. Repeat cultures pending sepsis secondary to above Acute cholecystitis, status post laparoscopic cholecystectomy on 05/18 History of renal stones Plan: This is a pleasant 46 years old female who presents with pyelonephritis and cholecystitis status post lap jonah Continue with antibiotic, currently on Unasyn and by mouth Cipro per ID team. Surgical team followed closely Continue with gentle hydration Labs and medication were reviewed.. Continue same treatment. Continue with symptomatic treatment. Resume home medication. Monitor lytes and vitals. DVT and GI prophylaxis. Further recommendations as per clinical course of the patient DVT prophylaxis: Subcutaneous Lovenox GI Prophylaxis: Pepcid
[2021-05-19] MEDS: HYDROcodone/APAP 7.5-325MG 1 EACH TAB PO PRN ×4 (03:51→22:14)
[2021-05-19] MEDS: AMPICILLIN-SULBACTAM 3 GM in SODIUM CHLORIDE 0.9% 100 ML IVPB SCH ×3 (05:55→17:07)
[2021-05-19] MEDS: KETOROLAC 30 MG/ML 1 ML VIAL IVP SCH ×2 (05:56→12:21)
[2021-05-19] MEDS: CIPROFLOXACIN HCL 500 MG TAB PO SCH ×2 (08:42→19:46)
[2021-05-19] MEDS: MAGNESIUM OXIDE 400 MG TAB PO SCH ×2 (08:42→19:46)
[2021-05-19] MEDS: ENOXAPARIN 40 MG/0.4 ML SYRINGE SQ SCH (08:42)
[2021-05-19] MEDS: FAMOTIDINE 20 MG TAB PO SCH ×2 (08:42→19:46)
[2021-05-19] MEDS: LACTATED RINGERS 1,000 ML IV SCH (08:45)
[2021-05-19 11:07] LABS: Basophils # (A) 0.1 k/uL (0-0.2); Basophils % (A) 0 %; Eosinophils # (A) 0.1 k/uL (0-0.7); Eosinophils % (A) 0 %; Hypochromasia Slight; Lymphocytes # (A) 1.5 k/uL (1.0-4.8); Lymphocytes % (A) 10 %; MCH 30.7 pg (25.0-35.0); MCHC 30.9 g/dL (31.0-37.0); MCV 99.3 fL (80.0-100.0); Mean Platelet Volume 8.9; Monocytes # (A) 0.5 k/uL (0-1.0); Monocytes % (A) 4 %; Neutrophils # (A) 12.8 k/uL (1.3-7.7); Neutrophils % (A) 85 %; RBC 3.12 m/uL (3.80-5.40); RDW 13.7 % (11.5-15.5); WBC 15.1 k/uL (3.8-10.6)
[2021-05-19 11:11] LABS: HGB 9.6 gm/dL (11.4-16.0)
[2021-05-19 11:12] LABS: Platelet Count 680 k/uL (150-450)
--- NOTE | 2021-05-19 11:48 | P.PN ---
Subjective Progress Note Date: 05/19/21 CHIEF COMPLAINT: Cholecystitis HISTORY OF PRESENT ILLNESS: Patient is status post laparoscopic cholecystectomy. Patient does complain of abdominal pain. She reports that it is feeling better. She did required some IV morphine this morning. But she feels that she would be okay with the pain pills. She is having flatus and small bowel movement. Denies any nausea or vomiting. Tolerating regular diet. Afebrile. WBC 17.7 down to 15.1 hemoglobin 9.6 Patient seen and examined with Dr. rene PHYSICAL EXAM: VITAL SIGNS: Reviewed. GENERAL: Well-developed in no acute distress. HEENT: No sclera icterus. Extraocular movements grossly intact. Moist buccal mucosa. Head is atraumatic, normocephalic. ABDOMEN: Soft. Nondistended. Incision sites clean dry and intact. Minimal tenderness at incision sites NEUROLOGIC: Alert and oriented. Cranial nerves II through XII grossly intact. ASSESSMENT: 1. Cholecystitis status post laparoscopic cholecystectomy PLAN: -Patient can be discharged from surgical standpoint -Antibiotics per ID service -Continue supportive care -Encourage patient to ambulate Physician Engineering Drawings Checker note has been reviewed by physician. Signing provider agrees with the documented findings, assessment, and plan of care. Objective - Vital Signs Vital signs: Vital Signs Temp 97.8 F 05/19/21 11:38 Pulse 68 05/19/21 11:38 Resp 18 05/19/21 11:38 BP 126/84 05/19/21 11:38 Pulse Ox 94 L 05/19/21 11:38 Intake & Output 05/18/21 05/19/21 05/19/21 18:59 06:59 18:59 Intake Total 1000 590 Output Total 5 Balance 995 590 Weight 70.307 kg Intake: IV 700 Intake, IV Titration 300 Amount Ampicillin-Sulbactam 3 gm 300 In Sodium Chloride 0.9% 100 ml @ 200 mls/hr IVPB Q6HR [facility] Rx#:[id number] Oral 590 Output: Estimated Blood Loss 5 Other: Voiding Method Toilet Toilet # Voids 1 - Labs CBC & Chem 7: 05/19/21 10:33 05/18/21 05:39 Labs: Abnormal Lab Results - Last 24 Hours (Table) 05/19/21 Range/Units 10:33 WBC 15.1 H (3.8-10.6) k/uL RBC 3.12 L (3.80-5.40) m/uL Hgb 9.6 L D (11.4-16.0) gm/dL Hct 31.0 L (34.0-46.0) % MCHC 30.9 L (31.0-37.0) g/dL Plt Count 680 H D (150-450) k/uL Neutrophils # 12.8 H (1.3-7.7) k/uL Microbiology - Last 24 Hours (Table) 05/15/21 06:15 Blood Culture - Preliminary Blood No Growth after 96 hours
--- NOTE | 2021-05-19 15:18 | P.PN ---
Subjective This is a pleasant 46 years old female who presents with acute pyelonephritis with positive urine blood culture for E. coli, currently covered with Unasyn and by mouth Cipro per infectious disease team for following case. 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 Patient underwent cholecystectomy laparoscopically today. She is fully awake and oriented, she has some pain in her right upper quadrant with surgery procedure done as well as flank pain about 7/10 in severity Labs reviewed Continue with Ringer lactate 50 mL/h I offered to do a test for her today but she declined, risks and benefits explained 05/19/2021 Patient clinically doing well, no more fever for the last 48 hours, her leukocytosis is trending down 17.7 into 15.1 which is still elevated therefore patient might benefit from extra day of IV antibiotic, discussed with infectious disease team. Patient informed and she says it's okay for her to stay 1 more day, other than that she wants to go home eagerly. She denies any other symptoms. Surgery team or the ureter for discharge after laparoscopic cholecystectomy yesterday. Objective - Vital Signs Vital signs: Vital Signs Temp 98.0 F 05/19/21 04:44 Pulse 82 05/19/21 04:44 Resp 16 05/19/21 04:44 BP 116/68 05/19/21 04:44 Pulse Ox 94 L 05/19/21 04:44 Intake & Output 05/18/21 05/19/21 05/19/21 18:59 06:59 18:59 Intake Total 1000 590 Output Total 5 Balance 995 590 Weight 70.307 kg Intake: IV 700 Intake, IV Titration 300 Amount Ampicillin-Sulbactam 3 gm 300 In Sodium Chloride 0.9% 100 ml @ 200 mls/hr IVPB Q6HR [facility] Rx#:[id number] Oral 590 Output: Estimated Blood Loss 5 Other: Voiding Method Toilet Toilet # Voids 1 - Exam GENERAL: The patient is alert and oriented x3, not in any acute distress. Well developed, well nourished. HEENT: Pupils are round and equally reacting to light. EOMI. No scleral icterus. No conjunctival pallor. Normocephalic, atraumatic. No pharyngeal erythema. No thyromegaly. CARDIOVASCULAR: S1 and S2 present. No murmurs, rubs, or gallops. PULMONARY: Chest is clear to auscultation, no wheezing or crackles. -ABDOMEN: Soft, mild abdominal tenderness, no rebound tenderness, nondistended, normoactive bowel sounds. No palpable organomegaly. MUSCULOSKELETAL: No joint swelling or deformity. EXTREMITIES: No cyanosis, clubbing, or pedal edema. NEUROLOGICAL: Gross neurological examination did not reveal any focal deficits. SKIN: No rashes. no petechiae. - Labs CBC & Chem 7: 05/19/21 10:33 05/18/21 05:39 Labs: Microbiology - Last 24 Hours (Table) 05/15/21 06:15 Blood Culture - Preliminary Blood No Growth after 96 hours Assessment and Plan Assessment: Acute pyelonephritis E. coli bacteremia likely source from the UTI. Repeat cultures pending sepsis secondary to above Acute cholecystitis, status post laparoscopic cholecystectomy on 05/18 History of renal stones Plan: This is a pleasant 46 years old female who presents with pyelonephritis and cholecystitis status post lap jonah Continue with antibiotic, currently on Unasyn per ID team. Surgical team . The patient for discharge Monitored WBC tomorrow Continue with gentle hydration Labs and medication were reviewed.. Continue same treatment. Continue with symptomatic treatment. Resume home medication. Monitor lytes and vitals. DVT and GI prophylaxis. Further recommendations as per clinical course of the patient DVT prophylaxis: Subcutaneous Lovenox GI Prophylaxis: Pepcid
[2021-05-19] MEDS: KETOROLAC 15 MG/ML 1 ML VIAL IVP SCH (17:06)
--- NOTE | 2021-05-19 22:25 | P.PN ---
Subjective Progress Note Date: 05/18/21 Principal diagnosis: E. coli urinary tract infection and bacteremia Patient is a 46-year female presented to hospital with flank pain nausea and vomiting this patient has been diagnosed with the E. coli ureteric infection/pyonephritis with secondary bacteremia. The patient is status post laparoscopic cholecystectomy completed 05/18/2021 On today's evaluation that is 05/18/2021 the patient is afebrile today, the patient pain in epigastric area has decreased in intensity , the patient did have some nausea but no vomiting no chest pain shortness of breath or cough and no diarrhea Objective - Vital Signs Vital signs: Vital Signs Temp 98.3 F 05/18/21 11:17 Pulse 83 05/18/21 12:24 Resp 16 05/18/21 10:46 BP 116/70 05/18/21 12:24 Pulse Ox 94 L 05/18/21 12:24 Intake & Output 05/17/21 05/18/21 05/18/21 18:59 06:59 18:59 Intake Total 200 1300 700 Output Total 5 Balance 200 1300 695 Weight 70.307 kg Intake: IV 700 Intake, IV Titration 200 700 Amount Ampicillin-Sulbactam 3 gm 200 200 In Sodium Chloride 0.9% 100 ml @ 200 mls/hr IVPB Q6HR [facility] Rx#:[id number] Lactated Ringers 1,000 ml 500 @ 50 mls/hr IV .Q20H [facility] Rx#:[id number] Oral 600 Output: Estimated Blood Loss 5 Other: Voiding Method Toilet Toilet Toilet # Voids 3 - Exam GENERAL DESCRIPTION: Middle-aged female lying in bed, no distress. No tachypnea or accessory muscle of respiration use. LUNGS: Unlabored breathing. Clear to auscultation anteriorly. No wheeze or crackle. HEART: S1, S2, regular rate and rhythm. No loud murmur ABDOMEN: Soft, no tenderness , guarding or rigidity, no organomegaly EXTREMITIES: No edema of feet. - Labs CBC & Chem 7: 05/19/21 10:33 05/18/21 05:39 Labs: Abnormal Lab Results - Last 24 Hours (Table) 05/18/21 05/18/21 Range/Units 05:39 05:39 WBC 17.77 H (4.50-10.00) X 10*3/uL RBC 2.99 L (4.10-5.20) X 10*6/uL Hgb 8.9 L (12.0-15.0) g/dL Hct 28.5 L (37.2-46.3) % MCHC 31.2 L (32.0-37.0) g/dL Immature Gran # 0.89 H (0.00-0.04) X 10*3/uL Neutrophils # 13.53 H (1.80-7.70) X 10*3/uL Monocytes # 1.11 H (0.20-1.00) X 10*3/uL BUN 5.0 L (9.0-27.0) mg/dL BUN/Creatinine Ratio 7.59 L (12.00-20.00) Ratio Calcium 7.3 L (8.7-10.3) mg/dL Microbiology - Last 24 Hours (Table) 05/15/21 06:15 Blood Culture - Preliminary Blood No Growth after 72 hours Assessment and Plan (1) Pyelonephritis Current Visit: Yes Status: Acute Code(s): N12 - TUBULO-INTERSTITIAL NEPHRITIS, NOT SPCF ACUTE OR CHRONIC SNOMED Code(s): 39709652 Plan: 1patient presented to hospital with sepsis in this patient did have a fever elevated white count tachycardia with evidence of gram-negative bacteremia source is urinary and right-sided pyelonephritis with no evidence of any hydronephrosis or structural abnormality on the ultrasound, patient repeat CT did show significant swelling of the right kidney and concern for possible cholecystitis, patient is status post cholecystectomy complicated 05/18/2021, patient to continue with the Unasyn as a white count is still elevated Time with Patient: Less than 30
--- NOTE | 2021-05-19 22:26 | P.PN ---
Subjective Progress Note Date: 05/19/21 Principal diagnosis: E. coli urinary tract infection and bacteremia Patient is a 46-year female presented to hospital with flank pain nausea and vomiting this patient has been diagnosed with the E. coli ureteric infection/pyonephritis with secondary bacteremia. The patient is status post laparoscopic cholecystectomy completed 05/18/2021 On today's evaluation that is 05/19/2021 the patient remains to be afebrile, the patient epigastric pain has decreased in intensity , the patient denies any further nausea or vomiting no chest pain shortness of breath or cough and no diarrhea Objective - Vital Signs Vital signs: Vital Signs Temp 97.8 F 05/19/21 11:38 Pulse 68 05/19/21 11:38 Resp 18 05/19/21 11:38 BP 126/84 05/19/21 11:38 Pulse Ox 94 L 05/19/21 11:38 Intake & Output 05/18/21 05/19/21 05/19/21 18:59 06:59 18:59 Intake Total 1000 590 Output Total 5 Balance 995 590 Weight 70.307 kg Intake: IV 700 Intake, IV Titration 300 Amount Ampicillin-Sulbactam 3 gm 300 In Sodium Chloride 0.9% 100 ml @ 200 mls/hr IVPB Q6HR [facility] Rx#:[id number] Oral 590 Output: Estimated Blood Loss 5 Other: Voiding Method Toilet Toilet # Voids 1 - Exam GENERAL DESCRIPTION: Middle-aged female lying in bed, no distress. No tachypnea or accessory muscle of respiration use. LUNGS: Unlabored breathing. Clear to auscultation anteriorly. No wheeze or crackle. HEART: S1, S2, regular rate and rhythm. No loud murmur ABDOMEN: Soft, no tenderness , guarding or rigidity, no organomegaly EXTREMITIES: No edema of feet. - Labs CBC & Chem 7: 05/19/21 10:33 05/18/21 05:39 Labs: Abnormal Lab Results - Last 24 Hours (Table) 05/19/21 Range/Units 10:33 WBC 15.1 H (3.8-10.6) k/uL RBC 3.12 L (3.80-5.40) m/uL Hgb 9.6 L D (11.4-16.0) gm/dL Hct 31.0 L (34.0-46.0) % MCHC 30.9 L (31.0-37.0) g/dL Plt Count 680 H D (150-450) k/uL Neutrophils # 12.8 H (1.3-7.7) k/uL Microbiology - Last 24 Hours (Table) 05/15/21 06:15 Blood Culture - Preliminary Blood No Growth after 96 hours Assessment and Plan (1) Pyelonephritis Current Visit: Yes Status: Acute Code(s): N12 - TUBULO-INTERSTITIAL NEPHRITIS, NOT SPCF ACUTE OR CHRONIC SNOMED Code(s): 73461053 Plan: 1patient presented to hospital with sepsis in this patient did have a fever elevated white count tachycardia with evidence of gram-negative bacteremia source is urinary and right-sided pyelonephritis with no evidence of any hydronephrosis or structural abnormality on the ultrasound, patient repeat CT did show significant swelling of the right kidney and concern for possible cholecystitis, patient is status post cholecystectomy completed 05/18/2021, patient fever has resolved however the white count is still elevated to continue with IV Unasyn for another 24 hour in the white count is trending down to finish therapy with oral Cipro Time with Patient: Less than 30
[2021-05-20] MEDS: AMPICILLIN-SULBACTAM 3 GM in SODIUM CHLORIDE 0.9% 100 ML IVPB SCH ×3 (00:21→11:34)
[2021-05-20] MEDS: KETOROLAC 15 MG/ML 1 ML VIAL IVP SCH ×3 (00:22→11:33)
[2021-05-20 04:55] VITALS: BP 120/76; PULSE 70; RESP 16; TEMP 98
[2021-05-20] MEDS: HYDROcodone/APAP 7.5-325MG 1 EACH TAB PO PRN ×2 (05:45→11:33)
[2021-05-20] MEDS: LACTATED RINGERS 1,000 ML IV SCH (05:48)
[2021-05-20] MEDS: CIPROFLOXACIN HCL 500 MG TAB PO SCH (07:49)
[2021-05-20] MEDS: MAGNESIUM OXIDE 400 MG TAB PO SCH (07:50)
[2021-05-20] MEDS: FAMOTIDINE 20 MG TAB PO SCH (07:50)
[2021-05-20] MEDS: ENOXAPARIN 40 MG/0.4 ML SYRINGE SQ SCH (07:50)
[2021-05-20 08:52] LABS: HCT 28.5 % (37.2-46.3); HGB 8.6 g/dL (12.0-15.0); MCH 29.8 pg (27.0-32.0); MCHC 30.2 g/dL (32.0-37.0); MCV 98.6 fL (80.0-97.0); Mean Platelet Volume 10.2 fL (9.5-12.2); NRBC Per 100 WBC 0 /100 WBCS (0.0-0.0); Platelet Count 536 X 10*3/uL (140-440); RBC 2.89 X 10*6/uL (4.10-5.20); RDW 13.5 % (11.5-14.5); WBC 12.35 X 10*3/uL (4.50-10.00)
--- NOTE | 2021-05-20 11:26 | P.PN ---
Subjective Progress Note Date: 05/20/21 CHIEF COMPLAINT: Cholecystitis HISTORY OF PRESENT ILLNESS: Patient is status post laparoscopic cholecystectomy. Patient reports that she is feeling better today. Her pain is controlled. Denies any nausea or vomiting. Tolerating regular diet. Afebrile. White count has decreased from 15-12. Patient seen and examined with Dr. rene PHYSICAL EXAM: VITAL SIGNS: Reviewed. GENERAL: Well-developed in no acute distress. HEENT: No sclera icterus. Extraocular movements grossly intact. Moist buccal mucosa. Head is atraumatic, normocephalic. ABDOMEN: Soft. Nondistended. Incision sites clean dry and intact. Minimal tenderness at incision sites NEUROLOGIC: Alert and oriented. Cranial nerves II through XII grossly intact. ASSESSMENT: 1. Cholecystitis status post laparoscopic cholecystectomy PLAN: -Patient can be discharged from surgical standpoint -Antibiotics per ID service -Encourage patient to ambulate Physician Docking Saw Operator note has been reviewed by physician. Signing provider agrees with the documented findings, assessment, and plan of care. Objective - Vital Signs Vital signs: Vital Signs Temp 98.0 F 05/20/21 04:35 Pulse 70 05/20/21 04:35 Resp 16 05/20/21 04:35 BP 120/76 05/20/21 04:35 Pulse Ox 96 05/20/21 04:35 Intake & Output 05/19/21 05/20/21 05/20/21 18:59 06:59 18:59 Intake Total 460 750 Balance 460 750 Intake: Intake, IV Titration 460 750 Amount Ampicillin-Sulbactam 3 gm 400 200 In Sodium Chloride 0.9% 100 ml @ 200 mls/hr IVPB Q6HR [facility] Rx#:[id number] Lactated Ringers 1,000 ml 60 550 @ 50 mls/hr IV .Q20H [facility] Rx#:[id number] Other: Voiding Method Toilet # Voids 1 - Labs CBC & Chem 7: 05/20/21 05:48 05/18/21 05:39 Labs: Abnormal Lab Results - Last 24 Hours (Table) 05/20/21 Range/Units 05:48 WBC 12.35 H (4.50-10.00) X 10*3/uL RBC 2.89 L (4.10-5.20) X 10*6/uL Hgb 8.6 L (12.0-15.0) g/dL Hct 28.5 L (37.2-46.3) % MCV 98.6 H (80.0-97.0) fL MCHC 30.2 L (32.0-37.0) g/dL Plt Count 536 H (140-440) X 10*3/uL Microbiology - Last 24 Hours (Table) 05/15/21 06:15 Blood Culture - Preliminary Blood No Growth after 120 hours
--- NOTE | 2021-05-20 22:29 | P.DS ---
Providers Date of admission: 05/11/21 14:43 Attending physician: Vy Venegas Consults: 05/10/21 18:59 Consult Physician Stat Consulting Provider: Dwayne Lantigua Consult Reason/Comments: pyelonephritis, high creatinine with history of medullary sponge kidney Do you want consulting provider notified?: Yes 05/11/21 10:24 Consult Physician Routine Consulting Provider: Rupesh Gracia Consult Reason/Comments: bacteremia Do you want consulting provider notified?: Yes 05/16/21 13:02 Consult Physician Routine Consulting Provider: Tristan Portillo Consult Reason/Comments: cholecystitis Do you want consulting provider notified?: Yes Primary care physician: Stated None Hospital Course: Diagnoses: Acute pyelonephritis. Secondary to sensitive E. coli E. coli bacteremia likely source from the UTI. sepsis secondary to above Suspected Acute cholecystitis, status post laparoscopic cholecystectomy on 05/18 History of renal stones Hospital course: This is a pleasant 46 years old female who presents with acute pyelonephritis with positive urine and blood culture for E. coli, patient has been evaluated by infectious disease team and treated with IV Unasyn and she showed interval improvement, his fever subsided, her pain and symptoms are significantly improved and patient was eager for discharge from yesterday. Her leukocytosis improved and patient was cleared for discharge by infectious disease team on 2 weeks of Cipro and she agrees. Also she is status post laparoscopic cholecystectomy on 05/18 for cholecystitis with biopsy showing chronic mild cholecystitis On the day of discharge she is awake and alert and in no chest pain or dyspnea, abdominal pain is improving and controlled. She tolerates diet well. Patient was cleared for discharge by infectious disease and surgery team Problems and management plan were discussed with the patient and he verbalized understanding and acceptance Patient was found stable and can be discharged home however he needs follow-up as an outpatient. Patient was instructed to follow up with PCP within one week and patient agrees Patient was instructed to call her medical insurance provider to find PCP and she agrees Patient was instructed to follow up with Dr. Wallace in one week and she agrees as well as infectious disease Dr. Blank in one week and she agrees as well Physical exam Gen: patient is a AAOx3, no distress CVS: S1-S2, RRR, no murmur Lungs: B/L CTA, no wheezing -Abdomen: soft, no distention, no tenderness, positive bowel sounds. Laparoscopic wounds are healing Extremity: no leg edema or induration Time spent more than 35 minutes Patient Condition at Discharge: Fair Plan - Discharge Summary Discharge Rx Participant: No New Discharge Prescriptions: New Ciprofloxacin HCl [Cipro] 500 mg PO BID 14 Days #28 tab Famotidine [Pepcid] 20 mg PO BID 10 Days #20 tab Docusate [Colace] 100 mg PO BID #30 capsule HYDROcodone/APAP 7.5-325MG [[place] 7.5-325] 1 tab PO Q6HR PRN 3 Days #12 tab PRN Reason: Pain Acetaminophen Tab [Tylenol] 650 mg PO Q6HR PRN tab PRN Reason: Mild Pain Or Fever > 100.5 Discharge Medication List Docusate [Colace] 100 mg PO BID #30 capsule 05/19/21 [Rx] HYDROcodone/APAP 7.5-325MG [[place] 7.5-325] 1 tab PO Q6HR PRN 3 Days #12 tab 05/19/21 [Rx] Acetaminophen Tab [Tylenol] 650 mg PO Q6HR PRN tab 05/20/21 [Rx] Ciprofloxacin HCl [Cipro] 500 mg PO BID 14 Days #28 tab 05/20/21 [Rx] Famotidine [Pepcid] 20 mg PO BID 10 Days #20 tab 05/20/21 [Rx] Follow up Appointment(s)/Referral(s): Rupesh Gracia MD [STAFF PHYSICIAN] - 1 Week Tristan Portillo MD [STAFF PHYSICIAN] - 05/29/21 11:15 am Patient Instructions/Handouts: *Surgery [facility] - Laparoscopic Cholecystectomy Discharge Instructions, Ciprofloxacin (By mouth), Famotidine (By mouth), Hydrocodone/Acetaminophen (By mouth), Laxative, Stool Softeners (By mouth), How to Stop Smoking (DC), Urinary Tract Infection in Women (DC) Activity/Diet/Wound Care/Special Instructions: resume regular diet as tolerated activity is restricted till you see your doctor please call your health insurance provider to find out a nearby primary care physician and call to make appointment in one week Discharge Disposition: HOME SELF-CARE
== END 2021-05-20 13:30 | disposition home or self-care (01) | DRG 854 ==
LOC: EC 15:10 → 6NMEDSUR 19:47 → OBSVTOIN 05-11 14:43 → 5NMEDONC 05-13 23:21
PROVIDERS: ADMIT Hospitalist; ATTEND Hospitalist
PROC: 0FT44ZZ Resection of Gallbladder, Percutaneous Endoscopic Approach (ICD-10-PCS; principal; 2021-05-18 08:30)
DX: A41.51 Sepsis due to Escherichia coli [E. coli] (principal); N10 Acute pyelonephritis; N17.9 Acute kidney failure, unspecified; Q61.5 Medullary cystic kidney; E87.2 Acidosis; K80.12 Calculus of gallbladder with acute and chronic cholecystitis without obstruction; R65.20 Severe sepsis without septic shock; R11.10 Vomiting, unspecified; N20.0 Calculus of kidney; Z87.442 Personal history of urinary calculi; D17.9 Benign lipomatous neoplasm, unspecified; E86.1 Hypovolemia; E87.6 Hypokalemia; F17.210 Nicotine dependence, cigarettes, uncomplicated; Z80.3 Family history of malignant neoplasm of breast; Z98.51 Tubal ligation status; Z98.890 Other specified postprocedural states; Z20.822 Contact with and (suspected) exposure to COVID-19; Z88.5 Allergy status to narcotic agent; Z87.440 Personal history of urinary (tract) infections; Z87.01 Personal history of pneumonia (recurrent)
CPT/HCPCS: 36415; 72110; 74176; 76705; 76770; 80048; 80053; 81001; 81025; 83605; 83690; 83735; 84145; 85025; 85027; 86140; 87040; 87077; 87086; 87186; 87502; 87635; 88304; 96361; 96365; 96366; 96367; 96375; 99291

== ENCOUNTER 2022-09-25 21:55 | Emergency (ER) | payer OTHER ==
[2022-09-25 22:07] VITALS: RESP 18; TEMP 98.1
--- NOTE | 2022-09-25 22:42 | XR ---
EXAMINATION TYPE: XR shoulder complete 3 views RT DATE OF EXAM: 09/25/2022 Comparison: None Clinical History: 47-year-old female pain Findings: AC joint appears intact. There may be mild joint space narrowing and minimal inferior spurring. Subac romial space is preserved. No acute fracture, subluxation, dislocation. Impression: Mild early degenerative change at the AC joint. No acute osseous abnormality seen.
[2022-09-25] MEDS ORDERED: MORPHINE SULFATE 4 MG/ML SYRINGE IM STA (22:57)
--- NOTE | 2022-09-25 23:01 | ED ---
Upper Extremity HPI - General Chief Complaint: Extremity Injury, Upper Stated Complaint: Right Arm Injury Time Seen by Provider: 09/25/22 22:05 Source: patient Mode of arrival: ambulatory Limitations: no limitations - History of Present Illness Initial Comments: 47-year-old female with past medical history of medullary sponge kidney presents to the emergency department reporting right shoulder pain. States that she has had the pain for a couple of days. Her dogs attempted to take off and she grabbed him around the collar. They ended up dragging her by her right arm. She is right-hand dominant. States that she has intense pain around the shoulder joints. She has been taking Motrin 800 at home without any improvement in her pain. No elbow or wrist pain. No numbness or tingling in the extremity. Denies neck pain. No head trauma. 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 - Related Data Previous Rx's Medication Instructions Recorded Docusate [Colace] 100 mg PO BID #30 capsule 05/19/21 HYDROcodone/APAP 7.5-325MG [[place] 1 tab PO Q6HR PRN 3 Days #12 tab 05/19/21 7.5-325] Acetaminophen Tab [Tylenol] 650 mg PO Q6HR PRN tab 05/20/21 Ciprofloxacin HCl [Cipro] 500 mg PO BID 14 Days #28 tab 05/20/21 Famotidine [Pepcid] 20 mg PO BID 10 Days #20 tab 05/20/21 HYDROcodone/APAP 7.5-325MG [[place] 1 tab PO Q4HR PRN #18 tab 09/25/22 7.5-325] Allergies Allergy/AdvReac Type Severity Reaction Status Date / Time hydromorphone HCl Allergy Swelling Verified 09/25/22 22:06 [From Dilaudid] Morpholine Analogues AdvReac Itching Verified 09/25/22 22:06 Review of Systems ROS Statement: Those systems with pertinent positive or pertinent negative responses have been documented in the HPI. ROS Other: All systems not noted in ROS Statement are negative. Past Medical History Past Medical History: Pneumonia, Renal Disease Additional Past Medical History / Comment(s): Medullary sponge kidney, pyelo nephritis, nephrolithiasis/passed stone on her own, UTI, History of Any Multi-Drug Resistant Organisms: None Reported Past Surgical History: Section, Cholecystectomy, Hernia Repair, Tubal Ligation Additional Past Surgical History / Comment(s): Umbilical hernia repair Past Anesthesia/Blood Transfusion Reactions: No Reported Reaction Past Psychological History: No Psychological Hx Reported Smoking Status: Current every day smoker Past Alcohol Use History: None Reported Past Drug Use History: None Reported - Past Family History Father Family Medical History: No Reported History Additional Family Medical History / Comment(s): Father is healthy Mother Family Medical History: Cancer Additional Family Medical History / Comment(s): Breast cancer survivor General Exam Limitations: no limitations General appearance: alert, in no apparent distress Head exam: Present: atraumatic, normocephalic, normal inspection Neck exam: Present: normal inspection. Absent: tenderness, meningismus, lymphadenopathy Respiratory exam: Present: normal lung sounds bilaterally. Absent: respiratory distress, wheezes, rales, rhonchi, stridor Cardiovascular Exam: Present: regular rate, normal rhythm, normal heart sounds. Absent: systolic murmur, diastolic murmur, rubs, gallop, clicks Extremities exam: Present: tenderness (right shoulder pain to palpation. tenderness to joint, ac joint and trapezius muscle. 2+ radial and ulnar pulses. ) Back exam: Present: normal inspection Psychiatric exam: Present: normal affect, normal mood Skin exam: Present: warm, dry, intact, normal color. Absent: rash Course Vital Signs 09/25/22 09/25/22 22:04 23:09 Temperature 98.1 F Pulse Rate 91 75 Respiratory 18 18 Rate Blood Pressure 90/54 114/78 O2 Sat by Pulse 97 99 Oximetry Medical Decision Making - Medical Decision Making Was pt. sent in by a medical professional or institution (, PA, LABORATORY CHEMIST, urgent care, hospital, or retirement...) When possible be specific @ -No Did you speak to anyone other than the patient for history (EMS, parent, family, police, friend...)? What history was obtained from this source @ -No Did you review nursing and triage notes (agree or disagree)? Why? @ -I reviewed and agree with nursing and triage notes Were old charts reviewed (outside hosp., previous admission, EMS record, old EKG, old radiological studies, urgent care reports/EKG's, retirement records)? Report findings @ -No old charts were reviewed Differential Diagnosis (chest pain, altered mental status, abdominal pain women, abdominal pain men, vaginal bleeding, weakness, fever, dyspnea, syncope, headache, dizziness, GI bleed, back pain, seizure, CVA, palpatations, mental health, musculoskeletal)? @ - fracture, strain, sprain, rotator cuff injury EKG interpreted by me (3pts min.). @ -Not done X-rays interpreted by me (1pt min.). @ -yes, no fracture CT interpreted by me (1pt min.). @ -None done U/S interpreted by me (1pt. min.). @ -None done What testing was considered but not performed or refused? (CT, X-rays, U/S, labs)? Why? @ -None What meds were considered but not given or refused? Why? @ -None Did you discuss the management of the patient with other professionals (professionals i.e. , PA, LABORATORY CHEMIST, lab, RT, psych nurse, social work instructor, marketing and development coordinator, teacher, fire information officer, case management coordinator)? Give summary @ -No Was smoking cessation discussed for >3mins.? @ -No Was critical care preformed (if so, how long)? @ -No Were there social determinants of health that impacted care today? How? (Homelessness, low income, unemployed, alcoholism, drug addiction, transportation, low edu. Level, literacy, decrease access to med. care, senior living, rehab)? @ -No Was there de-escalation of care discussed even if they declined (Discuss DNR or withdrawal of care, Hospice)? DNR status @ -No What co-morbidities impacted this encounter? (DM, HTN, Smoking, COPD, CAD, C ancer, CVA, ARF, Chemo, Hep., AIDS, mental health diagnosis, sleep apnea, morbid obesity)? @ -None Was patient admitted / discharged? Hospital course, mention meds given and route, prescriptions, significant lab abnormalities, going to OR and other pertinent info. @ -Upon arrival patient was placed into room 28. Thorough history and physical exam was performed. X-ray was performed of the right shoulder which demonstrates changes at the before meals joint. She does have some tenderness here however also has trapezius tenderness and tenderness in the shoulder joint. Patient is placed in a sling. Given a dose of morphine for pain control. Will be discharged home and instructed to wear the sling, ice and elevate the extremity. Take pain medications as directed. She will need to follow-up with the orthopedic office for further evaluation of her pain. She may need further imaging. Patient was agreeable to this plan. Instructed to return for any new or worsening symptoms. Patient discharged in stable condition Undiagnosed new problem with uncertain prognosis? @ -yes Drug Therapy requiring intensive monitoring for toxicity (Heparin, Nitro, Insulin, Cardizem)? @ -No Were any procedures done? @ -No Diagnosis/symptom? @ -acute right shoulder pain Acute, or Chronic, or Acute on Chronic? @ -acute Uncomplicated (without systemic symptoms) or Complicated (systemic symptoms)? @ -uncomplicated Side effects of treatment? @ -No Exacerbation, Progression, or Severe Exacerbation? @ -No Poses a threat to life or bodily function? How? (Chest pain, [place], [place], pneumonia, PE, COPD, DKA, ARF, appy, cholecystitis, CVA, Diverticulitis, Homicidal, Suicidal, threat to staff... and all critical care pts) @ -No Disposition Clinical Impression: Shoulder pain, right Disposition: HOME SELF-CARE Condition: Stable Instructions (If sedation given, give patient instructions): Shoulder Sprain (ED) Additional Instructions: Wear the sling. Alternate taking the Motrin with the [place] every 4 hours. Follow up with the orthopedic office for further imaging including possible MRI. Prescriptions: HYDROcodone/APAP 7.5-325MG [[place] 7.5-325] 1 tab PO Q4HR PRN #18 tab PRN Reason: Pain Is patient prescribed a controlled substance at d/c from ED?: Yes When asked, does pt state using other controlled substances?: No If prescribed controlled substance>3 days was MAPS reviewed?: Prescribed <3 Days Referrals: None,Stated [Primary Care Provider] - 1-2 days Chele Buckley DO [Doctor of Osteopathic Medicine] - 1-2 days Time of Disposition: 23:01
[2022-09-25 23:10] VITALS: BP 114/78; PULSE 75
== END 2022-09-25 23:18 | disposition home or self-care (01) ==
LOC: EC 21:55
DX: M25.511 Pain in right shoulder (principal); F17.200 Nicotine dependence, unspecified, uncomplicated; Z88.5 Allergy status to narcotic agent; Z88.6 Allergy status to analgesic agent; X58.XXXA Exposure to other specified factors, initial encounter
CPT/HCPCS: 73030; 99283; 96372; J2270

== ENCOUNTER 2024-03-03 22:20 | Emergency (ER) | payer OTHER ==
[2024-03-03 22:27] VITALS: RESP 18; TEMP 97.8
--- NOTE | 2024-03-03 22:38 | ED ---
General Adult HPI - General Chief complaint: Extremity Injury, Lower Stated complaint: Fall Time Seen by Provider: 03/03/24 22:28 Source: patient, RN notes reviewed Mode of arrival: ambulatory - History of Present Illness Initial comments: This is a 49-year-old female with history of fibromyalgia presenting to the emergency department after a fall that occurred yesterday. States that she was walking outside when she slipped on ice twisting her right ankle landing onto her right knee and injuring her right hip and lower back. She denies hitting her head or loss conscious at the time of the injury. States that she has been taking Tylenol Motrin today and is still experiencing pain of her hip, knee, ankle. States that she has pain when ambulating. Denies previous surgeries of the right lower extremity. She denies paresthesias, loss of bladder bowel continence, saddle anesthesias. - Related Data Previous Rx's Medication Instructions Recorded Docusate [Colace] 100 mg PO BID #30 capsule 05/19/21 HYDROcodone/APAP 7.5-325MG [[place] 1 tab PO Q6HR PRN 3 Days #12 tab 05/19/21 7.5-325] Acetaminophen Tab [Tylenol] 650 mg PO Q6HR PRN tab 05/20/21 Ciprofloxacin HCl [Cipro] 500 mg PO BID 14 Days #28 tab 05/20/21 Famotidine [Pepcid] 20 mg PO BID 10 Days #20 tab 05/20/21 HYDROcodone/APAP 7.5-325MG [[place] 1 tab PO Q4HR PRN #18 tab 09/25/22 7.5-325] Allergies Allergy/AdvReac Type Severity Reaction Status Date / Time hydromorphone HCl Allergy Swelling Verified 09/25/22 22:06 [From Dilaudid] Morpholine Analogues AdvReac Itching Verified 09/25/22 22:06 Review of Systems ROS Statement: Those systems with pertinent positive or pertinent negative responses have been documented in the HPI. ROS Other: All systems not noted in ROS Statement are negative. Past Medical History Past Medical History: Pneumonia, Renal Disease Additional Past Medical History / Comment(s): Medullary sponge kidney, pyelonephritis, nephrolithiasis/passed stone on her own, UTI, History of Any Multi-Drug Resistant Organisms: None Reported Past Surgical History: Section, Cholecystectomy, Hernia Repair, Tubal Ligation Additional Past Surgical History / Comment(s): Umbilical hernia repair Past Anesthesia/Blood Transfusion Reactions: No Reported Reaction Past Psychological History: No Psychological Hx Reported Smoking Status: Current every day smoker Past Alcohol Use History: None Reported Past Drug Use History: None Reported - Past Family History Father Family Medical History: No Reported History Additional Family Medical History / Comment(s): Father is healthy Mother Family Medical History: Cancer Additional Family Medical History / Comment(s): Breast cancer survivor General Exam General appearance: alert, in no apparent distress Respiratory exam: Present: normal lung sounds bilaterally. Absent: respiratory distress, wheezes, rales, rhonchi, stridor Cardiovascular Exam: Present: regular rate, normal rhythm, normal heart sounds. Absent: systolic murmur, diastolic murmur, rubs, gallop, clicks GI/Abdominal exam: Present: soft, normal bowel sounds. Absent: distended, tenderness, guarding, rebound, rigid Right Hip exam: Present: tenderness Knee exam: Present: tenderness, swelling, abrasion, ecchymosis. Absent: full ROM, laceration Lower Leg exam: Present: normal inspection, full ROM. Absent: tenderness Ankle exam: Present: tenderness, swelling, ecchymosis. Absent: full ROM Foot/Toe exam: Present: normal inspection, full ROM. Absent: tenderness Neurovascular tendon exam: Present: no vascular compromise Gait: observed and limited by pain Back exam: Present: normal inspection, tenderness (lumbar spine) Course Vital Signs 03/03/24 03/04/24 22:22 02:37 Temperature 97.8 F Pulse Rate 103 H 96 Respiratory 18 18 Rate Blood Pressure 129/52 123/88 O2 Sat by Pulse 98 97 Oximetry Medical Decision Making - Medical Decision Making Was pt. sent in by a medical professional or institution (, PA, FURNITURE DIPPER, urgent care, hospital, or long term...) When possible be specific @ -No Did you speak to anyone other than the patient for history (EMS, parent, family, police, friend...)? What history was obtained from this source @ -No Did you review nursing and triage notes (agree or disagree)? Why? @ -I reviewed and agree with nursing and triage notes Were old charts reviewed (outside hosp., previous admission, EMS record, old EKG, old radiological studies, urgent care reports/EKG's, long term records)? Report findings @ -No old charts were reviewed Differential Diagnosis (chest pain, altered mental status, abdominal pain women, abdominal pain men, vaginal bleeding, weakness, fever, dyspnea, syncope, headache, dizziness, GI bleed, back pain, seizure, CVA, palpatations, mental health, musculoskeletal)? @ -Differential Musculoskeletal Muscular strain, contusion, ligament sprain, fracture, arthritis, septic arthritis, bursitis, cellulitis, muscle spasm, nerve compression, DVT, arterial occlusion, herpes zoster, electrolyte abnormality, tumor.... This is not meant to be in all inclusive list EKG interpreted by me (3pts min.). @ -none X-rays interpreted by me (1pt min.). @ -X-ray of the right knee no acute fracture or dislocation X-ray of the right hip and AP pelvis no acute fracture or dislocation of the Xray of the right ankle no acute fracture dislocation CT interpreted by me (1pt min.). @ -None done U/S interpreted by me (1pt. min.). @ -None done What testing was considered but not performed or refused? (CT, X-rays, U/S, labs)? Why? @ -None What meds were considered but not given or refused? Why? @ -None Did you discuss the management of the patient with other professionals (professionals i.e. , PA, FURNITURE DIPPER, lab, RT, psych nurse, protective services social worker, box finisher, teacher, corporate officer, nurse case manager)? Give summary @ -No Was smoking cessation discussed for >3mins.? @ -No Was critical care preformed (if so, how long)? @ -No Were there social determinants of health that impacted care today? How? (Homelessness, low income, unemployed, alcoholism, drug addiction, transportation, low edu. Level, literacy, decrease access to med. care, group home, rehab)? @ -No Was there de-escalation of care discussed even if they declined (Discuss DNR or withdrawal of care, Hospice)? DNR status @ -No What co-morbidities impacted this encounter? (DM, HTN, Smoking, COPD, CAD, Cancer, CVA, ARF, Chemo, Hep., AIDS, mental health diagnosis, sleep apnea, morbid obesity)? @ -None Was patient admitted / discharged? Hospital course, mention meds given and route, prescriptions, significant lab abnormalities, going to OR and other pertinent info. @ -Discharge. 42-year-old female presenting with pain after fall. Noted to have ecchymosis and abrasions over the right knee, lateral malleolus ecchymosis and edema and pain to the right hip. She is neuro vas intact. Strength pain with occasional evaluated via x-ray imaging. X-rays of the right knee, hip and AP pelvis and ankle no evidence of acute process. Patient is complaining of pain with weightbearing the right ankle is here for provided with crutches to use as needed and is placed on Cj wrap. Recommend that she continue Tylenol Motrin as needed for pain relief. Discussed with Dr. Gastelum Undiagnosed new problem with uncertain prognosis? @ -No Drug Therapy requiring intensive monitoring for toxicity (Heparin, Nitro, Insulin, Cardizem)? @ -No Were any procedures done? @ -No Diagnosis/symptom? @ -fall, ankle sprain, ecchymosis of knee Acute, or Chronic, or Acute on Chronic? @ -acute Uncomplicated (without systemic symptoms) or Complicated (systemic symptoms)? @ -uncomplicated Side effects of treatment? @ -No Exacerbation, Progression, or Severe Exacerbation? @ -No Poses a threat to life or bodily function? How? (Chest pain, [place], [place], pneumonia, PE, COPD, DKA, ARF, appy, cholecystitis, CVA, Diverticulitis, Homicidal, Suicidal, threat to staff... and all critical care pts) @ -No Disposition Clinical Impression: Fall, Ankle sprain, Knee pain Disposition: HOME SELF-CARE Condition: Good Instructions (If sedation given, give patient instructions): Ankle Sprain (ED) Additional Instructions: Please return to the Emergency Department if symptoms worsen or any other concerns. Is patient prescribed a controlled substance at d/c from ED?: No Referrals: None,Stated [Primary Care Provider] - 1-2 days Time of Disposition: 02:34
[2024-03-03] MEDS: diphenhydrAMINE 50 MG CAP PO STA (22:52)
[2024-03-03] MEDS: HYDROcodone/APAP 5-325MG 1 EACH TAB PO STA (22:54)
--- NOTE | 2024-03-04 02:34 | XR ---
EXAM: XR Right Ankle Complete, 3 or More Views CLINICAL HISTORY: ITS.REASON XR Reason: fall, pain, injury TECHNIQUE: Frontal, lateral and oblique views of the right ankle. COMPARISON: No previous studies. FINDINGS: Bones/joints: Right ankle mortise is preserved. Calcaneus is unremarkable. No acute fracture or dislocation. Soft tissues: Soft tissues are unremarkable. IMPRESSION: No acute fracture or dislocation.
--- NOTE | 2024-03-04 02:35 | XR ---
EXAM: XR Right Knee, 3 Views CLINICAL HISTORY: ITS.REASON XR Reason: fall, pain, injury TECHNIQUE: Three views of the right knee. COMPARISON: No previous studies. FINDINGS: Bones/joints: Mild tricompartmental osteoarthritic changes. Normal anatomic alignment. No acute fracture or dislocation. Soft tissues: Soft tissues are unremarkable. IMPRESSION: Mild tricompartmental osteoarthritic changes. No acute fracture or dislocation.
--- NOTE | 2024-03-04 02:35 | XR ---
EXAM: XR Right Hip With Pelvis When Performed, 2 or 3 Views CLINICAL HISTORY: ITS.REASON XR Reason: fall, pain, injury TECHNIQUE: Two or three views of the right hip with pelvis when performed. COMPARISON: No previous study. FINDINGS: Bones/joints: There is widening at the pubic symphysis which requires clinical correlation. Hip joints are intact. Mild osteoarthritic changes about the sacral iliac joints. Lower lumbar spine is unremarkable. No dislocation. No acute fracture of the superior and inferior pubic rami. Soft tissues: Unremarkable. IMPRESSION: 1. Widening of the symphysis pubis. 2. No acute fracture or dislocation detected including the right hip joint. Clinical correlation is necessary.
[2024-03-04 02:42] VITALS: BP 123/88; PULSE 96
== END 2024-03-04 02:55 | disposition home or self-care (01) ==
LOC: EC 22:20
DX: S80.01XA Contusion of right knee, initial encounter (principal); S70.01XA Contusion of right hip, initial encounter; F17.200 Nicotine dependence, unspecified, uncomplicated; Z88.8 Allergy status to other drugs, medicaments and biological substances; W00.0XXA Fall on same level due to ice and snow, initial encounter; Y93.01 Activity, walking, marching and hiking
CPT/HCPCS: 73502; 99283